=== PATIENT | female | born 1945 | race Two or more races ===

== ENCOUNTER → 2019-11-05 | Outpatient (CLI) | payer MEDICARE ==
--- NOTE | 2019-11-05 10:30 | RADIOLOGY REPORT (SQ) ---
EXAM DESCRIPTION: COOKIE SWALLOW AND BARIUM SWALLOW COMPLETED DATE/TIME: 11/05/2019 8:57 am REASON FOR STUDY: GASTRO-ESOPHAGEAL REFLUX DISEASE WITHOUT ESOPHAGITIS, K21.9 K21.9 GASTRO-ESOPHAGE AL REFLUX DISEASE WITHOUT ESOPHAGITIS GLOBUS SENSATION COMPARISON: None. TECHNIQUE: Videofluoroscopic swallowing examination was performed in conjunction with speech patholo gy. Videofluoroscopic imaging was obtained and reviewed and these are the findings: Under fluoroscopic guidance, patient ingested effervescent granules followed by thick and thin barium . Fluoroscopic spot images and routine radiographic images acquired and stored on PACS. 12 MM BARIUM TABLET GIVEN: Yes. Slight delay in passage through the distal esophagus and through the GE junction. RADIATION DOSE: 3 minutes 12 seconds of fluoroscopy was used. 6 images saved to PACS. LIMITATIONS: None FINDINGS: The patient was brought into the fluoro room and placed upright on a modified barium swall ow chair. The patient was then given multiple consistencies mixed with barium to swallow under live fluoroscopic video guidance. According to the Speech Pathologist there was no penetration or aspirat ion. Mild cricopharyngeal hypertrophy. Mild esophageal dysmotility is noted. No ulcerations or mass es are seen. Small sliding hiatal hernia with mild reflux identified. Slow passage of a 12 mm bariu m tablet without stricture. IMPRESSION: NO EVIDENCE OF PENETRATION OR ASPIRATION. MILD ESOPHAGEAL DYSMOTILITY WITHOUT EVIDENCE OF STRICTURE. ALL PLEASE SEE SPEECH PATHOLOGIST REPORT FOR OTHER FINDINGS AND RECOMMENDATIONS. COMMENT: Quality ID [id number]: Final reports for procedures using fluoroscopy that document radiation exp osure indices, or exposure time and number of fluorographic images (if radiation exposure indices are not available) TECHNICAL DOCUMENTATION: JOB ID: [id number] 2010 [employer]- All Rights Reserved Reading location - IP/workstation name: [email or web address]
--- NOTE | 2019-11-05 11:30 | ST Modified Barium Swallow ---
Recommendation - Recommendations Recommendations: No oral or pharyngeal phase swallowing deficits seen. Medical Diagnoses - Medical Diagnoses Medical Diagnosis Description & ICD-10 Code(s): K21.9 Other Medical Diagnoses/Co-Morbidities: per anne-marie report: thyroid nodule, COPD - ICD-10 Tx Diagnosis Coding (1) Gastro-esophageal reflux disease without esophagitis ICD-10 Code(s): K21.9 - GASTRO-ESOPHAGEAL REFLUX DISEASE WITHOUT ESOPHAGITIS (2) Dysphagia, unspecified ICD-10 Code(s): R13.10 - DYSPHAGIA, UNSPECIFIED ST Modified Barium Swallow - General Date: 11/05/19 Referring Physician: Dr. Dong Risks/Precautions: None Date of Onset: 10/19/17 - approximate onset date Reason for Referral: globus - History History obtained from: Patient -: Medical - Patient acted as her own historian. She reports having swallowing problems for about 2 years, and states "food gets stuck". She reports having to chew foods more and swallow liquids slowly. Predominate issue is globus sensation, no coughing with eating or drinking reported, no recent pnuemonia. Patient does have significant reflux, and is not on medications. Medications: patient did not provide medication list Allergies: per patient report: statins - Functional Status Prior Functional Status: INDEPENDENT: feeding Current Functional Limitations: feeding - globus - Subjective Patient/caregiver goal(s): safe swallow Cognitive-Linguistic Function: Functional Speech Intelligibility: WNL Current Nutritional Means: PO Current symptoms: c/o Globus sensation Pain: Patient reports, 0/5 - Objective Assessment: Upright, Left Lateral - Food Trials Used Food trials used: Thin liquids, Pureed, Regular The patient: Was Able to Self Feed - Oral-Motor Skills Dentition: Full Velo-pharyngeal function: Unremarkable Laryngeal Function: clear voicing - Assessment Oral prep: Normal Labial closure: Adequate Leakage: None Mastication: Adequate Lingual Movement: Normal Oral stage: Normal for this Procedure - Pharyngeal Stage Initiation of Pharyngeal Stage Reflex: Normal Decreased laryngeal elevation: No Reduced Velopharyngeal Closure: no Reduced pressure generation: No reduced tongue-based retraction: No Pre-swallow pooling in valleculae: None Pre-Swallow pooling in pyriforms: None Reduced Thyro-Hyoid approximation: No Reduced epiglottic excursion: No Reduced pharyngeal peristalsis/contraction: No Post-swallow residulas vallecular: None Post-Swallow residuals in pyriforms: None Reduced Cricopharyngeal opening: Yes - mild - Fall Risk Assessment Medications/Conditions that increase fall risks include: Antidepressants, sedatives, anti-arrhythmic, diuretic, benzodiazipenes, neuroleptics. BP regulation problems, cardiac problems, balance or gait deficits, neurological problems. Fall Risk Actions Taken: No action needed - Behavioral Observations During evaluation process patient: was pleasant, was cooperative, able to answer questions - Treatment / Educational Needs: Treatment/Education Needs: Treatment consisted of patient education on the role of the Speech Pathologist. Patient's plan of care and golas were communicated as well as scheduling and attendance policies. Recommendations for initial home program were shared. Patient demonstrated understanding and verbalized agreement. - Impression/Summary Laryngeal Penetration: No Tracheal Aspiration: no Patient presents with: Normal swallow at eval Risk of Aspiration: Mild Risk due to: underlying COPD places patient at higher risk of aspiration. Evaluation and Findings: No significant oral or pharyngeal findings. - Recommendations Solid diet recommendations: Regular Liquid Diet Modification: Thin Dysphagia therapy with CORE MACHINE TENDER: no Reflux Precautions: Taught to Patient Recommended techniques: Fully Upright During Meal, Small Bites and Sips Information, Precautions and Recommendations: Patient (Written), Patient (Verbal) - Time Total Time: 30 - Plan of Care Strategies to optimize patient understanding include:: ongoing assessment of educational needs, implementation of educational strategies, and re-education. - - -: Thank you for the opportunity to work with this patient and his/her family. Should you have any questions about this patient's plan or progress, I can be reached at [phone].
== END ==
LOC: RAD 07:52
PROVIDERS: ATTEND Internal Medicine Pulmonary Disease
DX: K21.9 Gastro-esophageal reflux disease without esophagitis (principal); K44.9 Diaphragmatic hernia without obstruction or gangrene; E04.1 Nontoxic single thyroid nodule; J44.9 Chronic obstructive pulmonary disease, unspecified
CPT/HCPCS: 74230

== ENCOUNTER → 2020-02-21 | Outpatient (CLI) | payer MEDICARE ==
--- NOTE | 2020-02-21 14:24 | RADIOLOGY REPORT (SQ) ---
EXAM DESCRIPTION: U/S NON-OB PELVIS TV W/O DOP IMAGES COMPLETED DATE/TIME: 02/21/2020 2:10 pm REASON FOR STUDY: POSTMENOPAUSAL BLEEDING N95.0 POSTMENOPAUSAL BLEEDING COMPARISON: None. TECHNIQUE: Dynamic and static grayscale images acquired of the pelvis via transvaginal approach and recorded on PACS. Additional selected color Doppler and spectral images recorded. LIMITATIONS: None. FINDINGS: UTERUS: Contour normal. No mass. ENDOMETRIAL STRIPE: The endometrium is prominent in appearance. Complex fluid is identified within the cavity. CERVIX: No nabothian cysts. RIGHT OVARY AND DOPPLER: Not visualized maybe due to overlying bowel gas. LEFT OVARY AND DOPPLER: Not identified may be due to overlying bowel gas. FREE FLUID: None noted. OTHER: No other significant finding. MEASUREMENTS: UTERUS: 8.8 x 3.6 x 3.8 cm. ENDOMETRIAL STRIPE: A 0.7 mm RIGHT OVARY: Not visualized LEFT OVARY: Not visualized IMPRESSION: 1. The endometrial cavity is prominent in appearance. Mild complex appearing fluid is present within the cavity. Differential diagnosis includes endometritis, polyps, as well as other un derlying pathology. 2. Neither ovary is identified sonographically maybe due to overlying bowel gas. TECHNICAL DOCUMENTATION: JOB ID: [id number] 2010 [employer]- All Rights Reserved Rev Reading location - IP/workstation name: [email or web address]
== END ==
LOC: RAD 11:31
PROVIDERS: ATTEND Obstetrics & Gynecology Gynecology
DX: N95.0 Postmenopausal bleeding (principal); E66.01 Morbid (severe) obesity due to excess calories
CPT/HCPCS: 76830

== ENCOUNTER 2020-03-06 13:03 | Inpatient (IN) | payer MEDICARE ==
[2020-03-06 13:45] LABS: ABSOLUTE EOSINOPHILS # (AUTO) 0.1 10^3/uL (0.0-0.6); ABSOLUTE LYMPHOCYTES (AUTO) 0.7 10^3/uL (0.5-4.7); ABSOLUTE MONOCYTES (AUTO) 0.5 10^3/uL (0.1-1.4); ABSOLUTE NEUT (AUTO) 7.2 10^3/uL (1.7-8.2); BASOPHILS % (AUTO) 0.5 % (0-2); EOSINOPHILS % (AUTO) 1.7 % (0-6); HEMATOCRIT 33.4 % (36.0-47.0); HEMOGLOBIN 10.4 g/dL (12.0-15.5); LYMPHOCYTES % (AUTO) 8.3 % (13-45); MEAN CORPUSCULAR HEMOGLOBIN 27.7 pg (27.0-33.4); MEAN CORPUSCULAR HGB CONC 31.2 g/dL (32.0-36.0); MEAN CORPUSCULAR VOLUME 89 fl (80-97); PLATELET COUNT 321 10^3/uL (150-450); RED BLOOD COUNT 3.76 10^6/uL (3.72-5.28); RED CELL DISTRIBUTION WIDTH 14.3 % (11.5-14.0); SEGMENTED NEUTROPHILS % (AUTO) 83.5 % (42-78); TOTAL CELLS COUNTED % (AUTO) 100 %; WHITE BLOOD COUNT 8.6 10^3/uL (4.0-10.5)
[2020-03-06 14:05] LABS: ALBUMIN 3.6 g/dL (3.5-5.0); ALKALINE PHOSPHATASE 91 U/L (38-126); ASPARTATE AMINO TRANSFERASE 22 U/L (14-36); BILIRUBIN,DIRECT 0.1 mg/dL (0.0-0.4); BILIRUBIN,TOTAL 0.4 mg/dL (0.2-1.3); BLOOD UREA NITROGEN 43 mg/dL (7-20); CALCIUM 9.1 mg/dL (8.4-10.2); CARBON DIOXIDE 34 mmol/L (22-30); CHLORIDE 99 mmol/L (98-107); CREATINE KINASE 96 U/L (30-135); GLUCOSE 192 mg/dL (75-110); POTASSIUM 5.4 mmol/L (3.6-5.0)
--- NOTE | 2020-03-06 14:14 | RADIOLOGY REPORT (SQ) ---
EXAM DESCRIPTION: CHEST SINGLE VIEW IMAGES COMPLETED DATE/TIME: 03/06/2020 2:00 pm REASON FOR STUDY: shortness of breath COMPARISON: None. EXAM PARAMETERS: NUMBER OF VIEWS: One view. TECHNIQUE: An AP view of the chest was obtained. RADIATION DOSE: NA LIMITATIONS: None. FINDINGS: LUNGS AND PLEURA: Asymmetric opacities in the inferior aspect of the right hemithorax. T he right lateral costophrenic sulcus is blunted. There is no pneumothorax. MEDIASTINUM AND HILAR STRUCTURES: No mediastinal or hilar contour abnormality. HEART AND VASCULAR STRUCTURES: The cardiac silhouette is enlarged. BONES: No acute findings. HARDWARE: Breast implants. OTHER: No other finding. IMPRESSION: Asymmetric opacities in the inferior aspect of the right hemithorax. Clinical correlati on to exclude a pneumonia is recommend. TECHNICAL DOCUMENTATION: JOB ID: [id number] 2010 [employer]- All Rights Reserved Reading location - IP/workstation name: [email or web address]
[2020-03-06 14:16] LABS: CREATINE KINASE MB 3.13 ng/mL (<4.55)
[2020-03-06 14:21] LABS: ANION GAP 4 (5-19)
[2020-03-06 14:23] LABS: TROPONIN I 0.091 ng/mL
[2020-03-06] MEDS ORDERED: IPRATROPIUM/ALBUTEROL 0.5-2.5 MG/3 ML AMPUL NEB ONE (14:50)
[2020-03-06] MEDS ORDERED: METHYLPREDNISOLONE INJ 125 MG/2 ML SDV IV ONE (14:50)
--- NOTE | 2020-03-06 15:04 | ER Document Report ---
ED Respiratory Problem - General Chief Complaint: Shortness Of Breath Stated Complaint: DIFFICULTY BREATHING Time Seen by Provider: 03/06/20 14:12 Mode of Arrival: Wheelchair Information source: Patient Notes: 74-year-old female patient with history of CHF and COPD presenting with difficulty breathing. Patient reports over the last 2 weeks she has had dyspnea on exertion and worsening respiratory status. She is on oxygen at home and states that the oxygen does not seem to be working. She gets short of breath doing any activities of daily living. She denies any fever but reports inter mittent cough. She has no known exposure to COVID-19 and has not traveled recently. TRAVEL OUTSIDE OF THE [place] IN LAST 30 DAYS: No - Related Data Allergies/Adverse Reactions: peach Allergy (Verified 03/06/20 13:40) Nzbunzg-Vcc-Eal Reductase Inhibitor Allergy (Verified 03/06/20 13:40) Home Medications: Lantus, Humalog, HCTZ, Cardizem, Proair, Ventolin Past Medical History - General Information source: Patient - Social History Smoking Status: Former Smoker Family History: Reviewed & Not Pertinent Patient has homicidal ideation: No - Past Medical History Cardiac Medical History: Reports: Hx Atrial Fibrillation, Hx Hypertension Pulmonary Medical History: Reports: Hx COPD Endocrine Medical History: Reports: Hx Diabetes Mellitus Type 2 Past Surgical History: Reports: Hx Tubal Ligation - Immunizations Immunizations up to date: Yes Review of Systems - Review of Systems Constitutional: denies: Chills, Fever Cardiovascular: Orthopnea, Dyspnea Respiratory: Cough, Short of breath, Wheezing -: Yes All other systems reviewed and negative Physical Exam - Vital signs Vitals: Resp Pulse Ox 23 H 100 03/06/20 13:24 03/06/20 13:24 - Notes Notes: PHYSICAL EXAMINATION: GENERAL: Obese female, short of breath.. HEAD: Atraumatic, normocephalic. EYES: Pupils equal round and reactive to light, extraocular movements intact, conjunctiva are normal. ENT: Nares patent, oropharynx clear without exudates. Moist mucous membranes. NECK: Normal range of motion, supple without lymphadenopathy LUNGS: Slight expiratory wheezes noted to right side, diminished at bases bilaterally. HEART: Regular rate and rhythm without murmurs ABDOMEN: Soft, large round, nontender, nondistended abdomen. No guarding, no rebound. No masses appreciated. Female : deferred Musculoskeletal: Normal range of motion, no pitting or edema. No cyanosis. NEUROLOGICAL: Cranial nerves grossly intact. Normal speech, normal gait. Normal sensory, motor exams PSYCH: Normal mood, normal affect. SKIN: Warm, Dry, normal turgor, no rashes or lesions noted. Course - Re-evaluation Re-evalutation: Laboratory 03/06/20 03/06/20 03/06/20 13:25 13:25 13:25 WBC 8.6 RBC 3.76 Hgb 10.4 L Hct 33.4 L MCV 89 MCH 27.7 MCHC 31.2 L RDW 14.3 H Plt Count 321 Lymph % (Auto) 8.3 L [place] % (Auto) 6.0 Eos % (Auto) 1.7 Baso % (Auto) 0.5 Absolute Neuts (auto) 7.2 Absolute Lymphs (auto) 0.7 Absolute Monos (auto) 0.5 Absolute Eos (auto) 0.1 Absolute Basos (auto) 0.0 Seg Neutrophils % 83.5 H Sodium 136.8 L Potassium 5.4 H Chloride 99 Carbon Dioxide 34 H Anion Gap 4 L BUN 43 H Creatinine 0.83 Est GFR ( Amer) > 60 Est GFR (MDRD) Non-Af > 60 Glucose 192 H Calcium 9.1 Total Bilirubin 0.4 Direct Bilirubin 0.1 Neonat Total Bilirubin Not Reportable Neonat Direct Bilirubin Not Reportable Neonat Indirect Bili Not Reportable AST 22 ALT 22 Alkaline Phosphatase 91 Creatine Kinase 96 CK-MB (CK-2) 3.13 Troponin I 0.091 NT-Pro-B Natriuret Pep 2760 H Total Protein 7.0 Albumin 3.6 Chest X-Ray 03/06/20 13:34 IMPRESSION: Asymmetric opacities in the inferior aspect of the right hemithorax. Clinical correlation to exclude a pneumonia is recommend. Spoke with hospitalist, Dee Navarro who is requesting a repeat troponin prior to patient's admission. Patient resting comfortably at this time, she is not h ypoxic as long as she is sitting in the bed on her oxygen. 03/06/20 19:56 Patient accepted for admission by hospitalist. She is being admitted due to her dyspnea on any exertion. She is in agreement with plan of care. - Vital Signs Vital signs: Temp Pulse Resp BP Pulse Ox 98.5 F 97 19 130/78 H 97 03/06/20 13:46 03/06/20 13:40 03/06/20 19:11 03/06/20 19:11 03/06/20 19:11 - Laboratory Result Diagrams: 03/06/20 13:25 03/06/20 13:25 Laboratory results interpreted by me: 03/06/20 03/06/20 03/06/20 13:25 13:25 13:25 Hgb 10.4 L Hct 33.4 L MCHC 31.2 L RDW 14.3 H Lymph % (Auto) 8.3 L Seg Neutrophils % 83.5 H Sodium 136.8 L Potassium 5.4 H Carbon Dioxide 34 H Anion Gap 4 L BUN 43 H Glucose 192 H NT-Pro-B Natriuret Pep 2760 H Urine Protein Urine Glucose (UA) Urine Blood Ur Leukocyte Esterase 03/06/20 16:05 Hgb Hct MCHC RDW Lymph % (Auto) Seg Neutrophils % Sodium Potassium Carbon Dioxide Anion Gap BUN Glucose NT-Pro-B Natriuret Pep Urine Protein >=500 H Urine Glucose (UA) 50 H Urine Blood LARGE H Ur Leukocyte Esterase SMALL H Discharge - Discharge Clinical Impression: COPD exacerbation Condition: Stable Disposition: ADMITTED INPATIENT Admitting Provider: Lima (Hospitalist) Unit Admitted: Medical Floor
[2020-03-06 16:44] LABS: APPEARANCE,URINE CLOUDY; BILIRUBIN,URINE NEGATIVE (NEGATIVE); COLOR,URINE YELLOW; GLUCOSE, URINE 50 mg/dL (NEGATIVE); KETONES,URINE NEGATIVE (NEGATIVE); LEUKOCYTE ESTERASE,URINE SMALL (NEGATIVE); NITRITE,URINE NEGATIVE (NEGATIVE); PROTEIN,URINE >=500 mg/dL (NEGATIVE); URINE SPECIFIC GRAVITY 1.015; UROBILINOGEN,URINE NEGATIVE mg/dL (<2.0)
[2020-03-06] MEDS ORDERED: CEFTRIAXONE 1 GM/D5W RTU 1 GM/50 ML RTUPB IV ONE (19:24)
--- NOTE | 2020-03-06 20:18 | EKG REPORT ---
SEVERITY:- NORMAL ECG - SINUS RHYTHM : Confirmed by: Kenji Stanley MD 06-Mar-2020 20:17:57
[2020-03-06] MEDS ORDERED: MELATONIN 5 MG TABLET PO PRN (20:32)
[2020-03-06] MEDS ORDERED: LORAZEPAM INJ 2 MG/1 ML VIAL IV PRN (20:32)
[2020-03-06] MEDS ORDERED: INSULIN REG, HUMAN 100 UNIT/ML 3 ML VIAL (PYX) SUBCUT PRN (20:32)
[2020-03-06] MEDS ORDERED: LEVALBUTEROL HCL NEB 0.63 MG/3 ML AMPUL NEB PRN (20:32)
[2020-03-06] MEDS ORDERED: MORPHINE SULFATE 10 MG/ML INJ IV PRN ×4 (20:32→20:53)
[2020-03-06] MEDS ORDERED: ACETAMINOPHEN 325 MG TABLET PO PRN (20:32)
[2020-03-06] MEDS ORDERED: MAGNESIUM HYDROXIDE SUSP 30 ML UDCUP PO PRN (20:32)
[2020-03-06] MEDS ORDERED: GUAIFENESIN SYRP 200 MG/10 ML UDC PO PRN (20:32)
[2020-03-06] MEDS ORDERED: MAG HYDROX/AL HYDROX/SIMETH SUSP 30 ML UDCUP PO PRN (20:32)
[2020-03-06] MEDS ORDERED: PROMETHAZINE HCL INJ 25 MG/1 ML VIAL IV PRN (20:32)
[2020-03-06] MEDS ORDERED: DEXTROSE 40% GEL 15 GM TUBE PO PRN ×2 (20:38)
[2020-03-06] MEDS ORDERED: GLUCAGON,HUMAN RECOMB 1 MG INJ IM PRN (20:38)
[2020-03-06] MEDS ORDERED: DEXTROSE 50%-WATER 25 GM/50 ML DISP.SYRIN IV PRN ×2 (20:38)
[2020-03-06] MEDS: METHYLPREDNISOLONE INJ 40 MG/1 ML SDV IV SCH (21:29)
[2020-03-06] MEDS: HEPARIN SOD (PORCINE) 5,000 UNIT/ML 1 ML VIAL SUBCUT SCH (23:47)
[2020-03-06] MEDS: FAMOTIDINE 20 MG TABLET PO SCH (23:47)
[2020-03-07] MEDS: IPRATROPIUM BROMIDE 0.02% NEB 0.5 MG/2.5 ML AMPUL NEB SCH ×2 (00:33→08:18)
[2020-03-07] MEDS: LEVALBUTEROL HCL NEB 1.25 MG/3 ML AMPUL NEB SCH ×3 (00:33→15:46)
[2020-03-07] MEDS: METHYLPREDNISOLONE INJ 40 MG/1 ML SDV IV SCH ×3 (03:19→17:51)
--- NOTE | 2020-03-07 03:45 | PDOC H&P ---
History of Present Illness Admission Date/PCP: 03/06/20 20:04 Dr. Chaney Patient complains of: Dyspnea History of Present Illness: BIANCA DICKENS is a 74 year old female who presented to the emergency room with a 1 month history of dyspnea. She admits progressively worsening dyspnea at rest over the last 1 month with accompanying progressively severe dyspnea on exertion over the last 2 weeks becoming so severe today (unable to perform activities of daily living) that she felt it necessary to come the emergency room. Her dyspnea has been associated with an intermittent nonproductive cough. She denies other associated or accompanying signs and symptoms. She admits prior similar episodes secondary to her COPD and CHF. She admits that this episode is very much like her usual exacerbations of COPD. She denies identification of any additional aggravating or ameliorating factors for her dyspnea. In the emergency room she was found to have severe hypoxia on exertion even with continuous supplemental oxygen. She was subsequently admitted to the hospital for further evaluation and treatment. Past Medical History Cardiac Medical History: Reports: Atrial Fibrillation, Congestive Heart Failure, Hypertension Denies: Coronary Artery Disease, Myocardial Infarction, Hyperlipidema Pulmonary Medical History: Reports: Asthma - As a child, Bronchitis, Chronic Obstructive Pulmonary Disease (COPD), Pneumonia, Respiratory Failure - Chronic hypoxic respiratory failure on supplemental oxygen @ home, Other - Restrictive lung disease secondary to morbid obesity Denies: Sleep Apnea EENT Medical History: Denies: Cataracts, Ears - Hearing aids Neurological Medical History: Denies: Hemorrhagic CVA, Ischemic CVA, Seizures Endocrine Medical History: Reports: Diabetes Mellitus Type 2, Obesity, Other Denies: Diabetes Mellitus Type 1, Hyperthyroidism, Hypothyroidism Renal/ Medical History: Reports: Other - Recent vaginal bleeding currently being investigated by PCP. 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 Denies: Arthritis, Gout Skin Medical History: Denies: Eczema, Psoriasis Psychiatric Medical History: Denies: Alcohol Dependency, Substance Abuse, Tobacco Dependency Traumatic Medical History: Reports: None Hematology: Denies: Anemia, Bleeding Tendencies Infectious Medical History: Reports: None Past Surgical History Past Surgical History: Bilateral breast reduction with bilateral breast implantations for cosmetic improvement, "tummy tuck surgery", heel spur surgery Past Surgical History: Reports: Orthopedic Surgery - Bilateral carpal tunnel, Tonsillectomy, Tubal Ligation, Other - Bilateral cataracts with lens replacements Social History Information Source: Patient Lives with: Family Smoking Status: Former Smoker Electronic Cigarette use?: No Frequency of Alcohol Use: None Hx Recreational Drug Use: No Drugs: None Hx Prescription Drug Abuse: No - Advance Directive Resuscitation Status: Full Code Surrogate healthcare decision maker:: David Dickens Family History Family History: Hypertension. denies: CAD, DM, Malignancy Parental Family History Reviewed: Yes Children Family History Reviewed: No Sibling(s) Family History Reviewed.: Yes Medication/Allergy Home Medications: Albuterol Sulfate [Proair HFA Inhalation Aerosol 8.5 gm MDI] 03/07/20 Diltiazem HCl [Diltiazem 24Hr ER] 03/07/20 Hydrochlorothiazide [Hydrodiuril 25 mg Tablet] 03/07/20 Insulin Glargine,Hum.rec.anlog [Lantus (Pyxis) Insulin 100 Unit/1 ml 10 ml] 03/07/20 Insulin Lispro [Humalog Insulin (Lispro) 100 unit/mL] 03/07/20 Irbesartan 03/07/20 Allergies/Adverse Reactions: peach Allergy (Verified 03/06/20 13:40) [id number] Reductase Inhibitor Allergy (Verified 03/06/20 13:40) Review of Systems Constitutional: ABSENT: chills, fever(s) Eyes: ABSENT: visual disturbances, other - Eye pain Ears: ABSENT: hearing changes, other - Ear pain Nose, Mouth, and Throat: ABSENT: headache(s), sore throat Cardiovascular: PRESENT: as per HPI, dyspnea on exertion. ABSENT: chest pain, edema, orthropnea, palpitations Respiratory: PRESENT: as per HPI, cough, dyspnea. ABSENT: hemoptysis, sputum Gastrointestinal: ABSENT: abdominal pain, constipation, diarrhea, nausea, vomiting Genitourinary: PRESENT: other - Recent UTI treated with 3 different antibiotics, recent vaginal bleeding currently being investigated. ABSENT: dysuria, hematuria Musculoskeletal: ABSENT: back pain, joint swelling Integumentary: ABSENT: pruritus, rash Neurological: ABSENT: confusion, convulsions, focal weakness, memory loss, syncope Psychiatric: ABSENT: anxiety, depression Endocrine: ABSENT: cold intolerance, heat intolerance, polydipsia, polyphagia, polyuria Hematologic/Lymphatic: ABSENT: easy bleeding, easy bruising Allergic/Immunologic: ABSENT: seasonal rhinorrhea Physical Exam Vital Signs: Temp Pulse Resp BP Pulse Ox 98.5 F 97 19 130/78 H 97 03/06/20 13:46 03/06/20 13:40 03/06/20 19:11 03/06/20 19:11 03/06/20 19:11 Intake & Output 03/04/20 03/05/20 03/06/20 23:59 23:59 23:59 Weight 118.3 kg General appearance: PRESENT: no acute distress, cooperative, morbidly obese, other - On supplemental oxygen via nasal cannula at the time of my evaluation Head exam: PRESENT: atraumatic, normocephalic Eye exam: PRESENT: conjunctiva pink. ABSENT: conjunctival injection, scleral icterus Ear exam: PRESENT: normal external ear exam. ABSENT: bleeding, drainage Mouth exam: PRESENT: dry mucosa, neck supple Neck exam: ABSENT: thyromegaly, tracheal deviation Respiratory exam: PRESENT: decreased breath sounds - Moderately decreased breath sounds throughout all cruz, prolonged expiratory phas - Moderately prolonged expiratory phase present throughout all cruz, symmetrical, wheezes - Moderate expiratory wheezes present throughout all cruz Cardiovascular exam: PRESENT: RRR. ABSENT: clicks, gallop, rubs Pulses: PRESENT: normal radial pulses, normal dorsalis pedis pul Vascular exam: PRESENT: normal capillary refill. ABSENT: pallor GI/Abdominal exam: PRESENT: normal bowel sounds, soft. ABSENT: tenderness Rectal exam: PRESENT: deferred Extremities exam: ABSENT: joint swelling, pedal edema Musculoskeletal exam: ABSENT: ambulatory - Usually uses a walker but is too dyspneic to attempt ambulation, deformity, dislocation Neurological exam: PRESENT: alert, oriented to person, oriented to place, oriented to time, oriented to situation, CN II-XII grossly intact. ABSENT: motor sensory deficit Psychiatric exam: PRESENT: appropriate affect, normal mood Skin exam: PRESENT: dry, intact, warm. ABSENT: jaundice, rash, urticaria Results Laboratory Results: 03/06/20 13:25 03/06/20 13:25 03/06/20 03/06/20 03/06/20 13:25 13:25 16:05 WBC 8.6 RBC 3.76 Hgb 10.4 L Hct 33.4 L MCV 89 MCH 27.7 MCHC 31.2 L RDW 14.3 H Plt Count 321 Seg Neutrophils % 83.5 H Sodium 136.8 L Potassium 5.4 H Chloride 99 Carbon Dioxide 34 H Anion Gap 4 L BUN 43 H Creatinine 0.83 Est GFR ( Amer) > 60 Glucose 192 H Calcium 9.1 Total Bilirubin 0.4 AST 22 Alkaline Phosphatase 91 Total Protein 7.0 Albumin 3.6 Urine Color YELLOW Urine Appearance CLOUDY Urine pH 5.0 Ur Specific [place] 1.015 Urine Protein >=500 H Urine Glucose (UA) 50 H Urine Ketones NEGATIVE Urine Blood LARGE H Urine Nitrite NEGATIVE Ur Leukocyte Esterase SMALL H Urine WBC (Auto) 104 Urine RBC (Auto) >182 03/06/20 03/06/20 03/06/20 13:25 13:25 18:49 Creatine Kinase 96 CK-MB (CK-2) 3.13 Troponin I 0.091 0.087 NT-Pro-B Natriuret Pep 2760 H Impressions: Chest X-Ray 03/06/20 13:34 IMPRESSION: Asymmetric opacities in the inferior aspect of the right hemithorax. Clinical correlation to exclude a pneumonia is recommend. Assessment and Plan - Diagnosis (1) COPD exacerbation Is this a current diagnosis for this admission?: Yes (2) Acute and chronic respiratory failure with hypoxia Is this a current diagnosis for this admission?: Yes (3) Diabetes mellitus type 2 in obese Is this a current diagnosis for this admission?: Yes (4) Hypertension Qualifiers: Hypertension type: essential hypertension Qualified Code(s): I10 - Essential (primary) hypertension Is this a current diagnosis for this admission?: Yes (5) Congestive heart failure Qualifiers: Heart failure type: unspecified Heart failure chronicity: unspecified Qualified Code(s): I50.9 - Heart failure, unspecified Is this a current diagnosis for this admission?: Yes (6) Gastro-esophageal reflux disease without esophagitis Is this a current diagnosis for this admission?: Yes (7) Anemia Qualifiers: Anemia type: unspecified type Qualified Code(s): D64.9 - Anemia, unspecified Is this a current diagnosis for this admission?: Yes (8) Morbid obesity Is this a current diagnosis for this admission?: Yes - Plan Summary Summary: Patient will be admitted to the medical floor where she will receive routine supportive and symptomatic cares. She will be treated with an aggressive pulmonary toilet utilizing nebulized Xopenex, Atrovent, Mucomyst and Pulmicort. She will receive a continuation of a short burst of steroid therapy with Solu- Medrol 40 mg IV every 6 hours x3 doses. She will receive supplemental oxygen to maintain an adequate oxygen saturation utilizing nasal cannula oxygen with possible use of noninvasive airway pressure support devices such as BiPAP or CPAP if needed. CBCs, metabolic profiles, arterial and/or venous blood gases and magnesium levels will be obtained as appropriate. A thyroid profile, lipid profile and hemoglobin A1c will be obtained. Patient will be on a cardiac and d iabetic restricted diet. Patient's usual medications will be resumed, as appropriate, once her medication list has been verified and reconciled. She will use Ativan 1 mg IV every 4 hours as needed for anxiety or restlessness. She will use morphine sulfate 2 to 4 mg IV every 2 hours as needed for pain. Before meals and at bedtime Accu-Cheks will be performed with sliding scale regular insulin used for hyperglycemia and a hypoglycemic protocol in place. - Time Time Spent with patient: 15-24 minutes Medications reviewed and adjusted accordingly: Yes Anticipated discharge: Home - Inpatient Certification Based on my medical assessment, after consideration of the patient's norma rbidities, presenting symptoms, or acuity I expect that the services needed warrant INPATIENT care.: Yes I certify that my determination is in accordance with my understanding of Medicare's requirements for reasonable and necessary INPATIENT services [42 CFR 412.3e].: Yes Medical Necessity: Significant Comorbidiites Make Outpatient Treatment Too Risky, Need Close Monitoring Due to Risk of Patient Decompensation, Need for Nebulizer Therapy and Monitoring of Response, Risk of Complication if Not Cared For in Hospital
[2020-03-07 05:07] LABS: APPEARANCE,URINE SLIGHTLY-CLOUDY; BILIRUBIN,URINE NEGATIVE (NEGATIVE); COLOR,URINE YELLOW; GLUCOSE, URINE >=500 mg/dL (NEGATIVE); KETONES,URINE TRACE mg/dL (NEGATIVE); PROTEIN,URINE >=500 mg/dL (NEGATIVE); URINE SPECIFIC GRAVITY 1.014; UROBILINOGEN,URINE NEGATIVE mg/dL (<2.0)
[2020-03-07] MEDS: HEPARIN SOD (PORCINE) 5,000 UNIT/ML 1 ML VIAL SUBCUT SCH ×3 (05:23→22:39)
[2020-03-07 06:47] LABS: HEMATOCRIT 34.9 % (36.0-47.0); MEAN CORPUSCULAR HEMOGLOBIN 27.9 pg (27.0-33.4); MEAN CORPUSCULAR HGB CONC 31.4 g/dL (32.0-36.0); MEAN CORPUSCULAR VOLUME 89 fl (80-97); PLATELET COUNT 335 10^3/uL (150-450); RED BLOOD COUNT 3.94 10^6/uL (3.72-5.28); RED CELL DISTRIBUTION WIDTH 14.3 % (11.5-14.0); VENOUS BLOOD BASE EXCESS 3.7 mmol/L; VENOUS BLOOD HCO3 31.4 mmol/L (20-32); VENOUS BLOOD PCO2 64.1 mmHg (35-63); VENOUS BLOOD PH 7.31 (7.30-7.42)
[2020-03-07 06:57] LABS: ABSOLUTE RETICS # 0.062 10^6/uL (0.028-0.122); RETICULOCYTE COUNT (AUTO) 1.56 % (0.66-2.85)
[2020-03-07 07:11] LABS: ANION GAP 7 (5-19); BLOOD UREA NITROGEN 44 mg/dL (7-20); CALCIUM 9.4 mg/dL (8.4-10.2); CARBON DIOXIDE 32 mmol/L (22-30); CHLORIDE 95 mmol/L (98-107); CHOLESTEROL 247.37 mg/dL (0-200); GLUCOSE 356 mg/dL (75-110); IRON(TIBC) 70.1 ug/dL (37-170); TRIGLYCERIDES 142 mg/dL (<150)
[2020-03-07 07:22] LABS: DIRECT LDL 156 mg/dL (<100)
[2020-03-07 07:26] LABS: POTASSIUM 6.1 mmol/L (3.6-5.0)
[2020-03-07] MEDS ORDERED: SODIUM POLYSTYRENE SULFONATE 15 GM/60 ML PO ONE (07:43)
[2020-03-07] MEDS: BUDESONIDE NEB 0.5 MG/2 ML AMPUL NEB SCH ×2 (08:18→19:52)
[2020-03-07] MEDS: ACETYLCYSTEINE 20% SOLN 800 MG/4 ML VIAL.NEB NEB SCH ×2 (08:18→19:52)
[2020-03-07] MEDS: LEVOFLOXACIN 750 MG TABLET PO SCH (10:05)
[2020-03-07] MEDS: DOCUSATE SODIUM 100 MG CAPSULE PO SCH ×2 (10:06→17:49)
[2020-03-07] MEDS: FAMOTIDINE 20 MG TABLET PO SCH ×2 (10:06→22:39)
[2020-03-07] MEDS ORDERED: (PENDING PHARMACY ID) (Albuterol Sulfate 2 PUFF) IH PRN (10:43)
[2020-03-07] MEDS ORDERED: (PENDING PHARMACY ID) (Diltiazem Hcl [Diltiazem 24hr Er] 120 MG) PO SCH (10:45)
[2020-03-07] MEDS ORDERED: CHOLECALCIFEROL PO SCH (10:45)
[2020-03-07] MEDS ORDERED: (PENDING PHARMACY ID) (Irbesartan [Irbesartan] 300 MG) PO SCH (10:45)
[2020-03-07] MEDS ORDERED: ALBUTEROL SULFATE HFA (90 MCG/PUFF) 200 PUFF/8.5 GM MDI IH PRN ×2 (11:18→14:30)
--- NOTE | 2020-03-07 11:27 | EKG REPORT ---
SEVERITY:- ABNORMAL ECG - SINUS RHYTHM CONSIDER LEFT VENTRICULAR HYPERTROPHY : Confirmed by: Kenji Stanley MD 07-Mar-2020 11:26:57
[2020-03-07] MEDS: HYDROCHLOROTHIAZIDE 25 MG TABLET PO SCH (11:53)
[2020-03-07] MEDS: INSULIN LISPRO 100 UNIT/ML 3 ML VIAL SUBCUT SCH ×4 (11:53→22:29)
[2020-03-07] MEDS: DILTIAZEM HCL 120 MG CAP.SR.24H PO SCH (11:54)
[2020-03-07] MEDS: LOSARTAN POTASSIUM 50 MG TABLET PO SCH (11:54)
[2020-03-07] MEDS ORDERED: DEXTROSE 40% GEL 15 GM TUBE PO PRN ×4 (14:14→14:16)
[2020-03-07] MEDS ORDERED: GLUCAGON,HUMAN RECOMB 1 MG INJ IM PRN (14:16)
[2020-03-07] MEDS ORDERED: DEXTROSE 50%-WATER 25 GM/50 ML DISP.SYRIN IV PRN ×2 (14:16)
--- NOTE | 2020-03-07 14:18 | PDOC PROGRESS REPORT ---
Subjective Progress Note for:: 03/07/20 Subjective:: BIANCA SERVIN is a 74 year old female who presented to the emergency room with a 1 month history of dyspnea. She admits progressively worsening dyspnea at rest over the last 1 month with accompanying progressively severe dyspnea on exertion over the last 2 weeks becoming so severe today (unable to perform activities of daily living) that she felt it necessary to come the emergency room. Her dyspnea has been associated with an intermittent nonproductive cough. She denies other associated or accompanying signs and symptoms. She admits prior similar episodes secondary to her COPD and CHF. She admits that this episode is very much like her usual exacerbations of COPD. She denies identification of any additional aggravating or ameliorating factors for her dyspnea. In the emergency room she was found to have severe hypoxia on exertion even with continuous supplemental oxygen. She was subsequently admitted to the hospital for further evaluation and treatment. 03/07/2020. No acute events overnight. Patient reporting mild improvement of her symptoms, still complaining of getting winded easily, using nebs on my encounter, in no apparent distress, denies any fever, chills, nausea, vomiting, diarrhea, constipation or any urinary symptoms. Reason For Visit: ACUTE EXACERBATION OF COPD Physical Exam Vital Signs: Temp Pulse Resp BP Pulse Ox 97.7 F 97 18 122/55 L 93 03/07/20 04:00 03/07/20 08:17 03/07/20 08:17 03/07/20 04:00 03/07/20 08:17 Intake & Output 03/06/20 03/07/20 03/08/20 06:59 06:59 06:59 Intake Total 50 Output Total 1 Balance 49 Weight 118.3 kg 118.3 kg General appearance: PRESENT: morbidly obese Head exam: PRESENT: atraumatic, normocephalic Respiratory exam: PRESENT: clear to auscultation ute, decreased breath sounds. ABSENT: rales, rhonchi, wheezes Cardiovascular exam: PRESENT: RRR. ABSENT: diastolic murmur, rubs, systolic murmur GI/Abdominal exam: PRESENT: normal bowel sounds, soft. ABSENT: distended, guarding, mass, organolmegaly, rebound, tenderness Neurological exam: PRESENT: alert, awake, oriented to person, oriented to place, oriented to time, oriented to situation, CN II-XII grossly intact. ABSENT: motor sensory deficit Results Laboratory Results: 03/07/20 06:21 03/07/20 06:21 03/06/20 03/06/20 03/06/20 13:25 13:25 13:25 WBC 8.6 RBC 3.76 Hgb 10.4 L Hct 33.4 L MCV 89 MCH 27.7 MCHC 31.2 L RDW 14.3 H Plt Count 321 Seg Neutrophils % 83.5 H Retic Count (auto) VBG pH VBG pCO2 VBG HCO3 VBG Base Excess Sodium 136.8 L Potassium 5.4 H Chloride 99 Carbon Dioxide 34 H Anion Gap 4 L BUN 43 H Creatinine 0.83 Est GFR ( Amer) > 60 Glucose 192 H Calcium 9.1 Magnesium Iron TIBC % Saturation Transferrin Ferritin Total Bilirubin 0.4 AST 22 Alkaline Phosphatase 91 Total Protein 7.0 Albumin 3.6 Triglycerides Cholesterol LDL Cholesterol Direct VLDL Cholesterol HDL Cholesterol Vitamin B12 Folate TSH Free T3 pg/mL 2.88 Urine Color Urine Appearance Urine pH Ur Specific [place] Urine Protein Urine Glucose (UA) Urine Ketones Urine Blood Urine Nitrite Ur Leukocyte Esterase Urine WBC (Auto) Urine RBC (Auto) 03/06/20 03/07/20 03/07/20 16:05 04:02 06:21 WBC 8.0 RBC 3.94 Hgb 11.0 L Hct 34.9 L MCV 89 MCH 27.9 MCHC 31.4 L RDW 14.3 H Plt Count 335 Seg Neutrophils % Retic Count (auto) VBG pH VBG pCO2 VBG HCO3 VBG Base Excess Sodium Potassium Chloride Carbon Dioxide Anion Gap BUN Creatinine Est GFR ( Amer) Glucose Calcium Magnesium Iron TIBC % Saturation Transferrin Ferritin Total Bilirubin AST Alkaline Phosphatase Total Protein Albumin Triglycerides Cholesterol LDL Cholesterol Direct VLDL Cholesterol HDL Cholesterol Vitamin B12 Folate TSH Free T3 pg/mL Urine Color YELLOW YELLOW Urine Appearance CLOUDY SLIGHTLY-CLOUDY Urine pH 5.0 5.0 Ur Specific [place] 1.015 1.014 Urine Protein >=500 H >=500 H Urine Glucose (UA) 50 H >=500 H Urine Ketones NEGATIVE TRACE H Urine Blood LARGE H MODERATE H Urine Nitrite NEGATIVE Ur Leukocyte Esterase SMALL H Urine WBC (Auto) 104 Urine RBC (Auto) >182 28 03/07/20 03/07/20 03/07/20 06:21 06:21 06:21 WBC RBC Hgb Hct MCV MCH MCHC RDW Plt Count Seg Neutrophils % Retic Count (auto) VBG pH 7.31 VBG pCO2 64.1 H VBG HCO3 31.4 VBG Base Excess 3.7 Sodium 133.6 L Potassium 6.1 H* Chloride 95 L Carbon Dioxide 32 H Anion Gap 7 BUN 44 H Creatinine 0.91 Est GFR ( Amer) > 60 Glucose 356 H Calcium 9.4 Magnesium 1.9 Iron TIBC % Saturation Transferrin Ferritin Total Bilirubin AST Alkaline Phosphatase Total Protein Albumin Triglycerides 142 Cholesterol 247.37 H LDL Cholesterol Direct 156 H VLDL Cholesterol 28.0 HDL Cholesterol 72 Vitamin B12 Folate TSH 0.85 Free T3 pg/mL Urine Color Urine Appearance Urine pH Ur Specific [place] Urine Protein Urine Glucose (UA) Urine Ketones Urine Blood Urine Nitrite Ur Leukocyte Esterase Urine WBC (Auto) Urine RBC (Auto) 03/07/20 03/07/20 03/07/20 06:21 06:21 06:21 WBC RBC Hgb Hct MCV MCH MCHC RDW Plt Count Seg Neutrophils % Retic Count (auto) 1.56 VBG pH VBG pCO2 VBG HCO3 VBG Base Excess Sodium Potassium Chloride Carbon Dioxide Anion Gap BUN Creatinine Est GFR ( Amer) Glucose Calcium Magnesium Iron 70.1 TIBC 318 % Saturation 22 Transferrin 251.67 Ferritin 69.90 Total Bilirubin AST Alkaline Phosphatase Total Protein Albumin Triglycerides Cholesterol LDL Cholesterol Direct VLDL Cholesterol HDL Cholesterol Vitamin B12 442.0 Folate 12.80 TSH Free T3 pg/mL Urine Color Urine Appearance Urine pH Ur Specific [place] Urine Protein Urine Glucose (UA) Urine Ketones Urine Blood Urine Nitrite Ur Leukocyte Esterase Urine WBC (Auto) Urine RBC (Auto) 03/06/20 03/06/20 03/06/20 13:25 13:25 18:49 Creatine Kinase 96 CK-MB (CK-2) 3.13 Troponin I 0.091 0.087 NT-Pro-B Natriuret Pep 2760 H Impressions: Chest X-Ray 03/06/20 13:34 IMPRESSION: Asymmetric opacities in the inferior aspect of the right hemithorax. Clinical correlation to exclude a pneumonia is recommend. Assessment and Plan - Diagnosis (1) Acute and chronic respiratory failure with hypoxia Is this a current diagnosis for this admission?: Yes Plan: Likely combination of acute COPD exacerbation complicated by underlying CHF. History of COPD on home O2 3 L/min. Improving. SPO2 WNL on 3 to 4 L. Continue BiPAP, duo nebs, LABA, LABA, ICS, flutter valve, incentive spirometry, IV steroids. (2) COPD exacerbation Is this a current diagnosis for this admission?: Yes Plan: Former smoker. History of COPD on 3 L oxygen nasal cannula. Plan as per #1. (3) Diabetes mellitus type 2 in obese Is this a current diagnosis for this admission?: Yes Plan: Hemoglobin A1c 7%. Blood glucose not optimized. Sees director geophysical laboratory as outpatient is on Lantus and Humalog. Diabetic diet, sliding scale insulin, pre-meal insulin, basal insulin, Accu- Chek, hypoglycemia protocol. (4) Hypertension Qualifiers: Hypertension type: essential hypertension Qualified Code(s): I10 - Essential (primary) hypertension Is this a current diagnosis for this admission?: Yes Plan: Controlled. Restart home meds. Adjust meds as needed. Outpatient PCP follow- up. (5) Morbid obesity Is this a current diagnosis for this admission?: Yes Plan: BMI 50.9. TSH WNL. Diet and lifestyle modification recommended. (6) Abnormal vaginal bleeding in postmenopausal patient Is this a current diagnosis for this admission?: Yes Plan: Patient gives history of vaginal bleeding for the last several months. Patient's PCP is aware and patient has been referred to [facility] and has had a biopsy of her uterus. Pending results. Outpatient PCP and [facility] follow-up. (7) Anemia Qualifiers: Anemia type: iron deficiency Is this a current diagnosis for this admission?: Yes Plan: Most likely due to vaginal bleed. Monitor H&H. Supportive transfusions. Denies any nosebleeds, hematemesis, hemoptysis, melena or hematochezia. Endorses history of vaginal bleeding. Plan as per above. (8) Congestive heart failure Qualifiers: Heart failure type: systolic Heart failure chronicity: unspecified Qualified Code(s): I50.20 - Unspecified systolic (congestive) heart failure Is this a current diagnosis for this admission?: Yes Plan: History of systolic heart failure. Presented with acute CHF exacerbation. No echo available. Consulting [employer] Dr. Vallejo whom she saw recently. Denies any anginal symptoms. proBNP 2790. No baseline available. Troponin mildly elevated. Likely demand mismatch. EKG no acute changes. Cardiac diet. Fluid restriction. Resume home meds.
[2020-03-07] MEDS ORDERED: INSULIN GLARGINE HUM REC ANLOG 100 UNIT SQ SCH (22:00)
[2020-03-07] MEDS ORDERED: INSULIN GLARGINE,HUM.REC.ANLOG 1,000 UNIT/10 ML VIAL (PYX) SUBCUT ONE (22:26)
[2020-03-07] MEDS: INSULIN GLARGINE,HUM.REC.ANLOG 1,000 UNIT/10 ML VIAL SUBCUT SCH (22:28)
[2020-03-08] MEDS: LEVALBUTEROL HCL NEB 1.25 MG/3 ML AMPUL NEB SCH ×4 (00:12→20:06)
[2020-03-08] MEDS: METHYLPREDNISOLONE INJ 40 MG/1 ML SDV IV SCH ×3 (02:29→17:09)
[2020-03-08] MEDS: HEPARIN SOD (PORCINE) 5,000 UNIT/ML 1 ML VIAL SUBCUT SCH ×3 (05:22→22:43)
[2020-03-08 06:33] LABS: HEMATOCRIT 33.7 % (36.0-47.0); HEMOGLOBIN 10.9 g/dL (12.0-15.5); MEAN CORPUSCULAR HEMOGLOBIN 28.1 pg (27.0-33.4); MEAN CORPUSCULAR HGB CONC 32.4 g/dL (32.0-36.0); MEAN CORPUSCULAR VOLUME 87 fl (80-97); PLATELET COUNT 322 10^3/uL (150-450); RED BLOOD COUNT 3.89 10^6/uL (3.72-5.28); RED CELL DISTRIBUTION WIDTH 14.4 % (11.5-14.0); WHITE BLOOD COUNT 9.4 10^3/uL (4.0-10.5)
[2020-03-08 06:59] LABS: ANION GAP 6 (5-19); BLOOD UREA NITROGEN 52 mg/dL (7-20); CALCIUM 9.2 mg/dL (8.4-10.2); CARBON DIOXIDE 34 mmol/L (22-30); CHLORIDE 94 mmol/L (98-107); GLUCOSE 233 mg/dL (75-110); POTASSIUM 5.3 mmol/L (3.6-5.0)
[2020-03-08] MEDS: INSULIN LISPRO 100 UNIT/ML 3 ML VIAL SUBCUT SCH ×7 (07:25→22:44)
[2020-03-08] MEDS: BUDESONIDE NEB 0.5 MG/2 ML AMPUL NEB SCH ×2 (08:13→20:06)
[2020-03-08] MEDS: ACETYLCYSTEINE 20% SOLN 800 MG/4 ML VIAL.NEB NEB SCH ×2 (08:13→20:06)
[2020-03-08] MEDS ORDERED: SODIUM POLYSTYRENE SULFONATE 15 GM/60 ML PO ONE (09:00)
[2020-03-08] MEDS: LOSARTAN POTASSIUM 50 MG TABLET PO SCH (10:00)
[2020-03-08] MEDS: HYDROCHLOROTHIAZIDE 25 MG TABLET PO SCH (10:01)
[2020-03-08] MEDS: LEVOFLOXACIN 750 MG TABLET PO SCH (10:01)
[2020-03-08] MEDS: FAMOTIDINE 20 MG TABLET PO SCH ×2 (10:02→22:44)
[2020-03-08] MEDS: DOCUSATE SODIUM 100 MG CAPSULE PO SCH ×2 (10:02→17:10)
[2020-03-08] MEDS: DILTIAZEM HCL 120 MG CAP.SR.24H PO SCH (10:02)
[2020-03-08] MEDS: CHOLECALCIFEROL (D3) 1,000 UNIT (25 MCG) TABLET PO SCH (10:03)
--- NOTE | 2020-03-08 12:19 | PDOC PROGRESS REPORT ---
Subjective Progress Note for:: 03/08/20 Subjective:: BIANCA SERVIN is a 74 year old female who presented to the emergency room with a 1 month history of dyspnea. She admits progressively worsening dyspnea at rest over the last 1 month with accompanying progressively severe dyspnea on exertion over the last 2 weeks becoming so severe today (unable to perform activities of daily living) that she felt it necessary to come the emergency room. Her dyspnea has been associated with an intermittent nonproductive cough. She denies other associated or accompanying signs and symptoms. She admits prior similar episodes secondary to her COPD and CHF. She admits that this episode is very much like her usual exacerbations of COPD. She denies identification of any additional aggravating or ameliorating factors for her dyspnea. In the emergency room she was found to have severe hypoxia on exertion even with continuous supplemental oxygen. She was subsequently admitted to the hospital for further evaluation and treatment. 03/07/2020. No acute events overnight. Patient reporting mild improvement of her symptoms, still complaining of getting winded easily, using nebs on my encounter, in no apparent distress, denies any fever, chills, nausea, vomiting, diarrhea, constipation or any urinary symptoms. 03/08/2020. No acute events overnight however patient very anxious about her elevated blood sugars, unfortunately patient tries to self manage her diabetes in the hospital, last night she refused to take her Lantus stating that she does not need it, patient does not understand why her sugars are not controlled, patient was informed that her sugars may be elevated in the hospital as she is using her Lantus and also receiving steroids for her COPD exacerbation, patient was extensively counseled about diabetes management and she agreed to take her Lantus tonight, reporting some improvement of her respiratory symptoms otherwise denies any chest pain, nausea, vomiting, diarrhea, constipation or any urinary symptoms. Reason For Visit: ACUTE EXACERBATION OF COPD Physical Exam Vital Signs: Temp Pulse Resp BP Pulse Ox 98.4 F 86 20 122/51 L 96 03/08/20 11:51 03/08/20 11:51 03/08/20 11:51 03/08/20 11:51 03/08/20 11:51 Intake & Output 03/07/20 03/08/20 03/09/20 06:59 06:59 06:59 Intake Total 50 670 Output Total 1 2 Balance 49 668 Weight 118.3 kg 118.3 kg General appearance: PRESENT: no acute distress, morbidly obese, well-developed, well-nourished Head exam: PRESENT: atraumatic, normocephalic Respiratory exam: PRESENT: decreased breath sounds, prolonged expiratory phas. ABSENT: rales, rhonchi, wheezes GI/Abdominal exam: PRESENT: ascites Neurological exam: PRESENT: alert, awake, oriented to person, oriented to place, oriented to time, oriented to situation, CN II-XII grossly intact. ABSENT: motor sensory deficit Psychiatric exam: PRESENT: anxious Results Laboratory Results: 03/08/20 05:51 03/08/20 05:51 03/08/20 03/08/20 05:51 05:51 WBC 9.4 RBC 3.89 Hgb 10.9 L Hct 33.7 L MCV 87 MCH 28.1 MCHC 32.4 RDW 14.4 H Plt Count 322 Sodium 133.5 L Potassium 5.3 H Chloride 94 L Carbon Dioxide 34 H Anion Gap 6 BUN 52 H Creatinine 0.94 Est GFR ( Amer) > 60 Glucose 233 H Calcium 9.2 Magnesium 1.9 03/06/20 03/06/20 03/06/20 13:25 13:25 18:49 Creatine Kinase 96 CK-MB (CK-2) 3.13 Troponin I 0.091 0.087 NT-Pro-B Natriuret Pep 2760 H Impressions: Chest X-Ray 03/06/20 13:34 IMPRESSION: Asymmetric opacities in the inferior aspect of the right hemithorax. Clinical correlation to exclude a pneumonia is recommend. Assessment and Plan - Diagnosis (1) Acute and chronic respiratory failure with hypoxia Is this a current diagnosis for this admission?: Yes Plan: Likely combination of acute COPD exacerbation complicated by underlying CHF. History of COPD on home O2 3 L/min. Improving. SPO2 WNL on 3 to 4 L. Continue BiPAP, duo nebs, LABA, LABA, ICS, flutter valve, incentive spirometry, IV steroids. (2) COPD exacerbation Is this a current diagnosis for this admission?: Yes Plan: Former smoker. History of COPD on 3 L oxygen nasal cannula. Plan as per #1. (3) Diabetes mellitus type 2 in obese Is this a current diagnosis for this admission?: Yes Plan: Hemoglobin A1c 7%. Blood glucose not optimized. Sees service tester as outpatient is on Lantus and Humalog. Diabetic diet, sliding scale insulin, pre-meal insulin, basal insulin, Accu- Chek, hypoglycemia protocol. (4) Hypertension Qualifiers: Hypertension type: essential hypertension Qualified Code(s): I10 - Esse ntial (primary) hypertension Is this a current diagnosis for this admission?: Yes Plan: Controlled. Restart home meds. Adjust meds as needed. Outpatient PCP follow- up. (5) Morbid obesity Is this a current diagnosis for this admission?: Yes Plan: BMI 50.9. TSH WNL. Diet and lifestyle modification recommended. (6) Abnormal vaginal bleeding in postmenopausal patient Is this a current diagnosis for this admission?: Yes Plan: Patient gives history of vaginal bleeding for the last several months. UA positive for hematuria which most likely is due to vaginal bleeding. Patient's PCP is aware and patient has been referred to ENFORCEMENT OFFICER and has had a biopsy of her uterus. Pending results. Outpatient PCP and ENFORCEMENT OFFICER follow-up. (7) Anemia Qualifiers: Anemia type: iron deficiency Is this a current diagnosis for this admission?: Yes Plan: Most likely due to vaginal bleed. Monitor H&H. Supportive transfusions. Denies any nosebleeds, hematemesis, hemoptysis, melena or hematochezia. Endorses history of vaginal bleeding. Plan as per above. (8) Congestive heart failure Qualifiers: Heart failure type: systolic Heart failure chronicity: unspecified Qualified Code(s): I50.20 - Unspecified systolic (congestive) heart failure Is this a current diagnosis for this admission?: Yes Plan: History of systolic heart failure. Presented with acute CHF exacerbation. No echo available. Manager Animation Dr. Vallejo whom she saw recently. Denies any anginal symptoms. proBNP 2790. No baseline available. Troponin mildly elevated. Likely demand mismatch. EKG no acute changes. Cardiac diet. Fluid restriction. Resume home meds. (9) Hyperkalemia Is this a current diagnosis for this admission?: Yes Plan: No acute EKG changes. Hyperkalemia protocol. Potassium level tomorrow.
[2020-03-08] MEDS ORDERED: DEXTROSE 40% GEL 15 GM TUBE PO PRN ×2 (12:21)
[2020-03-08] MEDS ORDERED: DEXTROSE 50%-WATER 25 GM/50 ML DISP.SYRIN IV PRN ×2 (12:21)
[2020-03-08] MEDS ORDERED: GLUCAGON,HUMAN RECOMB 1 MG INJ IM PRN (12:21)
[2020-03-08] MEDS: IPRATROPIUM BROMIDE 0.02% NEB 0.5 MG/2.5 ML AMPUL NEB SCH ×2 (14:06→20:06)
[2020-03-08] MEDS ORDERED: INSULIN GLARGINE,HUM.REC.ANLOG 1,000 UNIT/10 ML VIAL (PYX) SUBCUT ONE (22:31)
[2020-03-08] MEDS: INSULIN GLARGINE,HUM.REC.ANLOG 1,000 UNIT/10 ML VIAL SUBCUT SCH (22:44)
[2020-03-09] MEDS: METHYLPREDNISOLONE INJ 40 MG/1 ML SDV IV SCH ×3 (02:29→17:40)
[2020-03-09] MEDS: HEPARIN SOD (PORCINE) 5,000 UNIT/ML 1 ML VIAL SUBCUT SCH ×2 (05:15→13:54)
[2020-03-09 07:16] LABS: ANION GAP 6 (5-19); BLOOD UREA NITROGEN 58 mg/dL (7-20); CALCIUM 9.8 mg/dL (8.4-10.2); CARBON DIOXIDE 35 mmol/L (22-30); CHLORIDE 100 mmol/L (98-107); GLUCOSE 137 mg/dL (75-110); POTASSIUM 4.9 mmol/L (3.6-5.0)
[2020-03-09] MEDS: INSULIN LISPRO 100 UNIT/ML 3 ML VIAL SUBCUT SCH ×6 (07:48→16:19)
[2020-03-09 08:06] LABS: HEMATOCRIT 35.9 % (36.0-47.0); HEMOGLOBIN 11.4 g/dL (12.0-15.5); MEAN CORPUSCULAR HEMOGLOBIN 27.4 pg (27.0-33.4); MEAN CORPUSCULAR HGB CONC 31.7 g/dL (32.0-36.0); MEAN CORPUSCULAR VOLUME 87 fl (80-97); PLATELET COUNT 342 10^3/uL (150-450); RED BLOOD COUNT 4.15 10^6/uL (3.72-5.28); RED CELL DISTRIBUTION WIDTH 14.7 % (11.5-14.0); WHITE BLOOD COUNT 8.4 10^3/uL (4.0-10.5)
[2020-03-09] MEDS: BUDESONIDE NEB 0.5 MG/2 ML AMPUL NEB SCH (08:16)
[2020-03-09] MEDS: LEVALBUTEROL HCL NEB 1.25 MG/3 ML AMPUL NEB SCH ×2 (08:16→13:24)
[2020-03-09] MEDS: IPRATROPIUM BROMIDE 0.02% NEB 0.5 MG/2.5 ML AMPUL NEB SCH ×2 (08:16→13:24)
[2020-03-09] MEDS: ACETYLCYSTEINE 20% SOLN 800 MG/4 ML VIAL.NEB NEB SCH (08:16)
[2020-03-09] MEDS: CHOLECALCIFEROL (D3) 1,000 UNIT (25 MCG) TABLET PO SCH (10:03)
[2020-03-09] MEDS: LEVOFLOXACIN 750 MG TABLET PO SCH (10:04)
[2020-03-09] MEDS: HYDROCHLOROTHIAZIDE 25 MG TABLET PO SCH (10:04)
[2020-03-09] MEDS: DILTIAZEM HCL 120 MG CAP.SR.24H PO SCH (10:04)
[2020-03-09] MEDS: DOCUSATE SODIUM 100 MG CAPSULE PO SCH ×2 (10:05→17:40)
[2020-03-09] MEDS: LOSARTAN POTASSIUM 50 MG TABLET PO SCH (10:05)
[2020-03-09] MEDS: FAMOTIDINE 20 MG TABLET PO SCH (10:05)
--- NOTE | 2020-03-09 17:10 | PDOC DISCHARGE SUMMARY ---
Impression - Admit/DC Date/PCP Admission Date/Primary Care Provider: 03/06/20 20:04 Discharge Date: 03/09/20 - Discharge Diagnosis (1) Acute and chronic respiratory failure with hypoxia Is this a current diagnosis for this admission?: Yes (2) COPD exacerbation Is this a current diagnosis for this admission?: Yes (3) Diabetes mellitus type 2 in obese Is this a current diagnosis for this admission?: Yes (4) Hypertension Is this a current diagnosis for this admission?: Yes (5) Morbid obesity Is this a current diagnosis for this admission?: Yes (6) Abnormal vaginal bleeding in postmenopausal patient Is this a current diagnosis for this admission?: Yes (7) Anemia Is this a current diagnosis for this admission?: Yes (8) Congestive heart failure Is this a current diagnosis for this admission?: Yes (9) Hyperkalemia Is this a current diagnosis for this admission?: Yes - Additional Information Resuscitation Status: Full Code Discharge Diet: Cardiac, Diabetic, Other (Comments) Discharge Activity: Activity As Tolerated, Balance Activity w/Rest Referrals: FLORENCE SHORT MD [COMMUNITY BASED STAFF] - 03/17/20 9:30 am Prescriptions: Prednisone [Deltasone 20 mg Tablet] 40 mg PO DAILY 2 Days #4 tablet Tiotropium Br/Olodaterol HCl [Stiolto Respimat Inhal [place]] 4 gm IH DAILY 30 Days #1 mist.inhal Home Medications: Albuterol Sulfate [Proair HFA Inhalation Aerosol 8.5 gm MDI] 2 puff IH Q4HP PRN 03/07/20 Cholecalciferol (Vitamin D3) [Vitamin D3] 2 tab PO DAILY 03/07/20 Diltiazem HCl [Diltiazem 24Hr ER] 120 mg PO DAILY 03/07/20 Hydrochlorothiazide [Hydrodiuril 25 mg Tablet] 25 mg PO DAILY 03/07/20 Insulin Glargine,Hum.rec.anlog [Lantus (Pyxis) Insulin 100 Unit/1 ml 10 ml] 100 unit SQ QHS 03/07/20 Insulin Lispro [Humalog Insulin (Lispro) 100 unit/mL] 60 unit SQ AC 03/07/20 Irbesartan 300 mg PO DAILY 03/07/20 Prednisone [Deltasone 20 mg Tablet] 40 mg PO DAILY 2 Days #4 tablet 03/09/20 Tiotropium Br/Olodaterol HCl [Stiolto Respimat Inhal [place]] 4 gm IH DAILY 30 Days #1 mist.inhal 03/09/20 History of Present Illiness History of Present Illness: As per admitting physician BIANCA SERVIN is a 74 year old female who presented to the emergency room with a 1 month history of dyspnea. She admits progressively worsening dyspnea at rest over the last 1 month with accompanying progressively severe dyspnea on exertion over the last 2 weeks becoming so severe today (unable to perform activities of daily living) that she felt it necessary to come the emergency room. Her dyspnea has been associated with an intermittent nonproductive cough. She denies other associated or accompanying signs and symptoms. She admits prior similar episodes secondary to her COPD and CHF. She admits that this episode is very much like her usual exacerbations of COPD. She denies identification of any additional aggravating or ameliorating factors for her dyspnea. In the emergency room she was found to have severe hypoxia on exertion even with continuous supplemental oxygen. She was subsequently admitted to the hospital for further evaluation and treatment. Hospital Course Hospital Course: (1) Acute and chronic respiratory failure with hypoxia Moderate improvement. Back to baseline. Likely combination of acute COPD exacerbation complicated by underlying CHF. History of COPD on home O2 3 L/min. Started on BiPAP, duo nebs, LABA, LABA, ICS, flutter valve, incentive spirometry, IV steroids empiric antibiotics. Discharged on 2 more days of p.o. prednisone, LABA, LABA. Patient was asked to follow-up with assistant professor of sociology Dr. Dong. (2) COPD exacerbation Former smoker. History of COPD on 3 L oxygen nasal cannula. Plan as per #1. (3) Diabetes mellitus type 2 in obese Hemoglobin A1c 7%. Sees pest control pilot as outpatient is on Lantus and Humalog. Started on diabetic diet, sliding scale insulin, pre-meal insulin, basal insulin, Accu-Chek, hypoglycemia protocol. (4) Hypertension Controlled. Restarted on home meds. Adjust meds as needed. Outpatient PCP follow-up. (5) Morbid obesity BMI 50.9. TSH WNL. Diet and lifestyle modification recommended. (6) Abnormal vaginal bleeding in postmenopausal patient Patient gives history of vaginal bleeding for the last several months. UA positive for hematuria which most likely is due to vaginal bleeding. Patient's PCP is aware and patient has been referred to JUNIOR QA ANALYST and has had a biopsy of her uterus. Pending results. Outpatient PCP and JUNIOR QA ANALYST follow-up. Patient was asked to follow-up with PCP and her JUNIOR QA ANALYST. Patient voiced understanding. (7) Anemia Most likely due to vaginal bleed. Monitor H&H. Supportive transfusions. Denies any nosebleeds, hematemesis, hemoptysis, melena or hematochezia. Endorses history of vaginal bleeding. Plan as per above. (8) Congestive heart failure History of systolic heart failure. Presented with acute CHF exacerbation. No echo available. Vehicle Technician Dr. Vallejo whom she saw recently. Denies any anginal symptoms. proBNP 2790. No baseline available. Troponin mildly elevated. Likely demand mismatch. EKG no acute changes. Cardiac diet. Fluid restriction. Resume home meds. (9) Hyperkalemia Resolved. No acute EKG changes. Was started on hyperkalemia protocol. Physical Exam Vital Signs: Temp Pulse Resp BP Pulse Ox 98.4 F 87 16 131/59 H 93 03/09/20 10:54 03/09/20 13:24 03/09/20 13:24 03/09/20 10:54 03/09/20 13:24 Intake & Output 03/08/20 03/09/20 03/10/20 06:59 06:59 06:59 Intake Total 670 756 260 Output Total 2 1900 950 Balance 653 -2258 -913 Weight 118.3 kg 118.3 kg 118.3 kg General appearance: PRESENT: no acute distress, morbidly obese, well-developed, well-nourished Head exam: PRESENT: atraumatic, normocephalic Respiratory exam: PRESENT: clear to auscultation ute. ABSENT: rales, rhonchi, wheezes Cardiovascular exam: PRESENT: RRR. ABSENT: diastolic murmur, rubs, systolic murmur GI/Abdominal exam: PRESENT: normal bowel sounds, soft. ABSENT: distended, guarding, mass, organolmegaly, rebound, tenderness Neurological exam: PRESENT: alert, awake, oriented to person, oriented to place, oriented to time, oriented to situation, CN II-XII grossly intact. ABSENT: motor sensory deficit Results Laboratory Results: WBC 8.4 10^3/uL (4.0-10.5) 03/09/20 07:39 RBC 4.15 10^6/uL (3.72-5.28) 03/09/20 07:39 Hgb 11.4 g/dL (12.0-15.5) L 03/09/20 07:39 Hct 35.9 % (36.0-47.0) L 03/09/20 07:39 MCV 87 fl (80-97) 03/09/20 07:39 MCH 27.4 pg (27.0-33.4) 03/09/20 07:39 MCHC 31.7 g/dL (32.0-36.0) L 03/09/20 07:39 RDW 14.7 % (11.5-14.0) H 03/09/20 07:39 Plt Count 342 10^3/uL (150-450) 03/09/20 07:39 Lymph % (Auto) 8.3 % (13-45) L 03/06/20 13:25 [place] % (Auto) 6.0 % (3-13) 03/06/20 13:25 Eos % (Auto) 1.7 % (0-6) 03/06/20 13:25 Baso % (Auto) 0.5 % (0-2) 03/06/20 13:25 Reticulocyte # 0.062 10^6/uL (0.028-0.122) 03/07/20 06:21 Absolute Neuts (auto) 7.2 10^3/uL (1.7-8.2) 03/06/20 13:25 Absolute Lymphs (auto) 0.7 10^3/uL (0.5-4.7) 03/06/20 13:25 Absolute Monos (auto) 0.5 10^3/uL (0.1-1.4) 03/06/20 13:25 Absolute Eos (auto) 0.1 10^3/uL (0.0-0.6) 03/06/20 13:25 Absolute Basos (auto) 0.0 10^3/uL (0.0-0.2) 03/06/20 13:25 Seg Neutrophils % 83.5 % (42-78) H 03/06/20 13:25 Platelet Estimate Cancelled 03/09/20 06:06 Retic Count (auto) 1.56 % (0.66-2.85) 03/07/20 06:21 VBG pH 7.31 (7.30-7.42) 03/07/20 06:21 VBG pCO2 64.1 mmHg (35-63) H 03/07/20 06:21 VBG HCO3 31.4 mmol/L (20-32) 03/07/20 06:21 VBG Base Excess 3.7 mmol/L 03/07/20 06:21 Sodium 140.5 mmol/L (137-145) 03/09/20 06:06 Potassium 4.9 mmol/L (3.6-5.0) 03/09/20 06:06 Chloride 100 mmol/L (98-107) 03/09/20 06:06 Carbon Dioxide 35 mmol/L (22-30) H 03/09/20 06:06 Anion Gap 6 (5-19) 03/09/20 06:06 BUN 58 mg/dL (7-20) H 03/09/20 06:06 Creatinine 0.93 mg/dL (0.52-1.25) 03/09/20 06:06 Est GFR ( Amer) > 60 (>60) 03/09/20 06:06 Est GFR (MDRD) Non-Af 59 (>60) L 03/09/20 06:06 Glucose 137 mg/dL (75-110) H 03/09/20 06:06 POC Glucose 181 mg/dL (70-110) H 03/09/20 15:53 Hemoglobin A1c % 7.0 % (4.7-6.0) H 03/07/20 06:21 Calcium 9.8 mg/dL (8.4-10.2) 03/09/20 06:06 Magnesium 2.0 mg/dL (1.6-2.3) 03/09/20 06:06 Iron 70.1 ug/dL (37-170) 03/07/20 06:21 TIBC 318 ug/dL (250-450) 03/07/20 06:21 % Saturation 22 % 03/07/20 06:21 Transferrin 251.67 mg/dL (206.00-381.00) 03/07/20 06:21 Ferritin 69.90 ng/mL (11.1-264.0) 03/07/20 06:21 Total Bilirubin 0.4 mg/dL (0.2-1.3) 03/06/20 13:25 Direct Bilirubin 0.1 mg/dL (0.0-0.4) 03/06/20 13:25 Neonat Total Bilirubin Not Reportable 03/06/20 13:25 Neonat Direct Bilirubin Not Reportable 03/06/20 13:25 Neonat Indirect Bili Not Reportable 03/06/20 13:25 AST 22 U/L (14-36) 03/06/20 13:25 ALT 22 U/L (<35) 03/06/20 13:25 Alkaline Phosphatase 91 U/L (38-126) 03/06/20 13:25 Creatine Kinase 96 U/L (30-135) 03/06/20 13:25 CK-MB (CK-2) 3.13 ng/mL (<4.55) 03/06/20 13:25 Troponin I 0.087 ng/mL 03/06/20 18:49 NT-Pro-B Natriuret Pep 2760 pg/mL (<125) H 03/06/20 13:25 Total Protein 7.0 g/dL (6.3-8.2) 03/06/20 13:25 Albumin 3.6 g/dL (3.5-5.0) 03/06/20 13:25 Triglycerides 142 mg/dL (<150) 03/07/20 06:21 Cholesterol 247.37 mg/dL (0-200) H 03/07/20 06:21 LDL Cholesterol Direct 156 mg/dL (<100) H 03/07/20 06:21 VLDL Cholesterol 28.0 mg/dL (10-31) 03/07/20 06:21 HDL Cholesterol 72 mg/dL (>40) 03/07/20 06:21 Vitamin B12 442.0 pg/mL (239-931) 03/07/20 06:21 Folate 12.80 ng/mL (>2.76) 03/07/20 06:21 TSH 0.85 uIU/mL (0.47-4.68) 03/07/20 06:21 Free T3 pg/mL 2.88 pg/mL (2.77-5.27) 03/06/20 13:25 Urine Color YELLOW 03/07/20 04:02 Urine Appearance SLIGHTLY-CLOUDY 03/07/20 04:02 Urine pH 5.0 (5.0-9.0) 03/07/20 04:02 Ur Specific [place] 1.014 03/07/20 04:02 Urine Protein >=500 mg/dL (NEGATIVE) H 03/07/20 04:02 Urine Glucose (UA) >=500 mg/dL (NEGATIVE) H 03/07/20 04:02 Urine Ketones TRACE mg/dL (NEGATIVE) H 03/07/20 04:02 Urine Blood MODERATE (NEGATIVE) H 03/07/20 04:02 Urine Nitrite NEGATIVE (NEGATIVE) 03/06/20 16:05 Urine Nitrite (Reflex) NEGATIVE (NEGATIVE) 03/07/20 04:02 Urine Bilirubin NEGATIVE (NEGATIVE) 03/07/20 04:02 Urine Urobilinogen NEGATIVE mg/dL (<2.0) 03/07/20 04:02 Ur Leukocyte Esterase SMALL (NEGATIVE) H 03/06/20 16:05 Leukocyte Esterase Rfl NEGATIVE (NEGATIVE) 03/07/20 04:02 Urine WBC (Auto) 104 /HPF 03/06/20 16:05 Urine RBC (Auto) 28 /HPF 03/07/20 04:02 U Hyaline Cast (Auto) 4 /LPF 03/06/20 16:05 Urine Bacteria (Auto) 3+ /HPF 03/06/20 16:05 Urine WBC (Reflex) 12 /HPF 03/07/20 04:02 Urine WBC Clumps FEW /HPF 03/06/20 16:05 Squamous Epi Cells Auto 1 /HPF 03/07/20 04:02 Urine Mucus (Auto) RARE /LPF 03/06/20 16:05 Urine Ascorbic Acid NEGATIVE (NEGATIVE) 03/07/20 04:02 Slides for Path Review Cancelled 03/09/20 06:06 03/06/20 03/06/20 13:25 18:49 CK-MB (CK-2) 3.13 Troponin I 0.091 0.087 NT-Pro-B Natriuret Pep 2760 H Impressions: Chest X-Ray 03/06/20 13:34 IMPRESSION: Asymmetric opacities in the inferior aspect of the right hemithorax. Clinical correlation to exclude a pneumonia is recommend. Plan Time Spent: Greater than 30 Minutes Stroke Is this a Stroke Patient?: No Acute Heart Failure - Is this a Heart Failure Patient?: No
[2020-03-09 18:55] VITALS: BP 132/53
== END 2020-03-09 20:23 | disposition home or self-care (01) | DRG 291 ==
LOC: ER 13:03 → EH 20:04 → 4S 03-07 00:10
PROVIDERS: ADMIT Emergency Medicine; ATTEND Internal Medicine
DX: I11.0 Hypertensive heart disease with heart failure (principal); J96.21 Acute and chronic respiratory failure with hypoxia; J44.1 Chronic obstructive pulmonary disease with (acute) exacerbation; Z68.43 Body mass index [BMI] 50.0-59.9, adult; I50.23 Acute on chronic systolic (congestive) heart failure; E11.9 Type 2 diabetes mellitus without complications; D64.9 Anemia, unspecified; I48.91 Unspecified atrial fibrillation; E87.5 Hyperkalemia; K21.9 Gastro-esophageal reflux disease without esophagitis; N95.0 Postmenopausal bleeding; E66.01 Morbid (severe) obesity due to excess calories; Z79.4 Long term (current) use of insulin; Z79.51 Long term (current) use of inhaled steroids; Z79.899 Other long term (current) drug therapy; Z99.81 Dependence on supplemental oxygen
CPT/HCPCS: 36415; 71045; 80048; 80053; 80061; 81001; 82550; 82553; 82607; 82728; 82746; 82803; 82962; 83036; 83540; 83550; 83735; 83880; 84443; 84466; 84481; 84484; 85025; 85027; 85045; 87086; 87088; 87186; 93005; 93010; 94640; 94660; 94668; 96365; 96375; 99285; J0696; J1644; J1815; J2920; J2930; J3490; J7614; J7620

== ENCOUNTER 2020-07-23 14:01 | Inpatient (IN) | payer MEDICARE ==
[2020-07-23] MEDS ORDERED: IPRATROPIUM/ALBUTEROL 0.5-2.5 MG/3 ML AMPUL NEB ONE (14:50)
[2020-07-23 15:00] LABS: HEMATOCRIT 34.7 % (36.0-47.0); HEMOGLOBIN 10.9 g/dL (12.0-15.5); MEAN CORPUSCULAR HEMOGLOBIN 27.8 pg (27.0-33.4); MEAN CORPUSCULAR HGB CONC 31.5 g/dL (32.0-36.0); MEAN CORPUSCULAR VOLUME 88 fl (80-97); PLATELET COUNT 263 10^3/uL (150-450); RED BLOOD COUNT 3.94 10^6/uL (3.72-5.28); RED CELL DISTRIBUTION WIDTH 14.7 % (11.5-14.0); WHITE BLOOD COUNT 7.8 10^3/uL (4.0-10.5)
[2020-07-23 15:23] LABS: ALBUMIN 3.8 g/dL (3.5-5.0); ALKALINE PHOSPHATASE 100 U/L (38-126); ASPARTATE AMINO TRANSFERASE 21 U/L (14-36); BILIRUBIN,DIRECT 0.3 mg/dL (0.0-0.4); BILIRUBIN,TOTAL 0.7 mg/dL (0.2-1.3); BLOOD UREA NITROGEN 37 mg/dL (7-20); CALCIUM 9.5 mg/dL (8.4-10.2); CHLORIDE 91 mmol/L (98-107); GLUCOSE 193 mg/dL (75-110); TOTAL PROTEIN 7.1 g/dL (6.3-8.2)
--- NOTE | 2020-07-23 15:31 | ER Document Report ---
ED General - General Chief Complaint: Shortness Of Breath Stated Complaint: DIFFICULTY BREATHING Time Seen by Provider: 07/23/20 15:07 TRAVEL OUTSIDE OF THE [place] IN LAST 30 DAYS: No - HPI Notes: Patient is a 74-year-old female who presents to the emergency department for evaluation of increased shortness of breath. She has a history of COPD, CHF, oxygen dependent on 3 to 4 L per nasal cannula at home. She states has had a cough over the last several weeks. She cannot seem to make this cough produc tive. She tried some Mucinex today. No fevers. She states he became more acutely short of breath over the last several hours. Patient also states she has developed what she describes as "twitch." She states that she attributed this to the fact that she was on too much insulin, so she stopped taking all of it. She cannot tell me when she stopped taking it. She states he has been taking her other medications. She does not discuss any of these decisions with her primary care provider or her supervisor filtration. - Related Data Allergies/Adverse Reactions: peach Allergy (Verified 07/23/20 14:11) Mfyzxif-Yyj-Ymq Reductase Inhibitor Allergy (Verified 07/23/20 14:11) Past Medical History - General Information source: Patient - Social History Smoking Status: Former Smoker Frequency of alcohol use: None Drug Abuse: None Family History: Hypertension. denies: CAD, DM, Malignancy - Past Medical History Cardiac Medical History: Reports: Hx Atrial Fibrillation, Hx Congestive Heart Failure, Hx Hypertension Denies: Hx Coronary Artery Disease, Hx Heart Attack, Hx Hypercholesterolemia Pulmonary Medical History: Reports: Hx Asthma - As a child, Hx Bronchitis, Hx COPD, Hx Pneumonia, Hx Respiratory Failure - Chronic hypoxic respiratory failure on supplemental oxygen @ home Denies: Hx Sleep Apnea Neurological Medical History: Denies: Hx Seizures Endocrine Medical History: Reports: Hx Diabetes Mellitus Type 2. Denies: Hx Diabetes Mellitus Type 1, Hx Hyperthyroidism, Hx Hypothyroidism GI Medical History: Reports: Hx Gastroesophageal Reflux Disease. Denies: Hx Cirrhosis, Hx Crohn's Disease, Hx Hepatitis, Hx Ulcerative Colitis Musculoskeletal Medical History: Denies Hx Arthritis, Denies Hx Gout Skin Medical History: Denies Hx Eczema, Denies Hx Psoriasis Psychiatric Medical History: Denies: Hx Depression Infectious Medical History: Denies: Hx Hepatitis Past Surgical History: Reports: Hx Orthopedic Surgery - Bilateral carpal tunnel, Hx Tonsillectomy, Hx Tubal Ligation, Other - Bilateral cataracts with lens replacements - Immunizations Immunizations up to date: Yes Review of Systems - Review of Systems Constitutional: Weakness EENT: No symptoms reported Cardiovascular: No symptoms reported Respiratory: See HPI Gastrointestinal: No symptoms reported Genitourinary: No symptoms reported Musculoskeletal: No symptoms reported Skin: No symptoms reported Neurological/Psychological: See HPI -: Yes All other systems reviewed and negative Physical Exam - Vital signs Vitals: Resp Pulse Ox 30 H 100 07/23/20 14:19 07/23/20 14:19 - Notes Notes: This is a 74-year-old female who appears her stated age, in a moderate amount of distress. My initially see the patient, she already has BiPAP in place. She is laying back. Her eyes are open, she follows commands, GCS 15. She is of poor hygiene. Vital signs reviewed, please refer to chart. Head is normocephalic, atraumatic. Pupils equal round, reactive to light. Neck is supple without m eningismus. Heart is regular rate and rhythm. Lungs reveal diminished breath sounds at the bases and occasional rales. Abdomen is soft, nontender, normoactive bowel sounds throughout. Extremities without cyanosis, clubbing. 2+ pretibial pitting edema in the left lower extremity, trace pitting edema on the right, both chronic per patient. Posterior calves are nontender. Peripheral pulses are equal. Skin is warm and dry. Patient is awake, alert, neurological exam is nonfocal. Course - Re-evaluation Re-evalutation: 07/23/20 15:31 Patient presents emergency department for evaluation. Laboratory investigations, imaging, BiPAP were as ordered. I did additionally add an ABG, troponin, proBNP. The patient already states she is feeling improved after placement of BiPAP. It was reported to me by nursing that she did have a minor mental status change, but for me she was awake and alert, oriented x3. Awaiting laboratory investigations and images, patient is currently stable. 07/23/20 17:29 It took some time to obtain an ABG here in the department. The patient is significantly acidotic with a PCO2 of over 120, despite being on BiPAP for over 2 hours. Patient's mental status has worsened. She does not remember conversation she had with me earlier. I am concerned that she could become more acidotic with more retention, and I am concerned that this could lead to significant cardiac consequences. Decision was made to intubate the patient. I discussed this with the patient early in the course of her stay, I did reiterate this discussion later. Plans are being made at this time to perform intubation. I will premedicate with etomidate and rocuronium, as the patient does have a significant hyperkalemia. Respiratory has been called. Please see procedure note. 07/23/20 17:[address]ub[address] without incident. Dr. Dickey came to the room post intubation. He requested propofol for sedation, this has been ordered by this physician. Otherwise, leaving vent orders and further patient care management to the food writer. - Vital Signs Vital signs: Temp Pulse Resp BP Pulse Ox 98.0 F 93 22 H 139/54 H 93 07/23/20 16:05 07/23/20 14:25 07/23/20 16:02 07/23/20 16:02 07/23/20 16:02 - Laboratory Result Diagrams: 07/23/20 14:38 07/23/20 14:38 Laboratory results interpreted by me: 07/23/20 07/23/20 07/23/20 14:34 14:38 14:38 Hgb 10.9 L Hct 34.7 L MCHC 31.5 L RDW 14.7 H Seg Neuts % (Manual) 93 H Lymphocytes % (Manual) 4 L Abs Lymphs (Manual) 0.3 L Carbonic Acid ABG pH ABG pCO2 ABG pO2 ABG HCO3 ABG Total CO2 ABG O2 Saturation Potassium 6.1 H* Chloride 91 L Carbon Dioxide 41 H* BUN 37 H Est GFR (MDRD) Non-Af 50 L Glucose 193 H POC Glucose 208 H NT-Pro-B Natriuret Pep 07/23/20 07/23/20 14:38 16:54 Hgb Hct MCHC RDW Seg Neuts % (Manual) Lymphocytes % (Manual) Abs Lymphs (Manual) Carbonic Acid 3.97 H ABG pH 7.19 L* ABG pCO2 131.8 H* ABG pO2 79.1 L ABG HCO3 48.6 H ABG Total CO2 52.7 H ABG O2 Saturation 90.8 L Potassium Chloride Carbon Dioxide BUN Est GFR (MDRD) Non-Af Glucose POC Glucose NT-Pro-B Natriuret Pep 5520 H - Diagnostic Test Radiology reviewed: Image reviewed, Reports reviewed Radiology results interpreted by me: 07/23/20 17:51 Chest X-Ray 07/23/20 14:08 IMPRESSION: Limited examination demonstrating a right-sided pleural effusion wi th compressive atelectasis versus consolidation of the right lower lobe. Given lack of overt central vascular congestion, favor infectious etiology. - EKG Interpretation by Me Additional EKG results interpreted by me: 07/23/20 15:32 Sinus mechanism with a rate of 95 bpm. Normal axis and intervals. No acute ST changes concerning for ischemia or infarction. Procedures - Intubation Orotracheal Airway evaluation: Abnormal 3-3-2 rule, Large tongue, Neck immobility, Obese Mallampati Classification: Class 3 Medications: Etomidate, Succinylcholine Intubation method: Orotracheal Blade size: 3 Equipment used: Glidescope ETT size: 7.5 Breath Sounds after Intubation: Equal End tidal CO2 confirmed: Yes Discharge - Discharge Clinical Impression: Hyperkalemia Congestive heart failure Qualifiers: Heart failure chronicity: acute on chronic Acute and chronic respiratory failure ([id number]) Qualifiers: Respiratory failure complication: hypercapnia Qualified Code(s): J96.22 - Acute and chronic respiratory failure with hypercapnia Pneumonia Qualifiers: Pneumonia type: due to unspecified organism Laterality: right Lung location: lower lobe of lung Qualified Code(s): J18.9 - Pneumonia, unspecified organism Condition: Stable Disposition: ADMITTED INPATIENT Admitting Provider: Noble (Climbing Guide) Unit Admitted: ICU
[2020-07-23 15:36] LABS: ANION GAP 6 (5-19); CARBON DIOXIDE 41 mmol/L (22-30)
--- NOTE | 2020-07-23 15:36 | RADIOLOGY REPORT (SQ) ---
EXAM DESCRIPTION: CHEST SINGLE VIEW IMAGES COMPLETED DATE/TIME: 07/23/2020 3:18 pm REASON FOR STUDY: bed 12 sepsis protocol COMPARISON: 03/06/2020 EXAM PARAMETERS: NUMBER OF VIEWS: One view. TECHNIQUE: Single frontal radiographic view of the chest acquired. RADIATION DOSE: NA LIMITATIONS: Suboptimal patient positioning. FINDINGS: LUNGS AND PLEURA: Right-sided pleural effusion with compressive atelectasis. No pneumotho rax. MEDIASTINUM AND HILAR STRUCTURES: Grossly normal. HEART AND VASCULAR STRUCTURES: Grossly stable cardiomegaly. No discrete central vascular congestion. BONES: No acute findings. HARDWARE: None in the chest. OTHER: No other significant finding. IMPRESSION: Limited examination demonstrating a right-sided pleural effusion with compressive atelec tasis versus consolidation of the right lower lobe. Given lack of overt central vascular congestion, favor infectious etiology. TECHNICAL DOCUMENTATION: JOB ID: [id number] 2010 [employer]- All Rights Reserved Reading location - IP/workstation name: [email or web address]
[2020-07-23 15:37] LABS: POTASSIUM 6.1 mmol/L (3.6-5.0)
[2020-07-23 15:39] LABS: ABSOLUTE LYMPHOCYTES# (MANUAL) 0.3 10^3/uL (0.5-4.7); ABSOLUTE MONOCYTES # (MANUAL) 0.2 10^3/uL (0.1-1.4); BASOPHILS % (MANUAL) 0 % (0-2); EOSINOPHILS % (MANUAL) 0 % (0-6); LYMPHOCYTES % (MANUAL) 4 % (13-45); MONOCYTES % (MANUAL) 3 % (3-13); SEGMENTED NEUTROPHILS % (MAN) 93 % (42-78); TOTAL CELLS COUNTED 100
[2020-07-23 15:41] LABS: ANISOCYTOSIS SLIGHT; PLATELET COMMENT ADEQUATE; PLATELET LARGE PRESENT
[2020-07-23 15:59] LABS: TROPONIN I 0.043 ng/mL
[2020-07-23] MEDS ORDERED: INSULIN REG, HUMAN 100 UNIT/ML 3 ML VIAL (PYX) IV ONE (16:40)
[2020-07-23] MEDS ORDERED: FUROSEMIDE INJ/PF 40 MG/4 ML SDV IV ONE (16:41)
[2020-07-23] MEDS ORDERED: DEXTROSE 50%-WATER 25 GM/50 ML DISP.SYRIN IV ONE (16:41)
[2020-07-23] MEDS ORDERED: CEFTRIAXONE 1 GM/D5W RTU 1 GM/50 ML RTUPB IV ONE (16:41)
[2020-07-23] MEDS ORDERED: AZITHROMYCIN INJ 500 MG VIAL IV ONE (16:42)
[2020-07-23 17:13] LABS: ARTERIAL BLOOD BASE EXCESS 15.7 mmol/L; ARTERIAL BLOOD H2CO3 3.97 mmol/L (1.05-1.35); ARTERIAL BLOOD HCO3 48.6 mmol/L (20-24); ARTERIAL BLOOD O2 SATURATION 90.8 % (94-98); ARTERIAL BLOOD PO2 79.1 mmHg (80-100); ARTERIAL BLOOD TOTAL CO2 52.7 mmol/L (21-25)
[2020-07-23 17:14] LABS: ARTERIAL BLOOD FIO2 50%
[2020-07-23 17:21] LABS: ARTERIAL BLOOD PCO2 131.8 mmHg (35-45); ARTERIAL BLOOD PH 7.19 (7.35-7.45)
[2020-07-23] MEDS ORDERED: ETOMIDATE INJ/PF 20 MG/10 ML SDV IV ONE (17:31)
[2020-07-23] MEDS ORDERED: PROPOFOL 1,000 MG/100 ML INFUS..BTL IV PRN (17:48)
[2020-07-23] MEDS ORDERED: ALBUTEROL SULFATE 0.083% NEB 2.5 MG/3 ML AMPUL NEB PRN (17:59)
[2020-07-23] MEDS: PROPOFOL 1,000 MG/100 ML INFUS..BTL IV PRN ×4 (18:05→23:18)
--- NOTE | 2020-07-23 18:11 | EKG REPORT ---
SEVERITY:- NORMAL ECG - SINUS RHYTHM : Confirmed by: Ney Olivares MD 23-Jul-2020 18:10:06
--- NOTE | 2020-07-23 18:38 | RADIOLOGY REPORT (SQ) ---
EXAM DESCRIPTION: CHEST SINGLE VIEW IMAGES COMPLETED DATE/TIME: 07/23/2020 6:25 pm REASON FOR STUDY: ETT placement COMPARISON: 07/23/2020 EXAM PARAMETERS: NUMBER OF VIEWS: One view. TECHNIQUE: Single frontal radiographic view of the chest acquired. RADIATION DOSE: NA LIMITATIONS: None. FINDINGS: LUNGS AND PLEURA: There appears to be right pleural effusion. Associated atelectasis is s uggested. MEDIASTINUM AND HILAR STRUCTURES: No masses. Contour normal. HEART AND VASCULAR STRUCTURES: Cardiomegaly. No lakisha pulmonary edema. BONES: No acute findings. HARDWARE: Endotracheal tube has its tip 5 cm above the coco. An NG tube extends down to the stomac h. OTHER: No other significant finding. IMPRESSION: Endotracheal tube and NG tube as described. Right pleural effusion with associated atel ectasis. Cardiomegaly without lakisha pulmonary edema. TECHNICAL DOCUMENTATION: JOB ID: [id number] 2010 [employer]- All Rights Reserved Reading location - IP/workstation name: [email or web address]
[2020-07-23] MEDS ORDERED: ROCURONIUM BROMIDE INJ 50 MG/5 ML VIAL IV ONE (18:41)
[2020-07-23] MEDS ORDERED: DEXTROSE 40% GEL 15 GM TUBE PO PRN ×2 (18:45)
[2020-07-23] MEDS ORDERED: GLUCAGON,HUMAN RECOMB 1 MG INJ IM PRN (18:45)
[2020-07-23] MEDS ORDERED: PHARMACY COMMUNICATION ORDER MC NR (18:45)
[2020-07-23] MEDS ORDERED: DEXTROSE 50%-WATER 25 GM/50 ML DISP.SYRIN IV PRN ×2 (18:45)
[2020-07-23] MEDS ORDERED: INSULIN REG, HUMAN 100 UNIT/ML 3 ML VIAL (PYX) ONE (19:12)
--- NOTE | 2020-07-23 20:47 | RADIOLOGY REPORT (SQ) ---
CT CHEST WITHOUT IV CONTRAST HISTORY: Pleural effusion. COMPARISON: None. TECHNIQUE: CT scan of the chest was performed without IV contrast. This exam was performed according to our departmental dose-optimization program, which includes automated exposure control, adjustment of the mA and/or kV according to patient size and/or use of iterative reconstruction technique. FINDINGS: There is a small right pleural effusion with adjacent atelectasis. No consolidation or pneumothorax is seen. Normal heart size without pericardial effusion. No mediastinal or axillary adenopathy. Limited evaluation for hilar adenopathy without IV contrast. There are mild degenerative changes of the spine. The visualized upper abdomen is grossly unremarkable. IMPRESSION: 1. Small right pleural effusion with adjacent atelectasis. 2. No consolidation or pneumothorax.
[2020-07-23] MEDS: ALBUTEROL SULFATE 0.083% NEB 2.5 MG/3 ML AMPUL NEB SCH (20:49)
[2020-07-23] MEDS: BUDESONIDE NEB 0.25 MG/2 ML AMPUL NEB SCH (20:49)
[2020-07-23] MEDS: METHYLPREDNISOLONE INJ 125 MG/2 ML SDV IV SCH (21:14)
[2020-07-23] MEDS: ENALAPRILAT DIHYDRATE INJ/PF 1.25 MG/1 ML SDV IV SCH (21:36)
[2020-07-23] MEDS: PANTOPRAZOLE SODIUM 40 MG VIAL IV SCH (21:36)
[2020-07-23] MEDS: HEPARIN SOD (PORCINE) 5,000 UNIT/ML 1 ML VIAL SUBCUT SCH (21:37)
[2020-07-23] MEDS: CEFTRIAXONE 1 GM/D5W RTU 1 GM/50 ML RTUPB IV SCH (21:39)
[2020-07-23] MEDS ORDERED: FENTANYL CITRATE INJ/PF 100 MCG/2 ML AMPUL IV ONE ×2 (22:00→23:40)
[2020-07-23] MEDS: AZITHROMYCIN 500 MG in DEXTROSE 5%-WATER 250 ML IV SCH (22:03)
[2020-07-23 22:15] LABS: ARTERIAL BLOOD BASE EXCESS 13.6 mmol/L; ARTERIAL BLOOD H2CO3 1.58 mmol/L (1.05-1.35); ARTERIAL BLOOD HCO3 38.9 mmol/L (20-24); ARTERIAL BLOOD PCO2 52.4 mmHg (35-45); ARTERIAL BLOOD PH 7.49 (7.35-7.45); ARTERIAL BLOOD PO2 56.5 mmHg (80-100); ARTERIAL BLOOD TOTAL CO2 40.6 mmol/L (21-25)
[2020-07-23 23:25] LABS: ABSOLUTE EOSINOPHILS # (AUTO) 0.1 10^3/uL (0.0-0.6); ABSOLUTE LYMPHOCYTES (AUTO) 0.5 10^3/uL (0.5-4.7); ABSOLUTE MONOCYTES (AUTO) 0.7 10^3/uL (0.1-1.4); ABSOLUTE NEUT (AUTO) 6.2 10^3/uL (1.7-8.2); BASOPHILS % (AUTO) 0.4 % (0-2); EOSINOPHILS % (AUTO) 0.9 % (0-6); HEMATOCRIT 30.4 % (36.0-47.0); MEAN CORPUSCULAR HEMOGLOBIN 28.4 pg (27.0-33.4); MEAN CORPUSCULAR HGB CONC 32.9 g/dL (32.0-36.0); MEAN CORPUSCULAR VOLUME 86 fl (80-97); PLATELET COUNT 220 10^3/uL (150-450); RED BLOOD COUNT 3.52 10^6/uL (3.72-5.28); RED CELL DISTRIBUTION WIDTH 14.8 % (11.5-14.0); SEGMENTED NEUTROPHILS % (AUTO) 82.7 % (42-78); TOTAL CELLS COUNTED % (AUTO) 100 %; WHITE BLOOD COUNT 7.5 10^3/uL (4.0-10.5)
[2020-07-23 23:32] LABS: INTERNATIONAL RATION (INR) 0.94; PROTHROMBIN TIME 12.8 SEC (11.4-15.4)
[2020-07-23 23:33] LABS: PARTIAL THROMBOPLASTIN TIME 26.4 SEC (23.5-35.8)
[2020-07-23 23:35] LABS: D-DIMER 1.19 ug/mL (0.00-0.50)
[2020-07-23] MEDS ORDERED: FENTANYL CITRATE INJ/PF 100 MCG/2 ML AMPUL ONE (23:39)
[2020-07-23 23:42] LABS: ARTERIAL BLOOD FIO2 50
[2020-07-23 23:55] LABS: ALKALINE PHOSPHATASE 77 U/L (38-126); ASPARTATE AMINO TRANSFERASE 20 U/L (14-36); BILIRUBIN,DIRECT 0.3 mg/dL (0.0-0.4); BILIRUBIN,TOTAL 0.7 mg/dL (0.2-1.3); BLOOD UREA NITROGEN 46 mg/dL (7-20); CALCIUM 9.2 mg/dL (8.4-10.2); GLUCOSE 221 mg/dL (75-110); TOTAL PROTEIN 5.9 g/dL (6.3-8.2)
[2020-07-23 23:58] LABS: C-REACTIVE PROTEIN 20.7 mg/L (<10.0)
[2020-07-24] LABS: CHLORIDE 90 mmol/L (98-107)
[2020-07-24 00:03] LABS: ANION GAP 5 (5-19); CARBON DIOXIDE 39 mmol/L (22-30)
[2020-07-24 00:35] LABS: FERRITIN 68.2 ng/mL (11.1-264.0)
[2020-07-24] MEDS: METHYLPREDNISOLONE INJ 125 MG/2 ML SDV IV SCH ×4 (01:19→18:07)
[2020-07-24] MEDS: INSULIN LISPRO 100 UNIT/ML 3 ML VIAL SUBCUT SCH ×4 (01:19→18:07)
[2020-07-24] MEDS: ENALAPRILAT DIHYDRATE INJ/PF 1.25 MG/1 ML SDV IV SCH ×4 (01:22→18:07)
[2020-07-24] MEDS ORDERED: FUROSEMIDE INJ/PF 20 MG/2 ML SDV IV ONE (01:34)
[2020-07-24] MEDS: PROPOFOL 1,000 MG/100 ML INFUS..BTL IV PRN ×7 (01:34→23:50)
--- NOTE | 2020-07-24 02:19 | CRITICAL CARE ADMISSION REPORT ---
HPI Date:: 07/23/20 Time:: 21:00 Reason for ICU Reason:: acute on chronic hypercarbic Respiratory Failure , intubated Admission Date/Time & PCP: Admission Date/Time: 07/23/20 18:20 Primary Care Provider: HPI: This 74-year-old obese female presented to [facility] emergency department with complaints of increased shortness of breath earlier today. She reported having a nonproductive cough over the last several weeks. No fevers. She became acutely short of breath earlier today and presented to the emergency department. At the time of clinical encounter, the patient has been intubated in the emergency department after failing to improve clinically despite 2 hours of BiPAP support. - Diagnosis/Plan (2) Congestive heart failure Qualifiers: Heart failure chronicity: acute on chronic Qualified Code(s): I50.20 - Unspecified systolic (congestive) heart failure Is this a current diagnosis for this admission?: Yes Plan: Furosemide IV PRN (3) Hyperkalemia Is this a current diagnosis for this admission?: Yes Plan: Treat acid-base imbalance. Furosemide IV PRN. Monitor BMP. Monitor EKG. (4) Pleural effusion, right Is this a current diagnosis for this admission?: Yes Plan: Chest CT scan; right pleural effusion. On rocephin/Azithro. Furosemide IV. (5) Pneumonia Qualifiers: Pneumonia type: due to unspecified organism Laterality: right Lung location: lower lobe of lung Qualified Code(s): J18.9 - Pneumonia, unspecified organism Is this a current diagnosis for this admission?: Yes Plan: Rocephin/Azithro. MV support. COVID pending (6) COPD exacerbation Is this a current diagnosis for this admission?: Yes Plan: Steroids, Diuresis and Nebs (7) Diabetes mellitus type 2 in obese Is this a current diagnosis for this admission?: Yes Plan: Monitor blood sugar with sliding scale . (8) Hypertension Qualifiers: Hypertension type: essential hypertension Qualified Code(s): I10 - Essential (primary) hypertension Is this a current diagnosis for this admission?: Yes Plan: Monitor hemodynamics with goal < 150 mmhg . (9) Morbid obesity Is this a current diagnosis for this admission?: Yes Plan: Monitor daily weight Past Medical History Cardiac Medical History: Reports: Atrial Fibrillation, Congestive Heart Failure, Hypertension Denies: Coronary Artery Disease, Myocardial Infarction, Hyperlipidema Pulmonary Medical History: Reports: Asthma - As a child, Bronchitis, Chronic Obstructive Pulmonary Disease (COPD), Pneumonia, Respiratory Failure - Chronic hypoxic respiratory failure on supplemental oxygen @ home Denies: Sleep Apnea Neurological Medical History: Denies: Seizures Endocrine Medical History: Reports: Diabetes Mellitus Type 2 Denies: Diabetes Mellitus Type 1, Hyperthyroidism, Hypothyroidism GI Medical History: Reports: Gastroesophageal Reflux Disease Denies: Cirrhosis, Crohn's Disease, Hepatitis, Ulcerative Colitis Musculoskeltal Medical History: Denies: Arthritis, Gout Skin Medical History: Denies: Eczema, Psoriasis Psychiatric Medical History: Denies: Depression Hematology: Denies: Anemia, Bleeding Tendencies Past Surgical History Past Surgical History: Reports: Orthopedic Surgery - Bilateral carpal tunnel, Tonsillectomy, Tubal Ligation, Other - Bilateral cataracts with lens replacements Social/Family History - Social History Smoking Status: Former Smoker Frequency of Alcohol Use: None Hx Recreational Drug Use: No Drugs: None Hx Prescription Drug Abuse: No - Medication/Allergies Home Medications: Albuterol Sulfate [Proair HFA Inhalation Aerosol 8.5 gm MDI] 2 puff IH Q4HP PRN 03/07/20 Cholecalciferol (Vitamin D3) [Vitamin D3] 2 tab PO DAILY 03/07/20 Diltiazem HCl [Diltiazem 24Hr ER] 120 mg PO DAILY 03/07/20 Hydrochlorothiazide [Hydrodiuril 25 mg Tablet] 25 mg PO DAILY 03/07/20 Insulin Glargine,Hum.rec.anlog [Lantus (Pyxis) Insulin 100 Unit/1 ml 10 ml] 100 unit SQ QHS 03/07/20 Insulin Lispro [Humalog Insulin (Lispro) 100 unit/mL] 60 unit SQ AC 03/07/20 Irbesartan 300 mg PO DAILY 03/07/20 Allergies/Adverse Reactions: peach Allergy (Verified 07/23/20 14:11) Ckfliyy-Uvs-Xjh Reductase Inhibitor Allergy (Verified 07/23/20 14:11) Review of Systems ROS unobtainable: Due to endotracheal tube Physical Exam Vital Signs: Temp Pulse Resp BP Pulse Ox 99.7 F 87 19 104/54 L 98 07/23/20 21:55 07/24/20 01:22 07/23/20 21:55 07/24/20 01:22 07/24/20 00:45 Intake & Output 07/22/20 07/23/20 07/24/20 06:59 06:59 06:59 Intake Total 278 Output Total 200 Balance 78 Weight 121.1 kg Weight/Height Weight 121.1 kg Height 4 ft 11 in General appearance: PRESENT: no acute distress, morbidly obese Head exam: PRESENT: normocephalic Eye exam: PRESENT: conjunctiva pink, PERRLA Ear exam: PRESENT: normal external ear exam, TM's normal bilaterally Mouth exam: PRESENT: moist, neck supple, tongue midline Teeth exam: PRESENT: edentulous Respiratory exam: PRESENT: accessory muscle use, decreased breath sounds, prolonged expiratory phas, rales, wheezes Laboratory/Radiographs Laboratory Results: 07/23/20 23:17 07/23/20 23:17 07/23/20 07/23/20 07/23/20 14:38 14:38 15:39 WBC 7.8 RBC 3.94 Hgb 10.9 L Hct 34.7 L MCV 88 MCH 27.8 MCHC 31.5 L RDW 14.7 H Plt Count 263 Seg Neutrophils % Not Reportable Carbonic Acid HCO3/H2CO3 Ratio ABG pH ABG pCO2 ABG pO2 ABG HCO3 ABG O2 Saturation ABG Base Excess FiO2 Sodium 137.8 Potassium 6.1 H* Chloride 91 L Carbon Dioxide 41 H* Anion Gap 6 BUN 37 H Creatinine 1.07 Est GFR ( Amer) > 60 Glucose 193 H Lactic Acid 0.7 Calcium 9.5 Ferritin Total Bilirubin 0.7 AST 21 Alkaline Phosphatase 100 C-Reactive Protein Total Protein 7.1 Albumin 3.8 Triglycerides 07/23/20 07/23/20 07/23/20 16:54 20:57 21:45 WBC RBC Hgb Hct MCV MCH MCHC RDW Plt Count Seg Neutrophils % Carbonic Acid 3.97 H 1.58 H HCO3/H2CO3 Ratio 12:1 24:1 ABG pH 7.19 L* 7.49 H ABG pCO2 131.8 H* 52.4 H ABG pO2 79.1 L 56.5 L ABG HCO3 48.6 H 38.9 H ABG O2 Saturation 90.8 L 91.0 L ABG Base Excess 15.7 13.6 FiO2 50% 50 Sodium Potassium Chloride Carbon Dioxide Anion Gap BUN Creatinine Est GFR ( Amer) Glucose Lactic Acid 1.7 Calcium Ferritin Total Bilirubin AST Alkaline Phosphatase C-Reactive Protein Total Protein Albumin Triglycerides 07/23/20 07/23/20 07/23/20 23:17 23:17 23:17 WBC 7.5 RBC 3.52 L Hgb 10.0 L Hct 30.4 L MCV 86 MCH 28.4 MCHC 32.9 RDW 14.8 H Plt Count 220 Seg Neutrophils % 82.7 H Carbonic Acid HCO3/H2CO3 Ratio ABG pH ABG pCO2 ABG pO2 ABG HCO3 ABG O2 Saturation ABG Base Excess FiO2 Sodium Potassium Chloride Carbon Dioxide Anion Gap BUN Creatinine Est GFR ( Amer) Glucose Lactic Acid 1.7 Calcium Ferritin 68.20 Total Bilirubin AST Alkaline Phosphatase C-Reactive Protein 20.7 H Total Protein Albumin Triglycerides 171 H 07/23/20 23:17 WBC RBC Hgb Hct MCV MCH MCHC RDW Plt Count Seg Neutrophils % Carbonic Acid HCO3/H2CO3 Ratio ABG pH ABG pCO2 ABG pO2 ABG HCO3 ABG O2 Saturation ABG Base Excess FiO2 Sodium 133.6 L Potassium 5.0 D Chloride 90 L Carbon Dioxide 39 H Anion Gap 5 BUN 46 H Creatinine 1.01 Est GFR ( Amer) > 60 Glucose 221 H Lactic Acid Calcium 9.2 Ferritin Total Bilirubin 0.7 AST 20 Alkaline Phosphatase 77 C-Reactive Protein Total Protein 5.9 L Albumin 3.0 L Triglycerides 07/23/20 14:38 Troponin I 0.043 NT-Pro-B Natriuret Pep 5520 H Impressions: Chest CT 07/23/20 00:00 IMPRESSION: 1. Small right pleural effusion with adjacent atelectasis. 2. No consolidation or pneumothorax. Chest X-Ray 07/23/20 17:51 IMPRESSION: Endotracheal tube and NG tube as described. Right pleural effusion with associated atelectasis. Cardiomegaly without lakisha pulmonary edema. All labs, radiographs, diagnostic studies and EKGs were personally reviewed: Yes In addition, reports of radiographic and diagnostic studies were read: Yes Critical Time Critical Time (minutes): 60 -: The care of a critically ill patient is dynamic. This note represents a static moment in the admission process. Orders and treatments may be given simultaneously and urgently, and time is not market survey representative of the treatment process. This patient requires Critical Care secondary to life threatening organ or limb dysfunction. Without Critical Care services, the patient is at risk for increased mortality and morbidity.
[2020-07-24] MEDS: ALBUTEROL SULFATE 0.083% NEB 2.5 MG/3 ML AMPUL NEB SCH ×4 (02:31→20:32)
[2020-07-24 03:13] LABS: ARTERIAL BLOOD BASE EXCESS 11.2 mmol/L; ARTERIAL BLOOD H2CO3 1.29 mmol/L (1.05-1.35); ARTERIAL BLOOD O2 SATURATION 97.1 % (94-98); ARTERIAL BLOOD PCO2 42.7 mmHg (35-45); ARTERIAL BLOOD PH 7.53 (7.35-7.45); ARTERIAL BLOOD PO2 82.5 mmHg (80-100); ARTERIAL BLOOD TOTAL CO2 36.3 mmol/L (21-25)
[2020-07-24 03:14] LABS: ARTERIAL BLOOD FIO2 60%
[2020-07-24] MEDS: HEPARIN SOD (PORCINE) 5,000 UNIT/ML 1 ML VIAL SUBCUT SCH ×3 (05:42→23:18)
[2020-07-24 07:59] LABS: HEMATOCRIT 31.6 % (36.0-47.0); HEMOGLOBIN 10.3 g/dL (12.0-15.5); MEAN CORPUSCULAR HEMOGLOBIN 27.8 pg (27.0-33.4); MEAN CORPUSCULAR HGB CONC 32.6 g/dL (32.0-36.0); MEAN CORPUSCULAR VOLUME 86 fl (80-97); PLATELET COUNT 232 10^3/uL (150-450); RED CELL DISTRIBUTION WIDTH 14.7 % (11.5-14.0)
[2020-07-24 08:15] LABS: ANION GAP 7 (5-19); BLOOD UREA NITROGEN 47 mg/dL (7-20); CALCIUM 9.4 mg/dL (8.4-10.2); CARBON DIOXIDE 39 mmol/L (22-30); CHLORIDE 90 mmol/L (98-107); GLUCOSE 285 mg/dL (75-110); PHOSPHORUS 2.6 mg/dL (2.5-4.5); POTASSIUM 4.9 mmol/L (3.6-5.0)
--- NOTE | 2020-07-24 08:20 | CRITICAL CARE ADMISSION REPORT ---
HPI Date:: 07/23/20 Time:: 18:19 Reason for ICU Reason:: Acute hypercapnic respiratory failure Admission Date/Time & PCP: Admission Date/Time: Primary Care Provider: HPI: This 74-year-old obese female presented to [facility] emergency department with complaints of increased shortness of breath earlier today. She reported having a nonproductive cough over the last several weeks. No fevers. She became acutely short of breath earlier today and presented to the emergency department. At the time of clinical encounter, the patient has been intubated in the emergency department after failing to improve clinically despite 2 hours of BiPAP support. History obtained from:: Review of the record; discussion with Dr. Beyer - Diagnosis/Plan (1) Acute on chronic respiratory failure with hypoxia and hypercapnia Is this a current diagnosis for this admission?: Yes Plan: * ABG to be obtained 1 hour after intubation. * Titrate ventilator settings based on ABG results. * Start propofol for sedation. (2) Congestive heart failure Qualifiers: Heart failure chronicity: acute on chronic Is this a current diagnosis for this admission?: Yes Plan: * Repeat BNP in a.m. * 2D echocardiographic interrogation. (3) Pleural effusion, right Is this a current diagnosis for this admission?: Yes Plan: Chest CT without contrast to evaluate whether or not this is a free-flowing effusion. (4) COPD exacerbation Is this a current diagnosis for this admission?: Yes Plan: * Albuterol every 4 hours scheduled and every 2 hours as needed. * Budesonide 0.25 mg every 12 hours. * Solu-Medrol 60 mg IV every 6 hours. (5) Hyperkalemia Is this a current diagnosis for this admission?: Yes Plan: * Lasix 40 mg IV single dose. * Calcium gluconate 1 g IV. * Strict I/O. * Place Soliman catheter. (6) Normocytic anemia Is this a current diagnosis for this admission?: Yes Plan: Monitor hemoglobin. (7) Diabetes mellitus type 2 in obese Is this a current diagnosis for this admission?: Yes Plan: * Sliding scale insulin for now. * Of note, the patient's diabetes regimen includes Lantus 100 units subcutaneous nightly in addition to Humalog sliding scale (8) Gastro-esophageal reflux disease without esophagitis Is this a current diagnosis for this admission?: Yes Plan: Protonix 40 mg IV daily. (9) Hypertension Qualifiers: Hypertension type: essential hypertension Qualified Code(s): I10 - Essential (primary) hypertension Is this a current diagnosis for this admission?: Yes Plan: * In light of the patient's elevated BNP, will administer furosemide 40 mg IV single dose. * Vasotec 1.25 mg IV every 6 hours. * Home antihypertensive regimen: irbesartan 300 mg p.o. daily; hydroch lorothiazide 25 mg p.o. daily; diltiazem 120 mg p.o. daily. (10) Morbid obesity Is this a current diagnosis for this admission?: Yes Past Medical History Cardiac Medical History: Reports: Atrial Fibrillation, Congestive Heart Failure, Hypertension Denies: Coronary Artery Disease, Myocardial Infarction, Hyperlipidema Pulmonary Medical History: Reports: Asthma - As a child, Bronchitis, Chronic Obstructive Pulmonary Disease (COPD), Pneumonia, Respiratory Failure - Chronic hypoxic respiratory failure on supplemental oxygen @ home Denies: Sleep Apnea Neurological Medical History: Denies: Seizures Endocrine Medical History: Reports: Diabetes Mellitus Type 2 Denies: Diabetes Mellitus Type 1, Hyperthyroidism, Hypothyroidism GI Medical History: Reports: Gastroesophageal Reflux Disease Denies: Cirrhosis, Crohn's Disease, Hepatitis, Ulcerative Colitis Musculoskeltal Medical History: Denies: Arthritis, Gout Skin Medical History: Denies: Eczema, Psoriasis Psychiatric Medical History: Denies: Depression Hematology: Denies: Anemia, Bleeding Tendencies Past Surgical History Past Surgical History: Reports: Orthopedic Surgery - Bilateral carpal tunnel, Tonsillectomy, Tubal Ligation, Other - Bilateral cataracts with lens replacements Social/Family History - Social History Smoking Status: Former Smoker Frequency of Alcohol Use: None Hx Recreational Drug Use: No Drugs: None Hx Prescription Drug Abuse: No - Medication/Allergies Home Medications: RX: Albuterol Sulfate [Proair HFA Inhalation Aerosol 8.5 gm MDI] 2 puff IH Q4HP PRN 03/07/20 RX: Cholecalciferol (Vitamin D3) [Vitamin D3] 2 tab PO DAILY 03/07/20 RX: Diltiazem HCl [Diltiazem 24Hr ER] 120 mg PO DAILY 03/07/20 RX: Hydrochlorothiazide [Hydrodiuril 25 mg Tablet] 25 mg PO DAILY 03/07/20 RX: Insulin Glargine,Hum.rec.anlog [Lantus (Pyxis) Insulin 100 Unit/1 ml 10 ml] 100 unit SQ QHS 03/07/20 RX: Insulin Lispro [Humalog Insulin (Lispro) 100 unit/mL] 60 unit SQ AC 03/07/20 RX: Irbesartan 300 mg PO DAILY 03/07/20 Allergies/Adverse Reactions: peach Allergy (Verified 07/23/20 14:11) Ltqiprj-Yna-Hoe Reductase Inhibitor Allergy (Verified 07/23/20 14:11) Review of Systems ROS unobtainable: Due to endotracheal tube, Due to mental status Physical Exam Vital Signs: Temp Pulse Resp BP Pulse Ox 98.0 F 93 22 H 139/54 H 93 07/23/20 16:05 07/23/20 14:25 07/23/20 16:02 07/23/20 16:02 07/23/20 16:02 Intake & Output 07/22/20 07/23/20 07/24/20 06:59 06:59 06:59 Weight 122.47 kg Weight/Height Weight 122.47 kg Height 1.5 m General appearance: PRESENT: no acute distress, morbidly obese, well-nourished Head exam: PRESENT: atraumatic, normocephalic Eye exam: PRESENT: other - Still under the effects of rapid sequence induction for intubation Neck exam: ABSENT: carotid bruit, JVD, lymphadenopathy, thyromegaly Respiratory exam: PRESENT: crackles, symmetrical, wheezes. ABSENT: rales, rhonchi Cardiovascular exam: PRESENT: RRR. ABSENT: diastolic murmur, rubs, systolic murmur Pulses: PRESENT: normal dorsalis pedis pul GI/Abdominal exam: PRESENT: normal bowel sounds, soft. ABSENT: distended, gu arding, mass, organolmegaly, rebound, tenderness Extremities exam: PRESENT: full ROM, pedal edema, +1 edema. ABSENT: calf tenderness, clubbing Musculoskeletal exam: PRESENT: normal inspection. ABSENT: deformity Neurological exam: PRESENT: altered, motor sensory deficit, other - Still under the effects of rapid sequence induction for intubation. ABSENT: reflexes normal Skin exam: PRESENT: dry, intact, warm. ABSENT: cyanosis, rash Tubes/Lines: PRESENT: Endotracheal Tube Laboratory/Radiographs Laboratory Results: 07/23/20 14:38 07/23/20 14:38 07/23/20 07/23/20 07/23/20 14:38 14:38 15:39 WBC 7.8 RBC 3.94 Hgb 10.9 L Hct 34.7 L MCV 88 MCH 27.8 MCHC 31.5 L RDW 14.7 H Plt Count 263 Seg Neutrophils % Not Reportable Carbonic Acid HCO3/H2CO3 Ratio ABG pH ABG pCO2 ABG pO2 ABG HCO3 ABG O2 Saturation ABG Base Excess FiO2 Sodium 137.8 Potassium 6.1 H* Chloride 91 L Carbon Dioxide 41 H* Anion Gap 6 BUN 37 H Creatinine 1.07 Est GFR ( Amer) > 60 Glucose 193 H Lactic Acid 0.7 Calcium 9.5 Total Bilirubin 0.7 AST 21 Alkaline Phosphatase 100 Total Protein 7.1 Albumin 3.8 07/23/20 16:54 WBC RBC Hgb Hct MCV MCH MCHC RDW Plt Count Seg Neutrophils % Carbonic Acid 3.97 H HCO3/H2CO3 Ratio 12:1 ABG pH 7.19 L* ABG pCO2 131.8 H* ABG pO2 79.1 L ABG HCO3 48.6 H ABG O2 Saturation 90.8 L ABG Base Excess 15.7 FiO2 50% Sodium Potassium Chloride Carbon Dioxide Anion Gap BUN Creatinine Est GFR ( Amer) Glucose Lactic Acid Calcium Total Bilirubin AST Alkaline Phosphatase Total Protein Albumin 07/23/20 14:38 Troponin I 0.043 NT-Pro-B Natriuret Pep 5520 H Impressions: Chest X-Ray 07/23/20 14:08 IMPRESSION: Limited examination demonstrating a right-sided pleural effusion with compressive atelectasis versus consolidation of the right lower lobe. Given lack of overt central vascular congestion, favor infectious etiology. All labs, radiographs, diagnostic studies and EKGs were personally reviewed: Yes In addition, reports of radiographic and diagnostic studies were read: Yes Critical Time Critical Time (minutes): 60 -: The care of a critically ill patient is dynamic. This note represents a static moment in the admission process. Orders and treatments may be given simultaneously and urgently, and time is not pharmaceutical service representative of the treatment process. This patient requires Critical Care secondary to life threatening organ or limb dysfunction. Without Critical Care services, the patient is at risk for increased mortality and morbidity.
[2020-07-24 08:22] LABS: ABSOLUTE LYMPHOCYTES# (MANUAL) 0.2 10^3/uL (0.5-4.7); ABSOLUTE MONOCYTES # (MANUAL) 0.1 10^3/uL (0.1-1.4); ANISOCYTOSIS SLIGHT; BASOPHILS % (MANUAL) 0 % (0-2); EOSINOPHILS % (MANUAL) 0 % (0-6); LYMPHOCYTES % (MANUAL) 2 % (13-45); MONOCYTES % (MANUAL) 1 % (3-13); PLATELET CLUMPS PRESENT; PLATELET COMMENT ADEQUATE; SEGMENTED NEUTROPHILS % (MAN) 97 % (42-78); TOTAL CELLS COUNTED 100
[2020-07-24 08:23] LABS: PREALBUMIN 15.2 mg/dL (17.6-36.0)
[2020-07-24] MEDS: BUDESONIDE NEB 0.25 MG/2 ML AMPUL NEB SCH ×2 (08:23→20:32)
--- NOTE | 2020-07-24 08:45 | RADIOLOGY REPORT (SQ) ---
EXAM DESCRIPTION: CHEST SINGLE VIEW IMAGES COMPLETED DATE/TIME: 07/24/2020 5:22 am REASON FOR STUDY: ETT tube COMPARISON: 07/23/2020 NUMBER OF VIEWS: One view. TECHNIQUE: Single frontal radiographic image of the chest acquired. LIMITATIONS: None. FINDINGS: LUNGS AND PLEURA: Some clearing of the right basilar airspace disease. Persistent bilater al pleural effusions right greater than left. Left effusion has increased since yesterday. MEDIASTINUM AND HILAR STRUCTURES: Stable heart size and mediastinal structures. HEART AND VASCULAR STRUCTURES: Stable appearance. SUPPORT DEVICES: Appropriate location without change. BONES: No acute findings. OTHER: No other significant finding. IMPRESSION: Minimal improvement aeration in the right base. Increasing left pleural effusion. TECHNICAL DOCUMENTATION: JOB ID: [id number] 2010 [employer]- All Rights Reserved Reading location - IP/workstation name: [email or web address]
[2020-07-24] MEDS: PANTOPRAZOLE SODIUM 40 MG VIAL IV SCH (10:27)
[2020-07-24 13:25] LABS: ARTERIAL BLOOD BASE EXCESS 9.1 mmol/L; ARTERIAL BLOOD H2CO3 1.55 mmol/L (1.05-1.35); ARTERIAL BLOOD HCO3 34.6 mmol/L (20-24); ARTERIAL BLOOD O2 SATURATION 96.4 % (94-98); ARTERIAL BLOOD PCO2 51.4 mmHg (35-45); ARTERIAL BLOOD PH 7.45 (7.35-7.45); ARTERIAL BLOOD PO2 83.2 mmHg (80-100); ARTERIAL BLOOD TOTAL CO2 36.2 mmol/L (21-25)
[2020-07-24 13:36] LABS: ARTERIAL BLOOD FIO2 60%
[2020-07-24] MEDS ORDERED: FUROSEMIDE INJ/PF 40 MG/4 ML SDV IV ONE ×2 (13:45→23:50)
[2020-07-24] MEDS: MAGNESIUM SULFATE/D5W 1 GM/100 ML RTUPB IV SCH ×2 (15:00→15:54)
--- NOTE | 2020-07-24 18:48 | PDOC CRITICAL CARE PROG REPORT ---
General Date:: 07/24/20 ICU Day:: 2 Ventilator Day:: 2 Resuscitation Status: Full Code Events in the past 12 to 24 Hours:: This 74-year-old obese female presented [facility] emergency department on 07/23/2020 with complaints of increased shortness of breath. She reported having a nonproductive cough over the previous week. No fevers. Acute increase in shortness of breath prompted her presentation. She was intubated in the emergency department with acute hypercapnic respiratory failure despite 2 hours of BiPAP support. 07/24: Diuresed briskly with a single dose of Lasix 40 mg IV. Airway pressures have decreased overall. ABG this a.m.: 7.53/43/83 on PRVC 16/480/60%/5. K 4.9 (down from 6.1). On propofol for sedation. Review of systems relevant to events:: Respiratory: Dyspnea Reason for ICU Addmission:: Acute hypercapnic respiratory failure - Medications: Medications reviewed and adjusted accordingly: Yes Sedation:: Propofol Physical Exam Vital Signs: Temp Pulse Resp BP Pulse Ox 100.2 F 94 18 149/68 H 97 07/24/20 10:00 07/24/20 10:00 07/24/20 10:00 07/24/20 11:55 07/24/20 12:15 Intake & Output 07/23/20 07/24/20 07/25/20 06:59 06:59 06:59 Intake Total 849 170 Output Total 1305 510 Balance -456 -340 Weight 121.1 kg Weight/Height Weight 121.1 kg Height 1.5 m General appearance: PRESENT: no acute distress, morbidly obese, well-developed, well-nourished Head exam: PRESENT: atraumatic, normocephalic Eye exam: PRESENT: conjunctiva pink, EOMI, PERRLA. ABSENT: scleral icterus Mouth exam: PRESENT: moist, tongue midline Neck exam: ABSENT: carotid bruit, JVD, lymphadenopathy, thyromegaly Respiratory exam: PRESENT: rales. ABSENT: rhonchi, wheezes Cardiovascular exam: PRESENT: RRR. ABSENT: diastolic murmur, rubs, systolic murmur Pulses: PRESENT: normal dorsalis pedis pul GI/Abdominal exam: PRESENT: normal bowel sounds, soft. ABSENT: distended, guarding, mass, organolmegaly, rebound, tenderness Gentrourinary exam: PRESENT: indwelling catheter Extremities exam: PRESENT: full ROM, pedal edema, +1 edema. ABSENT: calf tenderness, clubbing Musculoskeletal exam: PRESENT: normal inspection. ABSENT: deformity Neurological exam: PRESENT: altered, reflexes normal, CN II-XII grossly intact. ABSENT: motor sensory deficit Psychiatric exam: ABSENT: agitated, anxious Skin exam: PRESENT: dry, intact, warm. ABSENT: cyanosis, rash Tubes/Lines: PRESENT: Endotracheal Tube Laboratory/Radiographs Laboratory Results: 07/24/20 07:30 07/24/20 07:30 07/23/20 07/23/20 07/23/20 14:38 14:38 15:39 WBC 7.8 RBC 3.94 Hgb 10.9 L Hct 34.7 L MCV 88 MCH 27.8 MCHC 31.5 L RDW 14.7 H Plt Count 263 Seg Neutrophils % Not Reportable Carbonic Acid HCO3/H2CO3 Ratio ABG pH ABG pCO2 ABG pO2 ABG HCO3 ABG O2 Saturation ABG Base Excess FiO2 Sodium 137.8 Potassium 6.1 H* Chloride 91 L Carbon Dioxide 41 H* Anion Gap 6 BUN 37 H Creatinine 1.07 Est GFR ( Amer) > 60 Glucose 193 H Lactic Acid 0.7 Calcium 9.5 Phosphorus Magnesium Ferritin Total Bilirubin 0.7 AST 21 Alkaline Phosphatase 100 C-Reactive Protein Total Protein 7.1 Albumin 3.8 Prealbumin Triglycerides 07/23/20 07/23/20 07/23/20 16:54 20:57 21:45 WBC RBC Hgb Hct MCV MCH MCHC RDW Plt Count Seg Neutrophils % Carbonic Acid 3.97 H 1.58 H HCO3/H2CO3 Ratio 12:1 24:1 ABG pH 7.19 L* 7.49 H ABG pCO2 131.8 H* 52.4 H ABG pO2 79.1 L 56.5 L ABG HCO3 48.6 H 38.9 H ABG O2 Saturation 90.8 L 91.0 L ABG Base Excess 15.7 13.6 FiO2 50% 50 Sodium Potassium Chloride Carbon Dioxide Anion Gap BUN Creatinine Est GFR ( Amer) Glucose Lactic Acid 1.7 Calcium Phosphorus Magnesium Ferritin Total Bilirubin AST Alkaline Phosphatase C-Reactive Protein Total Protein Albumin Prealbumin Triglycerides 07/23/20 07/23/20 07/23/20 23:17 23:17 23:17 WBC 7.5 RBC 3.52 L Hgb 10.0 L Hct 30.4 L MCV 86 MCH 28.4 MCHC 32.9 RDW 14.8 H Plt Count 220 Seg Neutrophils % 82.7 H Carbonic Acid HCO3/H2CO3 Ratio ABG pH ABG pCO2 ABG pO2 ABG HCO3 ABG O2 Saturation ABG Base Excess FiO2 Sodium Potassium Chloride Carbon Dioxide Anion Gap BUN Creatinine Est GFR ( Amer) Glucose Lactic Acid 1.7 Calcium Phosphorus Magnesium Ferritin 68.20 Total Bilirubin AST Alkaline Phosphatase C-Reactive Protein 20.7 H Total Protein Albumin Prealbumin Triglycerides 171 H 07/23/20 07/24/20 07/24/20 23:17 02:25 07:30 WBC 8.0 RBC 3.70 L Hgb 10.3 L Hct 31.6 L MCV 86 MCH 27.8 MCHC 32.6 RDW 14.7 H Plt Count 232 Seg Neutrophils % Not Reportable Carbonic Acid 1.29 HCO3/H2CO3 Ratio 27:1 ABG pH 7.53 H ABG pCO2 42.7 ABG pO2 82.5 ABG HCO3 35.0 H ABG O2 Saturation 97.1 ABG Base Excess 11.2 FiO2 60% Sodium 133.6 L Potassium 5.0 D Chloride 90 L Carbon Dioxide 39 H Anion Gap 5 BUN 46 H Creatinine 1.01 Est GFR ( Amer) > 60 Glucose 221 H Lactic Acid Calcium 9.2 Phosphorus Magnesium Ferritin Total Bilirubin 0.7 AST 20 Alkaline Phosphatase 77 C-Reactive Protein Total Protein 5.9 L Albumin 3.0 L Prealbumin Triglycerides 07/24/20 07:30 WBC RBC Hgb Hct MCV MCH MCHC RDW Plt Count Seg Neutrophils % Carbonic Acid HCO3/H2CO3 Ratio ABG pH ABG pCO2 ABG pO2 ABG HCO3 ABG O2 Saturation ABG Base Excess FiO2 Sodium 135.5 L Potassium 4.9 Chloride 90 L Carbon Dioxide 39 H Anion Gap 7 BUN 47 H Creatinine 1.11 Est GFR ( Amer) 58 L Glucose 285 H Lactic Acid Calcium 9.4 Phosphorus 2.6 Magnesium 1.7 Ferritin Total Bilirubin AST Alkaline Phosphatase C-Reactive Protein Total Protein Albumin Prealbumin 15.2 L Triglycerides 07/23/20 07/24/20 14:38 07:30 Troponin I 0.043 NT-Pro-B Natriuret Pep 5520 H 5920 H Impressions: Chest CT 07/23/20 00:00 IMPRESSION: 1. Small right pleural effusion with adjacent atelectasis. 2. No consolidation or pneumothorax. Chest X-Ray 07/24/20 05:00 IMPRESSION: Minimal improvement aeration in the right base. Increasing left pleural effusion. All labs, radiographs, diagnostic studies and EKGs were personally reviewed: Yes In addition, reports of radiographic and diagnostic studies were read: Yes Assessment and Plan - Diagnosis (1) Acute on chronic respiratory failure with hypoxia and hypercapnia Is this a current diagnosis for this admission?: Yes Plan: * Titrate vent settings based on ABG results. * Continue propofol for sedation. (2) Pleural effusion, right Is this a current diagnosis for this admission?: Yes Plan: * X-ray in a.m. * Diurese again today. (3) Congestive heart failure Qualifiers: Heart failure chronicity: acute on chronic Is this a current diagnosis for this admission?: Yes Plan: * Diurese again today. * Repeat BNP in a.m. * Awaiting 2D echo. (4) COPD exacerbation Is this a current diagnosis for this admission?: Yes Plan: * Continue aerosols. * Decrease Solu-Medrol to 60 mg IV every 8 hours. (5) Diabetes mellitus type 2 in obese Is this a current diagnosis for this admission?: Yes Plan: * Continue sliding scale insulin. * May need to consider insulin infusion. (6) Hyperkalemia Is this a current diagnosis for this admission?: Yes (7) Normocytic anemia Is this a current diagnosis for this admission?: Yes (8) Gastro-esophageal reflux disease without esophagitis Is this a current diagnosis for this admission?: Yes (9) Hypertension Qualifiers: Hypertension type: essential hypertension Qualified Code(s): I10 - Essential (primary) hypertension Is this a current diagnosis for this admission?: Yes (10) Morbid obesity Is this a current diagnosis for this admission?: Yes Critical Time Critical Time (minutes): 60 Level of Care: ICU -: 1. The care of a critical patient is a dynamic process. This note is a statement services representative synopsis but static in nature. The timeframe for treatments given in order is not necessarily the actual time these treatments may have been done. 2. This patient requires critical care secondary to ongoing requirements for therapy not offered or safe outside the critical care environment. Transfer to a lower level of care will result in altered life or limb morbidity and mortality. 3. Multidisciplinary rounds completed. 4. ABCDE bundle addressed.
[2020-07-24] MEDS: CEFTRIAXONE 1 GM/D5W RTU 1 GM/50 ML RTUPB IV SCH (21:00)
[2020-07-24] MEDS: AZITHROMYCIN 500 MG in DEXTROSE 5%-WATER 250 ML IV SCH (22:00)
[2020-07-24] MEDS ORDERED: DEXTROSE 40% GEL 15 GM TUBE PO PRN ×2 (23:52)
[2020-07-24] MEDS ORDERED: GLUCAGON,HUMAN RECOMB 1 MG INJ IM PRN (23:52)
[2020-07-24] MEDS ORDERED: DEXTROSE 50%-WATER 25 GM/50 ML DISP.SYRIN IV PRN ×2 (23:52)
[2020-07-25] MEDS ORDERED: INSULIN REG, HUMAN 100 UNIT/ML 3 ML VIAL (PYX) ONE (00:18)
[2020-07-25] MEDS: ENALAPRILAT DIHYDRATE INJ/PF 1.25 MG/1 ML SDV IV SCH ×4 (00:56→17:35)
[2020-07-25] MEDS: METHYLPREDNISOLONE INJ 125 MG/2 ML SDV IV SCH ×2 (00:56→05:41)
[2020-07-25] MEDS: NORMAL SALINE 100 ML with INSULIN REGULAR, HUMAN 100 UNIT IV PRN ×6 (00:57→19:40)
[2020-07-25] MEDS: ALBUTEROL SULFATE 0.083% NEB 2.5 MG/3 ML AMPUL NEB SCH ×4 (01:41→20:51)
[2020-07-25] MEDS: HEPARIN SOD (PORCINE) 5,000 UNIT/ML 1 ML VIAL SUBCUT SCH ×3 (05:41→22:21)
[2020-07-25 05:54] LABS: ANION GAP 7 (5-19); BLOOD UREA NITROGEN 57 mg/dL (7-20); CALCIUM 9.4 mg/dL (8.4-10.2); CARBON DIOXIDE 38 mmol/L (22-30); CHLORIDE 88 mmol/L (98-107); GLUCOSE 288 mg/dL (75-110); POTASSIUM 4.3 mmol/L (3.6-5.0)
[2020-07-25 06:09] LABS: PHOSPHORUS 4.8 mg/dL (2.5-4.5)
[2020-07-25] MEDS: PROPOFOL 1,000 MG/100 ML INFUS..BTL IV PRN ×6 (07:00→21:30)
[2020-07-25] MEDS: BUDESONIDE NEB 0.25 MG/2 ML AMPUL NEB SCH ×2 (08:07→20:51)
--- NOTE | 2020-07-25 09:34 | RADIOLOGY REPORT (SQ) ---
EXAM DESCRIPTION: CHEST SINGLE VIEW IMAGES COMPLETED DATE/TIME: 07/25/2020 5:59 am REASON FOR STUDY: ETT tube COMPARISON: 07/24/2020 EXAM PARAMETERS: NUMBER OF VIEWS: One view TECHNIQUE: Single frontal radiograph of the chest. RADIATION DOSE: N/A LIMITATIONS: None. FINDINGS: TEMPORARY SUPPORT DEVICES:ETT in expected location. NG tube courses below the loco-diaphr agm in to the stomach. LUNGS AND PLEURA: Basilar atelectasis and bilateral pleural effusions. Opacity at the left base with air bronchograms. MEDIASTINUM AND HILAR STRUCTURES: No masses. Contour normal. HEART AND VASCULAR STRUCTURES: Heart size normal. Normal vascularity. Aorta normal for age BONES: No acute findings. OTHER: No other significant finding. IMPRESSION: Bibasilar effusions, atelectasis, left opacity. No interval change. SUPPORT DEVICE(S) IN EXPECTED LOCATIONS. TECHNICAL DOCUMENTATION: JOB ID: [id number] 2010 [employer]- All Rights Reserved Reading location - IP/workstation name: [email or web address]
[2020-07-25 10:29] LABS: ARTERIAL BLOOD BASE EXCESS 14.6 mmol/L; ARTERIAL BLOOD H2CO3 1.87 mmol/L (1.05-1.35); ARTERIAL BLOOD HCO3 41.2 mmol/L (20-24); ARTERIAL BLOOD PH 7.44 (7.35-7.45); ARTERIAL BLOOD PO2 69.5 mmHg (80-100); ARTERIAL BLOOD TOTAL CO2 43.1 mmol/L (21-25)
[2020-07-25 10:30] LABS: ARTERIAL BLOOD FIO2 60%
[2020-07-25] MEDS: PANTOPRAZOLE SODIUM 40 MG VIAL IV SCH (10:33)
[2020-07-25 10:38] LABS: HEMATOCRIT 31.5 % (36.0-47.0); HEMOGLOBIN 10.1 g/dL (12.0-15.5); MEAN CORPUSCULAR HEMOGLOBIN 27.3 pg (27.0-33.4); MEAN CORPUSCULAR VOLUME 85 fl (80-97); PLATELET COUNT 241 10^3/uL (150-450); RED CELL DISTRIBUTION WIDTH 14.9 % (11.5-14.0); WHITE BLOOD COUNT 11.6 10^3/uL (4.0-10.5)
[2020-07-25 11:04] LABS: ABSOLUTE LYMPHOCYTES# (MANUAL) 0.1 10^3/uL (0.5-4.7); ABSOLUTE MONOCYTES # (MANUAL) 0.3 10^3/uL (0.1-1.4); BASOPHILS % (MANUAL) 0 % (0-2); EOSINOPHILS % (MANUAL) 0 % (0-6); LYMPHOCYTES % (MANUAL) 0 % (13-45); MONOCYTES % (MANUAL) 3 % (3-13); SEGMENTED NEUTROPHILS % (MAN) 96 % (42-78); TOTAL CELLS COUNTED 100
[2020-07-25 11:05] LABS: PLATELET COMMENT ADEQUATE; RBC MORPHOLOGY COMMENT NORMO-CYTIC/CHROMIC
[2020-07-25] MEDS: FUROSEMIDE INJ/PF 40 MG/4 ML SDV IV SCH (12:46)
[2020-07-25] MEDS ORDERED: ENALAPRILAT DIHYDRATE INJ/PF 1.25 MG/1 ML SDV IV ONE (13:29)
[2020-07-25] MEDS: METHYLPREDNISOLONE INJ 40 MG/1 ML SDV IV SCH ×2 (13:34→22:20)
[2020-07-25] MEDS ORDERED: METHYLPREDNISOLONE INJ 125 MG/2 ML SDV IV SCH (14:00)
--- NOTE | 2020-07-25 17:36 | PDOC CRITICAL CARE PROG REPORT ---
General Date:: 07/25/20 ICU Day:: 3 Ventilator Day:: 3 Hospital Day:: 3 Resuscitation Status: Full Code Events in the past 12 to 24 Hours:: This 74-year-old obese female presented [facility] emerg ency department on 07/23/2020 with complaints of increased shortness of breath. She reported having a nonproductive cough over the previous week. No fevers. Acute increase in shortness of breath prompted her presentation. She was intubated in the emergency department with acute hypercapnic respiratory failure despite 2 hours of BiPAP support. 07/24: Diuresed briskly with a single dose of Lasix 40 mg IV. Airway pressures have decreased overall. ABG this a.m.: 7.53/43/83 on PRVC 16/480/60%/5. K 4.9 (down from 6.1). On propofol for sedation. 07/25: Currently on SIMV(PRVC) 12/480/60%/5 + PSV 10. Synchronous with ventilator set rate. ABG this a.m.: 7.44/62/70. K now down to 4.3. On pro pofol for sedation. Easily arousable. Review of systems relevant to events:: Respiratory: Dyspnea Reason for ICU Addmission:: Acute hypercapnic respiratory failure - Medications: Medications reviewed and adjusted accordingly: Yes Sedation:: Propofol Physical Exam Vital Signs: Temp Pulse Resp BP Pulse Ox 98.1 F 78 12 111/50 L 95 07/25/20 09:00 07/25/20 08:08 07/25/20 09:00 07/25/20 08:58 07/25/20 09:00 Intake & Output 07/24/20 07/25/20 07/26/20 06:59 06:59 06:59 Intake Total 849 1089 184 Output Total 1305 2160 150 Balance -456 -1071 34 Weight 121.1 kg 122 kg Weight/Height Weight 122 kg Height 1.5 m General appearance: PRESENT: no acute distress, morbidly obese, well-developed, well-nourished Head exam: PRESENT: atraumatic, normocephalic Eye exam: PRESENT: conjunctiva pink, EOMI, PERRLA. ABSENT: scleral icterus Mouth exam: PRESENT: moist, tongue midline Neck exam: ABSENT: carotid bruit, JVD, lymphadenopathy, thyromegaly Respiratory exam: PRESENT: rales, symmetrical, unlabored. ABSENT: prolonged expiratory phas, rhonchi, wheezes Cardiovascular exam: PRESENT: RRR. ABSENT: diastolic murmur, rubs, systolic murmur Pulses: PRESENT: normal dorsalis pedis pul GI/Abdominal exam: PRESENT: normal bowel sounds, soft. ABSENT: distended, guarding, mass, organolmegaly, rebound, tenderness Gentrourinary exam: PRESENT: indwelling catheter Extremities exam: PRESENT: full ROM, pedal edema. ABSENT: calf tenderness, clubbing Musculoskeletal exam: PRESENT: normal inspection. ABSENT: deformity Neurological exam: PRESENT: altered, reflexes normal, CN II-XII grossly intact. ABSENT: motor sensory deficit Psychiatric exam: ABSENT: agitated, anxious Skin exam: PRESENT: dry, intact, warm. ABSENT: cyanosis, rash Tubes/Lines: PRESENT: Endotracheal Tube Laboratory/Radiographs Laboratory Results: 07/25/20 04:57 07/24/20 07/25/20 07/25/20 13:10 04:57 10:26 Carbonic Acid 1.55 H 1.87 H HCO3/H2CO3 Ratio 22:1 22:1 ABG pH 7.45 7.44 ABG pCO2 51.4 H 62.0 H ABG pO2 83.2 69.5 L ABG HCO3 34.6 H 41.2 H ABG O2 Saturation 96.4 94.0 ABG Base Excess 9.1 14.6 FiO2 60% 60% Sodium 133.4 L Potassium 4.3 Chloride 88 L Carbon Dioxide 38 H Anion Gap 7 BUN 57 H Creatinine 1.20 Est GFR ( Amer) 53 L Glucose 288 H Calcium 9.4 Phosphorus 4.8 H D Magnesium 2.2 07/23/20 07/24/20 14:38 07:30 Troponin I 0.043 NT-Pro-B Natriuret Pep 5520 H 5920 H Impressions: Chest CT 07/23/20 00:00 IMPRESSION: 1. Small right pleural effusion with adjacent atelectasis. 2. No consolidation or pneumothorax. Chest X-Ray 07/25/20 05:00 IMPRESSION: Bibasilar effusions, atelectasis, left opacity. No interval change. SUPPORT DEVICE(S) IN EXPECTED LOCATIONS. All labs, radiographs, diagnostic studies and EKGs were personally reviewed: Yes In addition, reports of radiographic and diagnostic studies were read: Yes Assessment and Plan - Diagnosis (1) Acute on chronic respiratory failure with hypoxia and hypercapnia Is this a current diagnosis for this admission?: Yes Plan: * Titrate vent settings based on ABG results. * Furosemide 40 mg IV daily. (Of note, the patient takes hydrochlorothiazide 25 mg p.o. daily as part of her antihypertensive regimen.) * Continue propofol for sedation. * COVID-19 PUI: clinically suspicious for COVID-19 pneumonia. (2) Pleural effusion, right Is this a current diagnosis for this admission?: Yes Plan: * Chest CT establishes that the patient has a free-flowing right-sided pleural effusion with associated compressive atelectasis. However, there are air bronchograms in the right middle lobe, which are not definitely associated with the pleural effusion. The patient should have follow-up radiographic imaging after clinical resolution to confirm radiographic resolution. * Diurese again today. (3) Congestive heart failure Qualifiers: Heart failure chronicity: acute on chronic Is this a current diagnosis for this admission?: Yes Plan: * Furosemide 40 mg IV daily. * Repeat BNP in a.m. * 2D echo. (4) COPD exacerbation Is this a current diagnosis for this admission?: Yes Plan: * Continue aerosols. * Continue Solu-Medrol to 60 mg IV every 8 hours. (5) Diabetes mellitus type 2 in obese Is this a current diagnosis for this admission?: Yes Plan: * Continue sliding scale insulin. * May need to consider insulin infusion. (6) Hyperkalemia Is this a current diagnosis for this admission?: Yes (7) Normocytic anemia Is this a current diagnosis for this admission?: Yes (8) Gastro-esophageal reflux disease without esophagitis Is this a current diagnosis for this admission?: Yes (9) Hypertension Qualifiers: Hypertension type: essential hypertension Qualified Code(s): I10 - Essential (primary) hypertension Is this a current diagnosis for this admission?: Yes (10) Morbid obesity Is this a current diagnosis for this admission?: Yes (11) Abnormal chest CT Is this a current diagnosis for this admission?: Yes Plan: * Chest CT establishes that the patient has a free-flowing right-sided pleural effusion with associated compressive atelectasis. However, there are air bronchograms in the right middle lobe, which are not definitely associated with the pleural effusion. The patient should have follow-up radiographic imaging after clinical resolution to confirm radiographic resolution. * Respiratory culture ordered on 07/23/2020 still has not been obtained. For now, she is on empiric Rocephin/azithromycin. Critical Time Critical Time (minutes): 60 Level of Care: ICU -: 1. The care of a critical patient is a dynamic process. This note is a guest experience representative synopsis but static in nature. The timeframe for treatments given in order is not necessarily the actual time these treatments may have been done. 2. This patient requires critical care secondary to ongoing requirements for therapy not offered or safe outside the critical care environment. Transfer to a lower level of care will result in altered life or limb morbidity and mortality. 3. Multidisciplinary rounds completed. 4. ABCDE bundle addressed.
[2020-07-25] MEDS: CEFTRIAXONE 1 GM/D5W RTU 1 GM/50 ML RTUPB IV SCH (21:00)
[2020-07-25] MEDS: AZITHROMYCIN 500 MG in DEXTROSE 5%-WATER 250 ML IV SCH (22:19)
[2020-07-26] MEDS: PROPOFOL 1,000 MG/100 ML INFUS..BTL IV PRN ×8 (01:03→20:57)
[2020-07-26] MEDS: ENALAPRILAT DIHYDRATE INJ/PF 1.25 MG/1 ML SDV IV SCH ×4 (01:10→19:21)
[2020-07-26] MEDS: ALBUTEROL SULFATE 0.083% NEB 2.5 MG/3 ML AMPUL NEB SCH ×4 (02:27→20:13)
[2020-07-26 05:18] LABS: ANION GAP 7 (5-19); BLOOD UREA NITROGEN 72 mg/dL (7-20); CALCIUM 9.3 mg/dL (8.4-10.2); CARBON DIOXIDE 39 mmol/L (22-30); CHLORIDE 88 mmol/L (98-107); GLUCOSE 160 mg/dL (75-110); POTASSIUM 4.5 mmol/L (3.6-5.0); TRIGLYCERIDES 226 mg/dL (<150)
[2020-07-26] MEDS: METHYLPREDNISOLONE INJ 40 MG/1 ML SDV IV SCH ×3 (06:03→21:07)
[2020-07-26] MEDS: HEPARIN SOD (PORCINE) 5,000 UNIT/ML 1 ML VIAL SUBCUT SCH ×3 (06:04→21:07)
[2020-07-26 06:54] LABS: ARTERIAL BLOOD BASE EXCESS 12.5 mmol/L; ARTERIAL BLOOD HCO3 38.5 mmol/L (20-24); ARTERIAL BLOOD PCO2 56.4 mmHg (35-45); ARTERIAL BLOOD PH 7.45 (7.35-7.45); ARTERIAL BLOOD PO2 68.2 mmHg (80-100); ARTERIAL BLOOD TOTAL CO2 40.2 mmol/L (21-25)
[2020-07-26 06:57] LABS: ARTERIAL BLOOD FIO2 60%
[2020-07-26 07:39] LABS: HEMATOCRIT 33.1 % (36.0-47.0); HEMOGLOBIN 10.8 g/dL (12.0-15.5); MEAN CORPUSCULAR HEMOGLOBIN 27.4 pg (27.0-33.4); MEAN CORPUSCULAR HGB CONC 32.5 g/dL (32.0-36.0); MEAN CORPUSCULAR VOLUME 84 fl (80-97); PLATELET COUNT 264 10^3/uL (150-450); RED BLOOD COUNT 3.93 10^6/uL (3.72-5.28); RED CELL DISTRIBUTION WIDTH 15.1 % (11.5-14.0); WHITE BLOOD COUNT 12.3 10^3/uL (4.0-10.5)
[2020-07-26] MEDS: BUDESONIDE NEB 0.25 MG/2 ML AMPUL NEB SCH ×2 (08:18→20:12)
[2020-07-26 08:39] LABS: ABSOLUTE LYMPHOCYTES# (MANUAL) 0.2 10^3/uL (0.5-4.7); ABSOLUTE MONOCYTES # (MANUAL) 0.4 10^3/uL (0.1-1.4); BAND NEUTROPHILS % (MANUAL) 1 % (3-5); BASOPHILS % (MANUAL) 0 % (0-2); EOSINOPHILS % (MANUAL) 0 % (0-6); LYMPHOCYTES % (MANUAL) 2 % (13-45); MONOCYTES % (MANUAL) 3 % (3-13); SEGMENTED NEUTROPHILS % (MAN) 94 % (42-78); TOTAL CELLS COUNTED 100
[2020-07-26 08:40] LABS: ANISOCYTOSIS SLIGHT; OVALOCYTES 1+; PLATELET COMMENT ADEQUATE; POIKILOCYTOSIS 1+
--- NOTE | 2020-07-26 09:23 | RADIOLOGY REPORT (SQ) ---
EXAM DESCRIPTION: CHEST SINGLE VIEW IMAGES COMPLETED DATE/TIME: 07/26/2020 5:47 am REASON FOR STUDY: ETT tube COMPARISON: 07/25/2020 EXAM PARAMETERS: NUMBER OF VIEWS: One view. TECHNIQUE: Single frontal radiographic view of the chest acquired. RADIATION DOSE: NA LIMITATIONS: None. FINDINGS: LUNGS AND PLEURA: Minimal basilar opacities/effusions. Slight improved aeration. MEDIASTINUM AND HILAR STRUCTURES: No masses. Contour normal. HEART AND VASCULAR STRUCTURES: Heart enlarged. BONES: No acute findings. HARDWARE: Stable support devices. OTHER: No other significant finding. IMPRESSION: Slight improved aeration of lungs. TECHNICAL DOCUMENTATION: JOB ID: [id number] 2010 [employer]- All Rights Reserved Reading location - IP/workstation name: [email or web address]
[2020-07-26] MEDS: FUROSEMIDE INJ/PF 40 MG/4 ML SDV IV SCH (09:29)
[2020-07-26] MEDS: PANTOPRAZOLE SODIUM 40 MG VIAL IV SCH (09:29)
[2020-07-26] MEDS ORDERED: RINGERS SOLUTION,LACTATED 1,000 ML IV ONE (10:00)
[2020-07-26] MEDS: FENTANYL CITRATE/PF 600 MCG/60 ML BAG IV PRN ×4 (11:53→21:56)
[2020-07-26] MEDS: NORMAL SALINE 100 ML with INSULIN REGULAR, HUMAN 100 UNIT IV PRN ×2 (11:58)
--- NOTE | 2020-07-26 19:27 | PDOC CRITICAL CARE PROG REPORT ---
General Date:: 07/26/20 ICU Day:: 4 Ventilator Day:: 4 Hospital Day:: 4 Resuscitation Status: Full Code Events in the past 12 to 24 Hours:: This 74-year-old obese female presented [facility] emerg ency department on 07/23/2020 with complaints of increased shortness of breath. She reported having a nonproductive cough over the previous week. No fevers. Acute increase in shortness of breath prompted her presentation. She was intubated in the emergency department with acute hypercapnic respiratory failure despite 2 hours of BiPAP support. 07/24: Diuresed briskly with a single dose of Lasix 40 mg IV. Airway pressures have decreased overall. ABG this a.m.: 7.53/43/83 on PRVC 16/480/60%/5. K 4.9 (down from 6.1). On propofol for sedation. 07/25: Currently on SIMV(PRVC) 12/480/60%/5 + PSV 10. Synchronous with ventilator set rate. ABG this a.m.: 7.44/62/70. K now down to 4.3. On pro pofol for sedation. Easily arousable. 07/26: Negative for COVID-19 pneumonia. Continues to have increasing propofol requirement for sedation. SIMV(PRVC) 16/480/60%/5 + PSV 10. ABG this a.m. 7.45/56/68. On insulin infusion for glucose control (home medication: Lantus 100 units subcutaneously nightly, insulin lispro sliding scale) K 4.5. Review of systems relevant to events:: Respiratory: Dyspnea Reason for ICU Addmission:: Acute hypercapnic respiratory failure - Medications: Medications reviewed and adjusted accordingly: Yes Sedation:: Propofol Physical Exam Vital Signs: Temp Pulse Resp BP Pulse Ox 98.4 F 86 14 110/60 92 07/26/20 10:00 07/26/20 08:18 07/26/20 10:00 07/26/20 09:59 07/26/20 10:00 Intake & Output 07/25/20 07/26/20 07/27/20 06:59 06:59 06:59 Intake Total 0959 6624 106 Output Total 4828 5970 325 Balance -1071 -46 -219 Weight 122 kg 121.2 kg Weight/Height Weight 121.2 kg Height 1.5 m General appearance: PRESENT: no acute distress, morbidly obese, well-developed, well-nourished Head exam: PRESENT: atraumatic, normocephalic Eye exam: PRESENT: conjunctiva pink, EOMI, PERRLA. ABSENT: scleral icterus Mouth exam: PRESENT: moist, tongue midline Respiratory exam: PRESENT: decreased breath sounds, rales, rhonchi, symmetrical, unlabored. ABSENT: wheezes Cardiovascular exam: PRESENT: RRR. ABSENT: diastolic murmur, rubs, systolic murmur Pulses: PRESENT: normal dorsalis pedis pul GI/Abdominal exam: PRESENT: normal bowel sounds, soft. ABSENT: distended, guarding, mass, organolmegaly, rebound, tenderness Gentrourinary exam: PRESENT: indwelling catheter Extremities exam: PRESENT: full ROM. ABSENT: calf tenderness, clubbing, pedal edema Neurological exam: PRESENT: altered, CN II-XII grossly intact. ABSENT: motor sensory deficit Psychiatric exam: PRESENT: agitated, anxious Skin exam: PRESENT: dry, intact, warm. ABSENT: cyanosis, rash Tubes/Lines: PRESENT: Endotracheal Tube Laboratory/Radiographs Laboratory Results: 07/26/20 04:32 07/26/20 04:32 07/25/20 07/25/20 07/26/20 04:57 10:26 04:32 WBC 11.6 H RBC 3.70 L Hgb 10.1 L Hct 31.5 L MCV 85 MCH 27.3 MCHC 32.0 RDW 14.9 H Plt Count 241 Seg Neutrophils % Not Reportable Carbonic Acid 1.87 H HCO3/H2CO3 Ratio 22:1 ABG pH 7.44 ABG pCO2 62.0 H ABG pO2 69.5 L ABG HCO3 41.2 H ABG O2 Saturation 94.0 ABG Base Excess 14.6 FiO2 60% Sodium 134.0 L Potassium 4.5 Chloride 88 L Carbon Dioxide 39 H Anion Gap 7 BUN 72 H Creatinine 1.46 H Est GFR ( Amer) 42 L Glucose 160 H Calcium 9.3 Phosphorus 6.0 H Magnesium 2.3 Triglycerides 226 H 07/26/20 07/26/20 04:32 06:45 WBC 12.3 H RBC 3.93 Hgb 10.8 L Hct 33.1 L MCV 84 MCH 27.4 MCHC 32.5 RDW 15.1 H Plt Count 264 Seg Neutrophils % Not Reportable Carbonic Acid 1.70 H HCO3/H2CO3 Ratio 22:1 ABG pH 7.45 ABG pCO2 56.4 H ABG pO2 68.2 L ABG HCO3 38.5 H ABG O2 Saturation 94.0 ABG Base Excess 12.5 FiO2 60% Sodium Potassium Chloride Carbon Dioxide Anion Gap BUN Creatinine Est GFR ( Amer) Glucose Calcium Phosphorus Magnesium Triglycerides 07/23/20 07/24/20 07/25/20 14:38 07:30 04:57 Troponin I 0.043 NT-Pro-B Natriuret Pep 5520 H 5920 H 6500 H Impressions: Chest CT 07/23/20 00:00 IMPRESSION: 1. Small right pleural effusion with adjacent atelectasis. 2. No consolidation or pneumothorax. Chest X-Ray 07/26/20 05:00 IMPRESSION: Slight improved aeration of lungs. All labs, radiographs, diagnostic studies and EKGs were personally reviewed: Yes In addition, reports of radiographic and diagnostic studies were read: Yes Assessment and Plan - Diagnosis (1) Acute on chronic respiratory failure with hypoxia and hypercapnia Is this a current diagnosis for this admission?: Yes Plan: * Bedside titration of vent settings: SIMV(PRVC) 12/450/50%/8 + PSV 10 titrate vent settings based on ABG results. * Furosemide 40 mg IV daily. (Of note, the patient takes hydrochlorothiazide 25 mg p.o. daily as part of her antihypertensive regimen.) * Continue propofol for sedation. Add fentanyl infusion. (2) Pleural effusion, right Is this a current diagnosis for this admission?: Yes Plan: * Radiographically improving. * Chest CT establishes that the patient has a free-flowing right-sided pleural effusion with associated compressive atelectasis. However, there are air bronchograms in the right middle lobe, which are not definitely associated with the pleural effusion. The patient should have follow-up radiographic imaging after clinical resolution to confirm radiographic resolution. * Diurese again today. * Chest x-ray in a.m. (3) Congestive heart failure Qualifiers: Heart failure chronicity: acute on chronic Is this a current diagnosis for this admission?: Yes Plan: * Furosemide 40 mg IV daily. * Repeat BNP in a.m. * 2D echo pending. (4) COPD exacerbation Is this a current diagnosis for this admission?: Yes Plan: * Continue aerosols. * Continue Solu-Medrol IV every 8 hours. (5) Diabetes mellitus type 2 in obese Is this a current diagnosis for this admission?: Yes Plan: * Continue insulin infusion. * Home regimen: Lantus 100 units subcutaneously nightly + insulin and lispro sliding scale. (6) Hyperkalemia Is this a current diagnosis for this admission?: Yes (7) Normocytic anemia Is this a current diagnosis for this admission?: Yes (8) Gastro-esophageal reflux disease without esophagitis Is this a current diagnosis for this admission?: Yes Plan: On Protonix. (9) Hypertension Qualifiers: Hypertension type: essential hypertension Qualified Code(s): I10 - Essential (primary) hypertension Is this a current diagnosis for this admission?: Yes (10) Morbid obesity Is this a current diagnosis for this admission?: Yes (11) Abnormal chest CT Is this a current diagnosis for this admission?: Yes Critical Time Critical Time (minutes): 60 Level of Care: ICU -: 1. The care of a critical patient is a dynamic process. This note is a commissary representative synopsis but static in nature. The timeframe for treatments given in order is not necessarily the actual time these treatments may have been done. 2. This patient requires critical care secondary to ongoing requirements for therapy not offered or safe outside the critical care environment. Transfer to a lower level of care will result in altered life or limb morbidity and mortality. 3. Multidisciplinary rounds completed. 4. ABCDE bundle addressed.
[2020-07-26] MEDS: CEFTRIAXONE 1 GM/D5W RTU 1 GM/50 ML RTUPB IV SCH (20:43)
[2020-07-26] MEDS: AZITHROMYCIN 500 MG in DEXTROSE 5%-WATER 250 ML IV SCH (21:07)
[2020-07-26] MEDS ORDERED: INSULIN GLARGINE,HUM.REC.ANLOG 1,000 UNIT/10 ML VIAL (PYX) SUBCUT ONE (22:36)
[2020-07-26] MEDS: INSULIN GLARGINE,HUM.REC.ANLOG 1,000 UNIT/10 ML VIAL SUBCUT SCH (22:39)
[2020-07-27] MEDS ORDERED: DEXTROSE 40% GEL 15 GM TUBE PO PRN ×2
[2020-07-27] MEDS ORDERED: GLUCAGON,HUMAN RECOMB 1 MG INJ IM PRN
[2020-07-27] MEDS ORDERED: DEXTROSE 50%-WATER 25 GM/50 ML DISP.SYRIN IV PRN ×2
[2020-07-27] MEDS ORDERED: INSULIN LISPRO 100 UNIT/ML 3 ML VIAL SUBCUT SCH
[2020-07-27] MEDS: INSULIN REG, HUMAN 100 UNIT/ML 3 ML VIAL (PYX) SUBCUT SCH ×6 (00:37→22:55)
[2020-07-27] MEDS: PROPOFOL 1,000 MG/100 ML INFUS..BTL IV PRN ×2 (00:38→03:20)
[2020-07-27] MEDS: ENALAPRILAT DIHYDRATE INJ/PF 1.25 MG/1 ML SDV IV SCH ×5 (00:41→18:18)
[2020-07-27] MEDS: ALBUTEROL SULFATE 0.083% NEB 2.5 MG/3 ML AMPUL NEB SCH ×4 (02:48→21:59)
[2020-07-27] MEDS ORDERED: DEXMEDETOMIDINE IN 0.9 % NACL 400 MCG/100 ML RTUPB IV ONE (04:14)
[2020-07-27] MEDS ORDERED: DEXMEDETOMIDINE IN 0.9 % NACL 400 MCG/100 ML RTUPB IV PRN (04:18)
[2020-07-27 05:24] LABS: ARTERIAL BLOOD BASE EXCESS 12.6 mmol/L; ARTERIAL BLOOD H2CO3 1.78 mmol/L (1.05-1.35); ARTERIAL BLOOD O2 SATURATION 93.9 % (94-98); ARTERIAL BLOOD PCO2 59.2 mmHg (35-45); ARTERIAL BLOOD PH 7.44 (7.35-7.45); ARTERIAL BLOOD TOTAL CO2 40.9 mmol/L (21-25)
[2020-07-27 05:28] LABS: ARTERIAL BLOOD FIO2 50%
[2020-07-27 05:34] LABS: ANION GAP 10 (5-19); BLOOD UREA NITROGEN 86 mg/dL (7-20); CALCIUM 9.2 mg/dL (8.4-10.2); CARBON DIOXIDE 37 mmol/L (22-30); CHLORIDE 86 mmol/L (98-107); GLUCOSE 220 mg/dL (75-110); PHOSPHORUS 7.3 mg/dL (2.5-4.5); POTASSIUM 5.4 mmol/L (3.6-5.0)
[2020-07-27] MEDS: HEPARIN SOD (PORCINE) 5,000 UNIT/ML 1 ML VIAL SUBCUT SCH ×3 (05:37→22:55)
[2020-07-27] MEDS: METHYLPREDNISOLONE INJ 40 MG/1 ML SDV IV SCH (05:38)
[2020-07-27] MEDS ORDERED: FUROSEMIDE INJ/PF 40 MG/4 ML SDV ONE (05:41)
[2020-07-27] MEDS ORDERED: FUROSEMIDE INJ/PF 40 MG/4 ML SDV IV ONE (06:15)
[2020-07-27 06:50] LABS: HEMATOCRIT 35.2 % (36.0-47.0); HEMOGLOBIN 11.2 g/dL (12.0-15.5); MEAN CORPUSCULAR HEMOGLOBIN 27.3 pg (27.0-33.4); MEAN CORPUSCULAR HGB CONC 31.9 g/dL (32.0-36.0); MEAN CORPUSCULAR VOLUME 86 fl (80-97); PLATELET COUNT 253 10^3/uL (150-450); RED BLOOD COUNT 4.12 10^6/uL (3.72-5.28); RED CELL DISTRIBUTION WIDTH 15.1 % (11.5-14.0); WHITE BLOOD COUNT 11.8 10^3/uL (4.0-10.5)
[2020-07-27 07:32] LABS: ABSOLUTE LYMPHOCYTES# (MANUAL) 0.5 10^3/uL (0.5-4.7); ABSOLUTE MONOCYTES # (MANUAL) 0.6 10^3/uL (0.1-1.4); BASOPHILS % (MANUAL) 0 % (0-2); EOSINOPHILS % (MANUAL) 0 % (0-6); LYMPHOCYTES % (MANUAL) 4 % (13-45); MONOCYTES % (MANUAL) 5 % (3-13); SEGMENTED NEUTROPHILS % (MAN) 91 % (42-78); TOTAL CELLS COUNTED 100
[2020-07-27 07:33] LABS: ANISOCYTOSIS 1+; PLATELET COMMENT ADEQUATE; POIKILOCYTOSIS SLIGHT; SCHISTOCYTES SLIGHT
[2020-07-27] MEDS ORDERED: METHYLPREDNISOLONE INJ 40 MG/1 ML SDV IV SCH (08:45)
--- NOTE | 2020-07-27 08:45 | PDOC CRITICAL CARE PROG REPORT ---
General Date:: 07/27/20 ICU Day:: 4 Hospital Day:: 4 Resuscitation Status: Full Code Events in the past 12 to 24 Hours:: Extubated and now off precedex Review of systems relevant to events:: Pulmonary Reason for ICU Addmission:: Acute hypercapnic respiratory failure and intubated. - Medications: Medications reviewed and adjusted accordingly: Yes Vasopressors:: None Sedation:: None, precedex off. Physical Exam Vital Signs: Temp Pulse Resp BP Pulse Ox 98.1 F 85 14 135/67 H 92 07/27/20 08:06 07/27/20 05:55 07/27/20 08:06 07/27/20 08:06 07/27/20 08:06 Intake & Output 07/26/20 07/27/20 07/28/20 06:59 06:59 06:59 Intake Total 1794 1059 51 Output Total 1840 1595 400 Balance -46 -536 -349 Weight 121.2 kg 120.1 kg Weight/Height Weight 120.1 kg Height 4 ft 11 in General appearance: PRESENT: no acute distress, cooperative, morbidly obese Head exam: PRESENT: atraumatic, normocephalic Eye exam: PRESENT: conjunctiva pink, EOMI, PERRLA. ABSENT: scleral icterus Ear exam: PRESENT: normal external ear exam Mouth exam: PRESENT: moist, tongue midline Respiratory exam: PRESENT: clear to auscultation ute, decreased breath sounds, unlabored. ABSENT: rales, rhonchi, wheezes Cardiovascular exam: PRESENT: RRR. ABSENT: diastolic murmur, rubs, systolic murmur GI/Abdominal exam: PRESENT: normal bowel sounds, soft. ABSENT: distended, guarding, mass, organolmegaly, rebound, tenderness Rectal exam: PRESENT: deferred Gentrourinary exam: PRESENT: indwelling catheter Extremities exam: PRESENT: +1 edema Musculoskeletal exam: PRESENT: normal inspection Neurological exam: PRESENT: alert, awake, oriented to person, oriented to place Psychiatric exam: PRESENT: appropriate affect, normal mood. ABSENT: homicidal ideation, suicidal ideation Skin exam: PRESENT: dry, intact, warm. ABSENT: cyanosis, rash Laboratory/Radiographs Laboratory Results: 07/27/20 04:23 07/27/20 04:23 07/27/20 07/27/20 07/27/20 04:23 04:23 05:12 WBC 11.8 H RBC 4.12 Hgb 11.2 L Hct 35.2 L MCV 86 MCH 27.3 MCHC 31.9 L RDW 15.1 H Plt Count 253 Seg Neutrophils % Not Reportable Carbonic Acid 1.78 H HCO3/H2CO3 Ratio 21:1 ABG pH 7.44 ABG pCO2 59.2 H ABG pO2 69.0 L ABG HCO3 39.0 H ABG O2 Saturation 93.9 L ABG Base Excess 12.6 FiO2 50% Sodium 133.4 L Potassium 5.4 H Chloride 86 L Carbon Dioxide 37 H Anion Gap 10 BUN 86 H Creatinine 1.73 H Est GFR ( Amer) 35 L Glucose 220 H Calcium 9.2 Phosphorus 7.3 H Magnesium 2.3 07/23/20 07/24/20 07/25/20 14:38 07:30 04:57 Troponin I 0.043 NT-Pro-B Natriuret Pep 5520 H 5920 H 6500 H 07/27/20 04:23 Troponin I NT-Pro-B Natriuret Pep 2770 H Impressions: Chest CT 07/23/20 00:00 IMPRESSION: 1. Small right pleural effusion with adjacent atelectasis. 2. No consolidation or pneumothorax. EKG: SR at 95. All labs, radiographs, diagnostic studies and EKGs were personally reviewed: Yes In addition, reports of radiographic and diagnostic studies were read: Yes Assessment and Plan - Diagnosis (1) Acute on chronic respiratory failure with hypoxia and hypercapnia Is this a current diagnosis for this admission?: Yes Plan: She was intubated for 2 days due to hypercarbia, less so hypoxia. She most likely has a degree of hypoventilation given her size. She does have some COPD but currently is not wheezing. (2) Diabetes mellitus type 2 in obese Is this a current diagnosis for this admission?: Yes Plan: Fair control with BG 160-220. Cutting back on steroids to q12h. (3) Gastro-esophageal reflux disease without esophagitis Is this a current diagnosis for this admission?: Yes Plan: Still on IV protonix. (4) Hypertension Qualifiers: Hypertension type: essential hypertension Qualified Code(s): I10 - Essential (primary) hypertension Is this a current diagnosis for this admission?: Yes Plan: Controlled. Holding off on Irbesartan. (5) Morbid obesity Is this a current diagnosis for this admission?: Yes Plan: Chronic and effecting her breathing some. Plan Summary: Needs to mobilize, get OOB. PT ordered. May downgrade later today. Critical Time Critical Time (minutes): 35 Level of Care: ICU Anticipated discharge: Home with Homehealth Anticipated DC Timeframe: Other -: 1. The care of a critical patient is a dynamic process. This note is a labor union business representative synopsis but static in nature. The timeframe for treatments given in order is not necessarily the actual time these treatments may have been done. 2. This patient requires critical care secondary to ongoing requirements for therapy not offered or safe outside the critical care environment. Transfer to a lower level of care will result in altered life or limb morbidity and mortality. 3. Multidisciplinary rounds completed. 4. ABCDE bundle addressed.
--- NOTE | 2020-07-27 08:47 | RADIOLOGY REPORT (SQ) ---
EXAM DESCRIPTION: CHEST SINGLE VIEW IMAGES COMPLETED DATE/TIME: 07/27/2020 5:44 am REASON FOR STUDY: ETT tube COMPARISON: CT chest 07/23/2020 Chest films 07/26/2020, 07/25/2020, 07/24/2020 EXAM PARAMETERS: NUMBER OF VIEWS: One view. TECHNIQUE: Single frontal radiographic view of the chest acquired. RADIATION DOSE: NA LIMITATIONS: None. FINDINGS: LUNGS AND PLEURA: Bibasilar consolidation unchanged. No gross pleural effusion or pneumot horax. MEDIASTINUM AND HILAR STRUCTURES: No masses. Contour normal. HEART AND VASCULAR STRUCTURES: Stable moderate cardiomegaly BONES: No acute findings. HARDWARE: Endotracheal tube tip 4 cm above the coco. Nasogastric tube tip and side port in the sto mach OTHER: Radiopaque breast implants IMPRESSION: Persistent bibasilar consolidation Endotracheal tube, nasogastric tube in good positioning. TECHNICAL DOCUMENTATION: JOB ID: [id number] [employer]- All Rights Reserved Reading location - IP/workstation name: [email or web address]
[2020-07-27] MEDS: BUDESONIDE NEB 0.25 MG/2 ML AMPUL NEB SCH ×2 (09:15→21:58)
[2020-07-27] MEDS ORDERED: HYDROCHLOROTHIAZIDE 25 MG TABLET PO SCH (10:00)
[2020-07-27] MEDS ORDERED: (PENDING PHARMACY ID) (Diltiazem Hcl [Diltiazem 24hr Er] 120 MG) PO SCH (10:00)
[2020-07-27] MEDS ORDERED: DILTIAZEM HCL 120 MG CAP.SR.24H PO SCH (10:00)
[2020-07-27] MEDS: PANTOPRAZOLE SODIUM 40 MG VIAL IV SCH (10:55)
[2020-07-27] MEDS: FUROSEMIDE INJ/PF 40 MG/4 ML SDV IV SCH (10:55)
[2020-07-27] MEDS: DILTIAZEM HCL 60 MG TABLET NG SCH ×2 (10:56→22:55)
[2020-07-27] MEDS: HYDROCHLOROTHIAZIDE 25 MG TABLET NG SCH (10:56)
[2020-07-27] MEDS: METHYLPREDNISOLONE INJ 125 MG/2 ML SDV IV SCH (18:18)
[2020-07-27] MEDS: CEFTRIAXONE 1 GM/D5W RTU 1 GM/50 ML RTUPB IV SCH (21:15)
[2020-07-27] MEDS: AZITHROMYCIN 500 MG in DEXTROSE 5%-WATER 250 ML IV SCH (22:55)
[2020-07-27] MEDS: INSULIN GLARGINE,HUM.REC.ANLOG 1,000 UNIT/10 ML VIAL SUBCUT SCH (23:03)
[2020-07-28] MEDS: ENALAPRILAT DIHYDRATE INJ/PF 1.25 MG/1 ML SDV IV SCH (00:50)
[2020-07-28] MEDS: ALBUTEROL SULFATE 0.083% NEB 2.5 MG/3 ML AMPUL NEB SCH ×4 (03:01→19:54)
[2020-07-28] MEDS: HEPARIN SOD (PORCINE) 5,000 UNIT/ML 1 ML VIAL SUBCUT SCH ×3 (05:53→21:44)
[2020-07-28 05:57] LABS: ANION GAP 8 (5-19); BLOOD UREA NITROGEN 92 mg/dL (7-20); CALCIUM 9.4 mg/dL (8.4-10.2); CHLORIDE 90 mmol/L (98-107); GLUCOSE 225 mg/dL (75-110); POTASSIUM 4.9 mmol/L (3.6-5.0)
[2020-07-28] MEDS: METHYLPREDNISOLONE INJ 125 MG/2 ML SDV IV SCH (05:58)
[2020-07-28 06:21] LABS: CARBON DIOXIDE 40 mmol/L (22-30)
[2020-07-28] MEDS ORDERED: INFLUENZA QUAD (6MOS+) 2020-21 VAC 0.5 ML SYR IM ONE (08:00)
[2020-07-28] MEDS: BUDESONIDE NEB 0.25 MG/2 ML AMPUL NEB SCH ×2 (08:38→19:54)
[2020-07-28] MEDS: INSULIN REG, HUMAN 100 UNIT/ML 3 ML VIAL (PYX) SUBCUT SCH ×4 (09:13→21:57)
[2020-07-28] MEDS: PREDNISONE 20 MG TABLET PO SCH (10:20)
[2020-07-28] MEDS: DILTIAZEM HCL 60 MG TABLET NG SCH ×2 (10:20→21:39)
[2020-07-28] MEDS: HYDROCHLOROTHIAZIDE 25 MG TABLET NG SCH (10:21)
[2020-07-28] MEDS: FUROSEMIDE INJ/PF 40 MG/4 ML SDV IV SCH (10:22)
--- NOTE | 2020-07-28 10:38 | PDOC CRITICAL CARE PROG REPORT ---
General Date:: 07/28/20 Hospital Day:: 5 Resuscitation Status: Full Code Events in the past 12 to 24 Hours:: Doing well, downgraded. Review of systems relevant to events:: Pulmonary. Reason for ICU Addmission:: Acute hypercapnic respiratory failure and intubated. - Medications: Medications reviewed and adjusted accordingly: Yes Vasopressors:: None Sedation:: None Physical Exam Vital Signs: Temp Pulse Resp BP Pulse Ox 97.5 F 95 21 H 168/79 H 97 07/28/20 08:00 07/28/20 08:30 07/28/20 08:00 07/28/20 08:00 07/28/20 08:00 Intake & Output 07/27/20 07/28/20 07/29/20 06:59 06:59 06:59 Intake Total 1359 351 Output Total 1595 3475 600 Balance -236 -3124 -600 Weight 120.1 kg 117 kg Weight/Height Weight 117 kg Height 4 ft 11 in General appearance: PRESENT: no acute distress, morbidly obese Head exam: PRESENT: atraumatic, normocephalic Eye exam: PRESENT: conjunctiva pink, EOMI, PERRLA. ABSENT: scleral icterus Ear exam: PRESENT: normal external ear exam Mouth exam: PRESENT: moist, tongue midline Respiratory exam: PRESENT: clear to auscultation ute, decreased breath sounds. ABSENT: rales, rhonchi, wheezes Cardiovascular exam: PRESENT: RRR. ABSENT: diastolic murmur, rubs, systolic murmur GI/Abdominal exam: PRESENT: normal bowel sounds, soft. ABSENT: distended, guarding, mass, organolmegaly, rebound, tenderness Rectal exam: PRESENT: deferred Extremities exam: PRESENT: full ROM. ABSENT: calf tenderness, clubbing, pedal edema Neurological exam: PRESENT: alert, awake, oriented to person, oriented to place, oriented to time, oriented to situation, CN II-XII grossly intact. ABSENT: motor sensory deficit Psychiatric exam: PRESENT: appropriate affect, normal mood. ABSENT: homicidal ideation, suicidal ideation Skin exam: PRESENT: dry, intact, warm. ABSENT: cyanosis, rash Laboratory/Radiographs Laboratory Results: 07/27/20 04:23 07/28/20 04:07 07/28/20 04:07 Sodium 137.7 Potassium 4.9 Chloride 90 L Carbon Dioxide 40 H* Anion Gap 8 BUN 92 H Creatinine 1.35 H Est GFR ( Amer) 47 L Glucose 225 H Calcium 9.4 Phosphorus 5.0 H D 07/25/20 12:01 Tracheal Aspirate Gram Stain - Final 07/25/20 12:01 Tracheal Aspirate Sputum Culture - Final GREATLY REDUCED NORMAL CRISTAL 07/23/20 07/24/20 07/25/20 14:38 07:30 04:57 Troponin I 0.043 NT-Pro-B Natriuret Pep 5520 H 5920 H 6500 H 07/27/20 04:23 Troponin I NT-Pro-B Natriuret Pep 2770 H Impressions: Chest CT 07/23/20 00:00 IMPRESSION: 1. Small right pleural effusion with adjacent atelectasis. 2. No consolidation or pneumothorax. Chest X-Ray 07/27/20 05:00 IMPRESSION: Persistent bibasilar consolidation Endotracheal tube, nasogastric tube in good positioning. All labs, radiographs, diagnostic studies and EKGs were personally reviewed: Yes In addition, reports of radiographic and diagnostic studies were read: Yes Assessment and Plan - Diagnosis (1) Acute on chronic respiratory failure with hypoxia and hypercapnia Is this a current diagnosis for this admission?: Yes Plan: Her serum bicarb is 40 indicating some degree of hypercapnea chronically. She is awake alert but weak (2) Diabetes mellitus type 2 in obese Is this a current diagnosis for this admission?: Yes Plan: BG 201. She is off IV steroids and on prednisone. (3) Gastro-esophageal reflux disease without esophagitis Is this a current diagnosis for this admission?: Yes Plan: Off IV protonix. (4) Hypertension Qualifiers: Hypertension type: essential hypertension Qualified Code(s): I10 - Essential (primary) hypertension Is this a current diagnosis for this admission?: Yes Plan: Controlled. Restart Irbesartan is BP goes higher. (5) Morbid obesity Is this a current diagnosis for this admission?: Yes Plan: Affecting ventilation and BP. Plan Summary: Needs to work more with PT and mobilize Critical Time Critical Time (minutes): 25 Level of Care: MEDICAL Anticipated discharge: Home Anticipated DC Timeframe: Other -: 1. The care of a critical patient is a dynamic process. This note is a union representative synopsis but static in nature. The timeframe for treatments given in order is not necessarily the actual time these treatments may have been done. 2. This patient requires critical care secondary to ongoing requirements for therapy not offered or safe outside the critical care environment. Transfer to a lower level of care will result in altered life or limb morbidity and mortality. 3. Multidisciplinary rounds completed. 4. ABCDE bundle addressed.
--- NOTE | 2020-07-28 12:11 | Progress Note ---
Provider Note Provider Note: Sign out given to Dr. De La Vega. Any questions feel free to call [phone].
--- NOTE | 2020-07-28 13:23 | XCELERA REPORT ---
[address] [address] Transthoracic Echocardiogram Report Name: BIANCA SERVIN Age: 74 yrs Gender: Female : 1945 Patient Status: Inpatient Patient Location: ICU^607^A Study Date: 07/27/2020 07:40 PM History: Dyspnea Height: 59 in Weight: 264 lb BSA: 2.1 m2 Procedure: A complete two-dimensional transthoracic echocardiogram was performed (2D, M-mode, spectral and color flow Doppler). The study was technically difficult with many images being suboptimal in quality. Reason For Study: dyspnea Previous Evaluation: No previous studies were available. History: Shortness of breath. Ordering Physician: ARIANA ACEVEDO Performed By: Elizabeth Sullivan Interpretation Summary The study was technically difficult with many images being suboptimal in quality. Left ventricular systolic function is mildly reduced. The Ejection Fraction estimate is 45-50% The right ventricular systolic function is mildly reduced. There is a trace amount of mitral regurgitation There is no aortic valve stenosis There is no pericardial effusion. MMode/2D Measurements & Calculations RVDd: 3.1 cm LVIDd: 5.2 cm FS: 23.0 % Ao root diam: 2.5 cm IVSd: 1.1 cm LVIDs: 4.0 cm EDV(Teich): 130.6 ml Ao root area: 5.0 cm2 LVPWd: 1.1 cm ESV(Teich): 70.9 ml LA dimension: 3.9 cm EF(Teich): 45.7 % Doppler Measurements & Calculations MV E max kallie: MV P1/2t max kallie: Ao V2 max: LV V1 max P.9 cm/sec 136.4 cm/sec 165.6 cm/sec 7.0 mmHg MV A max kallie: MV P1/2t: 50.0 msec Ao max PG: LV V1 max: 132.8 cm/sec MVA(P1/2t): 4.4 cm2 11.0 mmHg 132.3 cm/sec MV E/A: 0.93 MV dec slope: 799.2 cm/sec2 MV dec time: 0.23 sec PA V2 max: PI end-d kallie: MV P1/2t-pr_phl: 95.3 cm/sec 148.6 cm/sec 50.0 msec PA max P.6 mmHg Left Ventricle The left ventricle is normal in size. There is moderate concentric left ventricular hypertrophy. Left ventricular systolic function is mildly reduced. The Ejection Fraction estimate is 45-50%. Doppler measurements suggest impaired left ventricular relaxation, which is associated with grade I/IV or mild diastolic dysfunction. There is mild global hypokinesis of the left ventricle. Right Ventricle The right ventricle is normal size. The right ventricular systolic function is mildly reduced. Mitral Valve The mitral valve leaflets are sclerotic and show some degree of functional abnormality. There is a trace amount of mitral regurgitation. Aortic Valve The aortic valve is not well visualized secondary to technical limitations. There is no aortic valve stenosis. No aortic regurgitation is present. Tricuspid Valve The tricuspid valve is not well visualized, but is grossly normal. There is a trace amount of tricuspid regurgitation. Tricuspid regurgitation jet envelope not well defined to measure RV systolic pressure accurately. Pulmonic Valve The pulmonic valve is not well visualized. There is no pulmonic valvular stenosis. There is a trace amount of pulmonic regurgitation. Great Vessels The aortic root is normal size. The inferior vena cava appeared normal and decreased < 50% with respiration (RAP 10-15 mmHg). Effusions There is no pericardial effusion. : ARIANA ACEVEDO Anil
[2020-07-28] MEDS ORDERED: ACETAMINOPHEN 325 MG TABLET PO PRN (19:53)
[2020-07-28] MEDS: CEFTRIAXONE 1 GM/D5W RTU 1 GM/50 ML RTUPB IV SCH (20:29)
--- NOTE | 2020-07-28 21:30 | Progress Note ---
Provider Note Provider Note: Patient was seen and examined at bedside post ICU transfer. She is alert awake and oriented. She is on oxygen support via nasal cannula. Vital signs are stable. Management as stated in Dr. Jones's notes for today. Physical therapy to work with her in the morning. Full progress notes to follow in the morning
[2020-07-28] MEDS: INSULIN GLARGINE,HUM.REC.ANLOG 1,000 UNIT/10 ML VIAL SUBCUT SCH (21:45)
[2020-07-28] MEDS: AZITHROMYCIN 500 MG in DEXTROSE 5%-WATER 250 ML IV SCH (21:46)
[2020-07-29] MEDS: ALBUTEROL SULFATE 0.083% NEB 2.5 MG/3 ML AMPUL NEB SCH ×4 (01:58→19:57)
[2020-07-29] MEDS: HEPARIN SOD (PORCINE) 5,000 UNIT/ML 1 ML VIAL SUBCUT SCH ×3 (05:32→22:35)
[2020-07-29] MEDS: INSULIN REG, HUMAN 100 UNIT/ML 3 ML VIAL (PYX) SUBCUT SCH ×4 (07:26→22:36)
[2020-07-29] MEDS: BUDESONIDE NEB 0.25 MG/2 ML AMPUL NEB SCH (08:28)
[2020-07-29] MEDS: PREDNISONE 20 MG TABLET PO SCH (09:51)
[2020-07-29] MEDS: DILTIAZEM HCL 60 MG TABLET NG SCH ×2 (09:51→22:35)
[2020-07-29] MEDS: HYDROCHLOROTHIAZIDE 25 MG TABLET NG SCH (09:52)
[2020-07-29] MEDS ORDERED: CHOLECALCIFEROL PO SCH (10:00)
[2020-07-29] MEDS ORDERED: POLYETHYLENE GLYCOL 3350 POWDER 17 GM/1 PACKET PO ONE (10:45)
--- NOTE | 2020-07-29 17:39 | PDOC PROGRESS REPORT ---
Subjective Date:: 07/29/20 Subjective:: Patient is a 74-year-old female who presents to the emergency department for teo luation of increased shortness of breath. She has a history of COPD, CHF, oxygen dependent on 3 to 4 L per nasal cannula at home. She states has had a cough over the last several weeks. She cannot seem to make this cough productive. She tried some Mucinex today. No fevers. She states he became more acutely short of breath over the last several hours. Patient also states she has developed what she describes as "twitch." She states that she attributed this to the fact that she was on too much insulin, so she stopped taking all of it. She cannot tell me when she stopped taking it. She states he has been taking her other medications. She does not discuss any of these decisions with her primary care provider or her development system efficiency manager. She was initially placed on BiPAP in the emergency room for 2 hours however she failed to improve and became more acidotic and lethargic. She was eventually intubated in the emergency room and was subsequently admitted in the ICU. She was also noted to be hyperkalemic and and was given Lasix, Kayexalate. While in the ICU she was also briefly started on an insulin drip to control her blood glucose. There was note of free-flowing right-sided pleural effusion in her CT chest. She was successfully extubated on July 27, 2020. She was eventually transferred out of the ICU on July 28, 2020. She was transitioned from IV steroids to prednisone p.o. And was started on physical therapy. 07/29/20 She was seen and examined at bedside. She reports that her breathing is much better. She is on oxymizer for oxygen support. She did well working with physical therapy but expressed frustration that her strength is not back yet. She also complains of pain and limited range of motion right shoulder. No swelling or tenderness noted. Reason For Visit: ACUTE ON CHRONIC RESPIRATORY FAILURE WITH HYPOXIA Physical Exam Vital Signs: Temp Pulse Resp BP Pulse Ox 97.3 F 74 18 132/71 H 91 L 07/29/20 15:31 07/29/20 15:31 07/29/20 15:31 07/29/20 15:31 07/29/20 15:31 Intake & Output 07/28/20 07/29/20 07/30/20 06:59 06:59 06:59 Intake Total 351 790 240 Output Total 3475 1100 Balance -3124 -310 240 Weight 117 kg 117 kg 117 kg General appearance: PRESENT: cooperative, mild distress, morbidly obese Head exam: PRESENT: atraumatic, normocephalic Eye exam: PRESENT: EOMI, PERRLA Mouth exam: PRESENT: moist Neck exam: PRESENT: full ROM Respiratory exam: PRESENT: decreased breath sounds, symmetrical, unlabored Cardiovascular exam: PRESENT: RRR, +S1, +S2 GI/Abdominal exam: PRESENT: normal bowel sounds, soft. ABSENT: rebound, tenderness Extremities exam: PRESENT: other - Limited range of motion right shoulder Musculoskeletal exam: PRESENT: ambulatory Neurological exam: PRESENT: alert, awake, oriented to person, oriented to place, oriented to time, oriented to situation Psychiatric exam: PRESENT: normal mood Skin exam: PRESENT: normal color Results Laboratory Results: 07/27/20 04:23 07/28/20 04:07 07/23/20 20:57 Blood Blood Culture - Final NO GROWTH IN 5 DAYS 07/23/20 15:39 Blood Blood Culture - Final NO GROWTH IN 5 DAYS 07/23/20 07/24/20 07/25/20 14:38 07:30 04:57 Troponin I 0.043 NT-Pro-B Natriuret Pep 5520 H 5920 H 6500 H 07/27/20 04:23 Troponin I NT-Pro-B Natriuret Pep 2770 H Impressions: Chest CT 07/23/20 00:00 IMPRESSION: 1. Small right pleural effusion with adjacent atelectasis. 2. No consolidation or pneumothorax. Chest X-Ray 07/27/20 05:00 IMPRESSION: Persistent bibasilar consolidation Endotracheal tube, nasogastric tube in good positioning. Assessment and Plan - Diagnosis (1) Acute on chronic respiratory failure with hypoxia and hypercapnia Is this a current diagnosis for this admission?: Yes Plan: -Admitted on the to shortness of breath. Subsequently intubated after failing BiPAP -Extubated July 27, 2020. -Chronically on 3 L of oxygen via nasal cannula secondary to COPD - continue O2 support via oxymizer, titrate as needed -Continue inhalers -DuoNeb's as needed (2) COPD exacerbation Is this a current diagnosis for this admission?: Yes Plan: * Continue aerosols. * Continue Solu-Medrol IV every 8 hours. (3) Congestive heart failure Qualifiers: Heart failure chronicity: acute on chronic Is this a current diagnosis for this admission?: Yes Plan: - Last echo 07/27/20 LV systolic function mildly reduced. Ejection fraction 45 to 50%. RV systolic function mildly reduced. - BNP 2770 -Clinically looks euvolemic -We will continue to monitor (4) Hyperkalemia Is this a current diagnosis for this admission?: Yes Plan: - K 6.1>4.9 -Initially received Kayexalate, calcium gluconate - will CTM (5) Pleural effusion, right Is this a current diagnosis for this admission?: Yes Plan: - Radiographically improving. - Chest CT establishes that the patient has a free-flowing right-sided pleural effusion with associated compressive atelectasis. However, there are air bronchograms in the right middle lobe, which are not definitely associated with the pleural effusion. -We will repeat her chest x-ray tomorrow. no indication for thoracentesis as of now (6) Diabetes mellitus type 2 in obese Is this a current diagnosis for this admission?: Yes Plan: -On Lantus 30 units and sliding scale insulin -Blood glucose acceptable (7) Hypertension Qualifiers: Hypertension type: essential hypertension Qualified Code(s): I10 - Essential (primary) hypertension Is this a current diagnosis for this admission?: Yes Plan: -Blood pressure 132/71 -Home medications resumed (8) Morbid obesity Is this a current diagnosis for this admission?: Yes Plan: Affecting ventilation and BP. (9) Physical deconditioning Is this a current diagnosis for this admission?: Yes Plan: - criticial illness myopathy - PT/OT following - Home Pt/OT - Time Time Spent with patient: 25-34 minutes Medications reviewed and adjusted accordingly: Yes Anticipated Discharge Disposition: Home with Home Health Anticipated Discharge Timeframe: to be determined
[2020-07-29] MEDS: FLUTICASONE/UMECLIDIN/VILANTER 100-62.5-25 MCG/DOSE IH SCH (20:23)
[2020-07-29] MEDS: INSULIN GLARGINE,HUM.REC.ANLOG 1,000 UNIT/10 ML VIAL SUBCUT SCH (22:35)
[2020-07-29] MEDS: CEFTRIAXONE 1 GM/D5W RTU 1 GM/50 ML RTUPB IV SCH (22:35)
[2020-07-29] MEDS: AZITHROMYCIN 500 MG in DEXTROSE 5%-WATER 250 ML IV SCH (23:39)
[2020-07-30] MEDS: ALBUTEROL SULFATE 0.083% NEB 2.5 MG/3 ML AMPUL NEB SCH ×4 (02:12→20:47)
[2020-07-30] MEDS: HEPARIN SOD (PORCINE) 5,000 UNIT/ML 1 ML VIAL SUBCUT SCH ×3 (06:09→23:00)
[2020-07-30 06:51] LABS: HEMATOCRIT 35.5 % (36.0-47.0); HEMOGLOBIN 11.4 g/dL (12.0-15.5); MEAN CORPUSCULAR HEMOGLOBIN 27.5 pg (27.0-33.4); MEAN CORPUSCULAR HGB CONC 32.2 g/dL (32.0-36.0); MEAN CORPUSCULAR VOLUME 86 fl (80-97); PLATELET COUNT 253 10^3/uL (150-450); RED BLOOD COUNT 4.15 10^6/uL (3.72-5.28); RED CELL DISTRIBUTION WIDTH 14.9 % (11.5-14.0); WHITE BLOOD COUNT 7.8 10^3/uL (4.0-10.5)
[2020-07-30 07:11] LABS: ALBUMIN 3.1 g/dL (3.5-5.0); ALKALINE PHOSPHATASE 69 U/L (38-126); ASPARTATE AMINO TRANSFERASE 27 U/L (14-36); BILIRUBIN,DIRECT 0.3 mg/dL (0.0-0.4); BILIRUBIN,TOTAL 0.5 mg/dL (0.2-1.3); BLOOD UREA NITROGEN 75 mg/dL (7-20); CALCIUM 9.4 mg/dL (8.4-10.2); CHLORIDE 90 mmol/L (98-107); GLUCOSE 83 mg/dL (75-110); POTASSIUM 4.2 mmol/L (3.6-5.0)
[2020-07-30 07:15] LABS: ABSOLUTE LYMPHOCYTES# (MANUAL) 0.3 10^3/uL (0.5-4.7); ABSOLUTE MONOCYTES # (MANUAL) 0.9 10^3/uL (0.1-1.4); BAND NEUTROPHILS % (MANUAL) 1 % (3-5); BASOPHILS % (MANUAL) 0 % (0-2); EOSINOPHILS % (MANUAL) 2 % (0-6); LYMPHOCYTES % (MANUAL) 4 % (13-45); MONOCYTES % (MANUAL) 12 % (3-13); SEGMENTED NEUTROPHILS % (MAN) 81 % (42-78); TOTAL CELLS COUNTED 100
[2020-07-30 07:16] LABS: ANISOCYTOSIS SLIGHT; PLATELET COMMENT ADEQUATE
[2020-07-30 07:19] LABS: ANION GAP 9 (5-19)
[2020-07-30 07:23] LABS: CARBON DIOXIDE 39 mmol/L (22-30)
[2020-07-30] MEDS: INSULIN REG, HUMAN 100 UNIT/ML 3 ML VIAL (PYX) SUBCUT SCH ×4 (08:20→23:00)
[2020-07-30] MEDS ORDERED: (PENDING PHARMACY ID) (Irbesartan [Irbesartan] 300 MG) PO SCH (10:00)
[2020-07-30] MEDS: DILTIAZEM HCL 60 MG TABLET NG SCH ×2 (10:17→23:00)
[2020-07-30] MEDS: LOSARTAN POTASSIUM 50 MG TABLET PO SCH (10:18)
[2020-07-30] MEDS: PREDNISONE 20 MG TABLET PO SCH (10:18)
[2020-07-30] MEDS: HYDROCHLOROTHIAZIDE 25 MG TABLET NG SCH (10:18)
[2020-07-30] MEDS: FLUTICASONE/UMECLIDIN/VILANTER 100-62.5-25 MCG/DOSE IH SCH (10:19)
--- NOTE | 2020-07-30 10:52 | RADIOLOGY REPORT (SQ) ---
EXAM DESCRIPTION: SHOULDER RIGHT 2 OR MORE VIEWS IMAGES COMPLETED DATE/TIME: 07/29/2020 9:17 pm REASON FOR STUDY: right shoulder pain COMPARISON: None. NUMBER OF VIEWS: Three views. TECHNIQUE: Internal rotation, external rotation, and Y view images acquired of the right shoulder. LIMITATIONS: None. FINDINGS: MINERALIZATION: Normal. BONES: No acute fracture. No worrisome bone lesions. GLENOHUMERAL JOINT: Mild arthropathy. ACROMIOCLAVICULAR JOINT: Mild arthropathy. SOFT TISSUES: No calcifications. VISUALIZED RIBS, SPINE, AND LUNG: No other significant finding. OTHER: No other significant finding. IMPRESSION: Mild arthropathy. TECHNICAL DOCUMENTATION: JOB ID: [id number] [employer]- All Rights Reserved Reading location - IP/workstation name: [email or web address]
--- NOTE | 2020-07-30 20:25 | PDOC PROGRESS REPORT ---
Subjective Date:: 07/30/20 Subjective:: Patient is a 74-year-old female who presents to the emergency department for teo luation of increased shortness of breath. She has a history of COPD, CHF, oxygen dependent on 3 to 4 L per nasal cannula at home. She states has had a cough over the last several weeks. She cannot seem to make this cough productive. She tried some Mucinex today. No fevers. She states he became more acutely short of breath over the last several hours. Patient also states she has developed what she describes as "twitch." She states that she attributed this to the fact that she was on too much insulin, so she stopped taking all of it. She cannot tell me when she stopped taking it. She states he has been taking her other medications. She does not discuss any of these decisions with her primary care provider or her technology risk intern. She was initially placed on BiPAP in the emergency room for 2 hours however she failed to improve and became more acidotic and lethargic. She was eventually intubated in the emergency room and was subsequently admitted in the ICU. She was also noted to be hyperkalemic and and was given Lasix, Kayexalate. While in the ICU she was also briefly started on an insulin drip to control her blood glucose. There was note of free-flowing right-sided pleural effusion in her CT chest. She was successfully extubated on July 27, 2020. She was eventually transferred out of the ICU on July 28, 2020. She was transitioned from IV steroids to prednisone p.o. And was started on physical therapy. 07/29/20 She was seen and examined at bedside. She reports that her breathing is much better. She is on oxymizer for oxygen support. She did well working with physical therapy but expressed frustration that her strength is not back yet. She also complains of pain and limited range of motion right shoulder. No swelling or tenderness noted. 07/30/20 Seen and examined at bedside. Reports feeling much stronger today. Titrated off oxymizer to NC. She is tolerating it well. Trelegy started. Denies any chest pain, no SOB. Reason For Visit: ACUTE ON CHRONIC RESPIRATORY FAILURE WITH HYPOXIA Physical Exam Vital Signs: Temp Pulse Resp BP Pulse Ox 98.2 F 81 20 139/65 H 96 07/30/20 15:25 07/30/20 15:25 07/30/20 15:25 07/30/20 15:25 07/30/20 15:25 Intake & Output 07/29/20 07/30/20 07/31/20 06:59 06:59 06:59 Intake Total 790 540 480 Output Total 1100 600 Balance -310 540 -120 Weight 117 kg 117 kg General appearance: PRESENT: mild distress, morbidly obese Head exam: PRESENT: atraumatic, normocephalic Eye exam: PRESENT: EOMI, PERRLA Mouth exam: PRESENT: moist Neck exam: PRESENT: full ROM Respiratory exam: PRESENT: decreased breath sounds, symmetrical, unlabored Cardiovascular exam: PRESENT: RRR, +S1, +S2 Pulses: PRESENT: +2 pedal pulses bilateral GI/Abdominal exam: PRESENT: normal bowel sounds, soft. ABSENT: rebound, tenderness Extremities exam: PRESENT: full ROM Musculoskeletal exam: PRESENT: full ROM Neurological exam: PRESENT: alert, awake, oriented to person, oriented to place, oriented to time, oriented to situation Psychiatric exam: PRESENT: anxious Skin exam: PRESENT: normal color Results Laboratory Results: 07/30/20 05:20 07/30/20 05:20 07/30/20 07/30/20 05:20 05:20 WBC 7.8 RBC 4.15 Hgb 11.4 L Hct 35.5 L MCV 86 MCH 27.5 MCHC 32.2 RDW 14.9 H Plt Count 253 Seg Neutrophils % Not Reportable Sodium 137.8 Potassium 4.2 Chloride 90 L Carbon Dioxide 39 H Anion Gap 9 BUN 75 H Creatinine 1.02 Est GFR ( Amer) > 60 Glucose 83 Calcium 9.4 Total Bilirubin 0.5 AST 27 Alkaline Phosphatase 69 Total Protein 6.0 L Albumin 3.1 L 07/23/20 07/24/20 07/25/20 14:38 07:30 04:57 Troponin I 0.043 NT-Pro-B Natriuret Pep 5520 H 5920 H 6500 H 07/27/20 04:23 Troponin I NT-Pro-B Natriuret Pep 2770 H Impressions: Chest CT 07/23/20 00:00 IMPRESSION: 1. Small right pleural effusion with adjacent atelectasis. 2. No consolidation or pneumothorax. Chest X-Ray 07/27/20 05:00 IMPRESSION: Persistent bibasilar consolidation Endotracheal tube, nasogastric tube in good positioning. Shoulder X-Ray 07/29/20 00:00 IMPRESSION: Mild arthropathy. Assessment and Plan - Diagnosis (1) Acute on chronic respiratory failure with hypoxia and hypercapnia Is this a current diagnosis for this admission?: Yes Plan: -Admitted on the sixth 2 to shortness of breath. Subsequently intubated after failing BiPAP -Extubated July 27, 2020. -Chronically on 3 L of oxygen via nasal cannula secondary to COPD - continue O2 support via oxymizer, titrate as needed -Continue inhalers -DuoNeb's as needed (2) COPD exacerbation Is this a current diagnosis for this admission?: Yes Plan: - restarted her Trelegy - she would need a BIPAP at home - on rocephin/azithro and prednisone - will transition to oral abx tomorrow (3) Congestive heart failure Qualifiers: Heart failure chronicity: acute on chronic Is this a current diagnosis for this admission?: Yes Plan: - Last echo 07/27/20 LV systolic function mildly reduced. Ejection fraction 45 to 50%. RV systolic function mildly reduced. - BNP 2770 -Clinically looks euvolemic -We will continue to monitor (4) Hyperkalemia Is this a current diagnosis for this admission?: Yes Plan: - K 6.1>4.9>4.2 -Initially received Kayexalate, calcium gluconate - will CTM (5) Pleural effusion, right Is this a current diagnosis for this admission?: Yes Plan: - Radiographically improving. - Chest CT establishes that the patient has a free-flowing right-sided pleural effusion with associated compressive atelectasis. However, there are air bronchograms in the right middle lobe, which are not definitely associated with the pleural effusion. -We will repeat her chest x-ray tomorrow. no indication for thoracentesis as of now (6) Diabetes mellitus type 2 in obese Is this a current diagnosis for this admission?: Yes Plan: -On Lantus 30 units and sliding scale insulin -Blood glucose acceptable (7) Hypertension Qualifiers: Hypertension type: essential hypertension Qualified Code(s): I10 - Essential (primary) hypertension Is this a current diagnosis for this admission?: Yes Plan: -Blood pressure 132/71 -Home medications resumed (8) Morbid obesity Is this a current diagnosis for this admission?: Yes Plan: Affecting ventilation and BP. (9) Physical deconditioning Is this a current diagnosis for this admission?: Yes Plan: - criticial illness myopathy - PT/OT following - Home Pt/OT - Time Time Spent with patient: 25-34 minutes Medications reviewed and adjusted accordingly: Yes Anticipated Discharge Disposition: Home with Home Health Anticipated Discharge Timeframe: within 48 hours
[2020-07-30] MEDS: INSULIN GLARGINE,HUM.REC.ANLOG 1,000 UNIT/10 ML VIAL SUBCUT SCH (22:59)
[2020-07-31] MEDS: ALBUTEROL SULFATE 0.083% NEB 2.5 MG/3 ML AMPUL NEB SCH ×3 (02:05→13:58)
[2020-07-31] MEDS: HEPARIN SOD (PORCINE) 5,000 UNIT/ML 1 ML VIAL SUBCUT SCH ×2 (05:28→15:37)
[2020-07-31 05:54] LABS: HEMATOCRIT 37.6 % (36.0-47.0); HEMOGLOBIN 11.8 g/dL (12.0-15.5); MEAN CORPUSCULAR HEMOGLOBIN 26.7 pg (27.0-33.4); MEAN CORPUSCULAR HGB CONC 31.4 g/dL (32.0-36.0); MEAN CORPUSCULAR VOLUME 85 fl (80-97); PLATELET COUNT 262 10^3/uL (150-450); RED BLOOD COUNT 4.42 10^6/uL (3.72-5.28); RED CELL DISTRIBUTION WIDTH 14.7 % (11.5-14.0); WHITE BLOOD COUNT 8.7 10^3/uL (4.0-10.5)
[2020-07-31 06:17] LABS: ALBUMIN 3.5 g/dL (3.5-5.0); ALKALINE PHOSPHATASE 72 U/L (38-126); ASPARTATE AMINO TRANSFERASE 26 U/L (14-36); BILIRUBIN,DIRECT 0.3 mg/dL (0.0-0.4); BILIRUBIN,TOTAL 0.6 mg/dL (0.2-1.3); BLOOD UREA NITROGEN 72 mg/dL (7-20); CALCIUM 9.4 mg/dL (8.4-10.2); CHLORIDE 91 mmol/L (98-107); GLUCOSE 99 mg/dL (75-110); POTASSIUM 4.4 mmol/L (3.6-5.0); TOTAL PROTEIN 6.5 g/dL (6.3-8.2)
[2020-07-31 06:24] LABS: ANION GAP 7 (5-19)
[2020-07-31 06:28] LABS: CARBON DIOXIDE 38 mmol/L (22-30)
[2020-07-31 06:42] LABS: ABSOLUTE LYMPHOCYTES# (MANUAL) 0.4 10^3/uL (0.5-4.7); ABSOLUTE MONOCYTES # (MANUAL) 0.6 10^3/uL (0.1-1.4); ANISOCYTOSIS SLIGHT; BAND NEUTROPHILS % (MANUAL) 1 % (3-5); BASOPHILS % (MANUAL) 0 % (0-2); EOSINOPHILS % (MANUAL) 0 % (0-6); LYMPHOCYTES % (MANUAL) 5 % (13-45); MONOCYTES % (MANUAL) 7 % (3-13); PLATELET COMMENT ADEQUATE; SEGMENTED NEUTROPHILS % (MAN) 87 % (42-78); TOTAL CELLS COUNTED 100; TOXIC VACUOLATION PRESENT
[2020-07-31] MEDS: INSULIN REG, HUMAN 100 UNIT/ML 3 ML VIAL (PYX) SUBCUT SCH ×3 (08:05→15:48)
--- NOTE | 2020-07-31 08:26 | RADIOLOGY REPORT (SQ) ---
EXAM DESCRIPTION: CHEST 2 VIEWS IMAGES COMPLETED DATE/TIME: 07/31/2020 8:15 am REASON FOR STUDY: pleural effusion COMPARISON: 07/27/2020 EXAM PARAMETERS: NUMBER OF VIEWS: two views TECHNIQUE: Digital Frontal and Lateral radiographic views of the chest acquired. RADIATION DOSE: NA LIMITATIONS: none FINDINGS: LUNGS AND PLEURA: The patient has been extubated. There is basilar atelectasis. Findings are accentuated by low lung volumes. Probable right pleural effusion. MEDIASTINUM AND HILAR STRUCTURES: No masses or contour abnormalities. HEART AND VASCULAR STRUCTURES: Stable. BONES: No acute findings. HARDWARE: None in the chest. OTHER: Calcified breast implants are again noted. IMPRESSION: Basilar atelectasis. Small left pleural effusion. TECHNICAL DOCUMENTATION: JOB ID: [id number] 2010 [employer]- All Rights Reserved Reading location - IP/workstation name: [email or web address]
[2020-07-31] MEDS: LOSARTAN POTASSIUM 50 MG TABLET PO SCH (10:17)
[2020-07-31] MEDS: PREDNISONE 20 MG TABLET PO SCH (10:17)
[2020-07-31] MEDS: HYDROCHLOROTHIAZIDE 25 MG TABLET NG SCH (10:17)
[2020-07-31] MEDS: DILTIAZEM HCL 60 MG TABLET NG SCH (10:18)
[2020-07-31] MEDS: FLUTICASONE/UMECLIDIN/VILANTER 100-62.5-25 MCG/DOSE IH SCH (10:18)
[2020-07-31 16:41] VITALS: BP 106/56
--- NOTE | 2020-08-01 07:00 | PDOC DISCHARGE SUMMARY ---
Impression - Admit/DC Date/PCP Admission Date/Primary Care Provider: 07/23/20 18:20 Discharge Date: 08/01/20 - Discharge Diagnosis (1) Acute on chronic respiratory failure with hypoxia and hypercapnia Is this a current diagnosis for this admission?: Yes (2) COPD exacerbation Is this a current diagnosis for this admission?: Yes (3) Congestive heart failure Is this a current diagnosis for this admission?: Yes (4) Hyperkalemia Is this a current diagnosis for this admission?: Yes (5) Pleural effusion, right Is this a current diagnosis for this admission?: Yes (6) Diabetes mellitus type 2 in obese Is this a current diagnosis for this admission?: Yes (7) Hypertension Is this a current diagnosis for this admission?: Yes (8) Morbid obesity Is this a current diagnosis for this admission?: Yes (9) Physical deconditioning Is this a current diagnosis for this admission?: Yes - Assessment Summary: (1) Acute on chronic respiratory failure with hypoxia and hypercapnia Is this a current diagnosis for this admission?: Yes Plan: -Admitted on the sixth 2 to shortness of breath. Subsequently intubated after failing BiPAP -Extubated July 27, 2020. -Chronically on 3 L of oxygen via nasal cannula secondary to COPD - continue O2 support via oxymizer, titrate as needed -Continue inhalers -DuoNeb's as needed (2) COPD exacerbation Is this a current diagnosis for this admission?: Yes Plan: - restarted her Trelegy - she would need a BIPAP at home - on rocephin/azithro and prednisone - will transition to oral abx tomorrow (3) Congestive heart failure Qualifiers: Heart failure chronicity: acute on chronic Is this a current diagnosis for this admission?: Yes Plan: - Last echo 07/27/20 LV systolic function mildly reduced. Ejection fraction 45 to 50%. RV systolic function mildly reduced. - BNP 2770 -Clinically looks euvolemic -We will continue to monitor (4) Hyperkalemia Is this a current diagnosis for this admission?: Yes Plan: - K 6.1>4.9>4.2 -Initially received Kayexalate, calcium gluconate - will CTM (5) Pleural effusion, right Is this a current diagnosis for this admission?: Yes Plan: - Radiographically improving. - Chest CT establishes that the patient has a free-flowing right-sided pleural effusion with associated compressive atelectasis. However, there are air bronchograms in the right middle lobe, which are not definitely associated with the pleural effusion. -We will repeat her chest x-ray tomorrow. no indication for thoracentesis as of now (6) Diabetes mellitus type 2 in obese Is this a current diagnosis for this admission?: Yes Plan: -On Lantus 30 units and sliding scale insulin -Blood glucose acceptable (7) Hypertension Qualifiers: Hypertension type: essential hypertension Qualified Code(s): I10 - Essential (primary) hypertension Is this a current diagnosis for this admission?: Yes Plan: -Blood pressure 132/71 -Home medications resumed (8) Morbid obesity Is this a current diagnosis for this admission?: Yes Plan: Affecting ventilation and BP. (9) Physical deconditioning Is this a current diagnosis for this admission?: Yes Plan: - criticial illness myopathy - PT/OT following - Home Pt/OT - Additional Information Resuscitation Status: Full Code Discharge Diet: Diabetic, Other (Comments) Discharge Activity: Activity As Tolerated, Balance Activity w/Rest Referrals: [facility] [Outside] FLORENCE SHORT MD [COMMUNITY BASED STAFF] - Prescriptions: Umeclidinium Brm/Vilanterol Tr [Anoro Ellipta 62.5-25 Mcg INH] 1 each IH DAILY 30 Days #2 blst.w.dev Fluticasone Furoate [Arnuity Ellipta] 100 mcg IH DAILY 60 Days #2 blst.w.dev Levofloxacin [Levaquin 750 mg Tablet] 750 mg PO DAILY #10 tab Home Medications: Albuterol Sulfate [Proair HFA Inhalation Aerosol 8.5 gm MDI] 2 puff IH Q4HP PRN 03/07/20 Cholecalciferol (Vitamin D3) [Vitamin D3] 2 tab PO DAILY 03/07/20 Diltiazem HCl [Diltiazem 24Hr ER] 120 mg PO DAILY 03/07/20 Hydrochlorothiazide [Hydrodiuril 25 mg Tablet] 25 mg PO DAILY 03/07/20 Insulin Glargine,Hum.rec.anlog [Lantus (Pyxis) Insulin 100 Unit/1 ml 10 ml] 100 unit SQ QHS 03/07/20 Insulin Lispro [Humalog Insulin (Lispro) 100 unit/mL] 60 unit SQ AC 03/07/20 Irbesartan 300 mg PO DAILY 03/07/20 Fluticasone Furoate [Arnuity Ellipta] 100 mcg IH DAILY 60 Days #2 blst.w.dev 07/31/20 Levofloxacin [Levaquin 750 mg Tablet] 750 mg PO DAILY #10 tab 07/31/20 Umeclidinium Brm/Vilanterol Tr [Anoro Ellipta 62.5-25 Mcg INH] 1 each IH DAILY 30 Days #2 blst.w.dev 07/31/20 History of Present Illiness History of Present Illness: Patient is a 74-year-old female who presents to the emergency department for evaluation of increased shortness of breath. She has a history of COPD, CHF, oxygen dependent on 3 to 4 L per nasal cannula at home. She states has had a cough over the last several weeks. She cannot seem to make this cough productive. She tried some Mucinex today. No fevers. She states he became more acutely short of breath over the last several hours. Patient also states she has developed what she describes as "twitch." She states that she attributed this to the fact that she was on too much insulin, so she stopped taking all of it. She cannot tell me when she stopped taking it. She states he has been taking her other medications. She does not discuss any of these decisions with her primary care provider or her shift engineer. She was initial ly placed on BiPAP in the emergency room for 2 hours however she failed to improve and became more acidotic and lethargic. She was eventually intubated in the emergency room and was subsequently admitted in the ICU. She was also noted to be hyperkalemic and and was given Lasix, Kayexalate. While in the ICU she was also briefly started on an insulin drip to control her blood glucose. There was note of free-flowing right-sided pleural effusion in her CT chest. She was successfully extubated on July 27, 2020. She was eventually transferred out of the ICU on July 28, 2020. She was transitioned from IV steroids to prednisone p.o. And was started on physical therapy. Hospital Course Hospital Course: 07/29/20 She was seen and examined at bedside. She reports that her breathing is much better. She is on oxymizer for oxygen support. She did well working with physical therapy but expressed frustration that her strength is not back yet. She also complains of pain and limited range of motion right shoulder. No swelling or tenderness noted. 07/30/20 Seen and examined at bedside. Reports feeling much stronger today. Titrated off oxymizer to NC. She is tolerating it well. Trelegy started. Denies any chest pain, no SOB. 07/31/20 She was able to participate more with physical therapy. We discussed that if she is unable to use her trerely then we should just switch her back to Anoro ellipta and arnuity since this is what she is familiar with. She was told to follow up with her PCP and lung doctor Physical Exam Vital Signs: Temp Pulse Resp BP Pulse Ox 98.2 F 85 17 106/56 L 96 07/31/20 15:38 07/31/20 15:38 07/31/20 15:38 07/31/20 15:38 07/31/20 15:38 Intake & Output 07/30/20 07/31/20 08/01/20 06:59 06:59 06:59 Intake Total 540 730 Output Total 600 Balance 540 130 Weight 117 kg 115.8 kg General appearance: PRESENT: cooperative, mild distress, morbidly obese Head exam: PRESENT: atraumatic Eye exam: PRESENT: EOMI, PERRLA Ear exam: PRESENT: normal external ear exam Neck exam: PRESENT: full ROM Respiratory exam: PRESENT: decreased breath sounds, symmetrical, unlabored Cardiovascular exam: PRESENT: RRR, +S1, +S2 Pulses: PRESENT: +2 pedal pulses bilateral GI/Abdominal exam: PRESENT: normal bowel sounds, soft. ABSENT: rebound, tenderness Extremities exam: PRESENT: full ROM Musculoskeletal exam: PRESENT: full ROM Neurological exam: PRESENT: alert, awake, oriented to person, oriented to time, oriented to situation Psychiatric exam: PRESENT: agitated Skin exam: PRESENT: normal color Results Laboratory Results: WBC 8.7 10^3/uL (4.0-10.5) 07/31/20 04:42 RBC 4.42 10^6/uL (3.72-5.28) 07/31/20 04:42 Hgb 11.8 g/dL (12.0-15.5) L 07/31/20 04:42 Hct 37.6 % (36.0-47.0) 07/31/20 04:42 MCV 85 fl (80-97) 07/31/20 04:42 MCH 26.7 pg (27.0-33.4) L 07/31/20 04:42 MCHC 31.4 g/dL (32.0-36.0) L 07/31/20 04:42 RDW 14.7 % (11.5-14.0) H 07/31/20 04:42 Plt Count 262 10^3/uL (150-450) 07/31/20 04:42 Lymph % (Auto) Not Reportable 07/31/20 04:42 Pondera % (Auto) Not Reportable 07/31/20 04:42 Eos % (Auto) Not Reportable 07/31/20 04:42 Baso % (Auto) Not Reportable 07/31/20 04:42 Absolute Neuts (auto) Not Reportable 07/31/20 04:42 Absolute Lymphs (auto) Not Reportable 07/31/20 04:42 Absolute Monos (auto) Not Reportable 07/31/20 04:42 Absolute Eos (auto) Not Reportable 07/31/20 04:42 Absolute Basos (auto) Not Reportable 07/31/20 04:42 Total Counted 100 07/31/20 04:42 Seg Neutrophils % Not Reportable 07/31/20 04:42 Seg Neuts % (Manual) 87 % (42-78) H 07/31/20 04:42 Band Neutrophils % 1 % (3-5) L 07/31/20 04:42 Lymphocytes % (Manual) 5 % (13-45) L 07/31/20 04:42 Atypical Lymphs % 1 % (0) 07/25/20 04:57 Monocytes % (Manual) 7 % (3-13) 07/31/20 04:42 Eosinophils % (Manual) 0 % (0-6) 07/31/20 04:42 Basophils % (Manual) 0 % (0-2) 07/31/20 04:42 Abs Neuts (Manual) 7.7 10^3/uL (1.7-8.2) 07/31/20 04:42 Abs Lymphs (Manual) 0.4 10^3/uL (0.5-4.7) L 07/31/20 04:42 Abs Monocytes (Manual) 0.6 10^3/uL (0.1-1.4) 07/31/20 04:42 Absolute Eos (Manual) 0.0 10^3/uL (0.0-0.6) 07/31/20 04:42 Abs Basophils (Manual) 0.0 10^3/uL (0.0-0.2) 07/31/20 04:42 Toxic Vacuolation PRESENT 07/31/20 04:42 Clumped Platelets PRESENT 07/24/20 07:30 Large Platelets PRESENT 07/23/20 14:38 Platelet Comment ADEQUATE 07/31/20 04:42 Poikilocytosis SLIGHT 07/27/20 04:23 Anisocytosis SLIGHT 07/31/20 04:42 Ovalocytes 1+ 07/26/20 04:32 Schistocytes SLIGHT 07/27/20 04:23 RBC Morph Comment NORMO-CYTIC/CHROMIC 07/25/20 04:57 PT 12.8 SEC (11.4-15.4) 07/23/20 23:17 INR 0.94 07/23/20 23:17 INR (Anticoag Therapy) Cancelled 07/23/20 20:57 APTT 26.4 SEC (23.5-35.8) 07/23/20 23:17 D-Dimer 1.19 ug/mL (0.00-0.50) H 07/23/20 23:17 Carbonic Acid 1.78 mmol/L (1.05-1.35) H 07/27/20 05:12 HCO3/H2CO3 Ratio 21:1 07/27/20 05:12 ABG pH 7.44 (7.35-7.45) 07/27/20 05:12 ABG pCO2 59.2 mmHg (35-45) H 07/27/20 05:12 ABG pO2 69.0 mmHg (80-100) L 07/27/20 05:12 ABG HCO3 39.0 mmol/L (20-24) H 07/27/20 05:12 ABG Total CO2 40.9 mmol/L (21-25) H 07/27/20 05:12 ABG O2 Saturation 93.9 % (94-98) L 07/27/20 05:12 ABG Base Excess 12.6 mmol/L 07/27/20 05:12 FiO2 50% 07/27/20 05:12 Sodium 136.3 mmol/L (137-145) L 07/31/20 04:42 Potassium 4.4 mmol/L (3.6-5.0) 07/31/20 04:42 Chloride 91 mmol/L (98-107) L 07/31/20 04:42 Carbon Dioxide 38 mmol/L (22-30) H 07/31/20 04:42 Anion Gap 7 (5-19) 07/31/20 04:42 BUN 72 mg/dL (7-20) H 07/31/20 04:42 Creatinine 0.89 mg/dL (0.52-1.25) 07/31/20 04:42 Est GFR ( Amer) > 60 (>60) 07/31/20 04:42 Est GFR (MDRD) Non-Af > 60 (>60) 07/31/20 04:42 Glucose 99 mg/dL (75-110) 07/31/20 04:42 POC Glucose 339 mg/dL (70-110) H 07/31/20 15:38 Lactic Acid 1.7 mmol/L (0.7-2.1) 07/23/20 23:17 Calcium 9.4 mg/dL (8.4-10.2) 07/31/20 04:42 Phosphorus 5.0 mg/dL (2.5-4.5) H D 07/28/20 04:07 Magnesium 2.3 mg/dL (1.6-2.3) 07/27/20 04:23 Ferritin 68.20 ng/mL (11.1-264.0) 07/23/20 23:17 Total Bilirubin 0.6 mg/dL (0.2-1.3) 07/31/20 04:42 Direct Bilirubin 0.3 mg/dL (0.0-0.4) 07/31/20 04:42 Neonat Total Bilirubin Not Reportable 07/31/20 04:42 Neonat Direct Bilirubin Not Reportable 07/31/20 04:42 Neonat Indirect Bili Not Reportable 07/31/20 04:42 AST 26 U/L (14-36) 07/31/20 04:42 ALT 33 U/L (<35) 07/31/20 04:42 Alkaline Phosphatase 72 U/L (38-126) 07/31/20 04:42 Lactate Dehydrogenase 305 U/L (120-246) H 07/23/20 23:17 Troponin I 0.043 ng/mL 07/23/20 14:38 C-Reactive Protein 20.7 mg/L (<10.0) H 07/23/20 23:17 NT-Pro-B Natriuret Pep 2770 pg/mL (<125) H 07/27/20 04:23 Total Protein 6.5 g/dL (6.3-8.2) 07/31/20 04:42 Albumin 3.5 g/dL (3.5-5.0) 07/31/20 04:42 Prealbumin 15.2 mg/dL (17.6-36.0) L 07/24/20 07:30 Triglycerides 226 mg/dL (<150) H 07/26/20 04:32 Interleukin 6 48.6 pg/mL (0.0-12.2) H 07/23/20 23:17 Procalcitonin 0.18 ng/mL (0.00-0.08) H 07/25/20 04:57 COVID-19 Source See comment 07/23/20 19:00 COVID-19 (TRICIA) Not Detected (Not Detect) 07/23/20 19:00 07/23/20 07/24/20 07/25/20 14:38 07:30 04:57 Troponin I 0.043 NT-Pro-B Natriuret Pep 5520 H 5920 H 6500 H 07/27/20 04:23 Troponin I NT-Pro-B Natriuret Pep 2770 H Impressions: Chest CT 07/23/20 00:00 IMPRESSION: 1. Small right pleural effusion with adjacent atelectasis. 2. No consolidation or pneumothorax. Chest X-Ray 07/23/20 14:08 IMPRESSION: Limited examination demonstrating a right-sided pleural effusion with compressive atelectasis versus consolidation of the right lower lobe. Given lack of overt central vascular congestion, favor infectious etiology. Chest X-Ray 07/23/20 17:51 IMPRESSION: Endotracheal tube and NG tube as described. Right pleural effusion with associated atelectasis. Cardiomegaly without lakisha pulmonary edema. Chest X-Ray 07/24/20 05:00 IMPRESSION: Minimal improvement aeration in the right base. Increasing left pleural effusion. Chest X-Ray 07/25/20 05:00 IMPRESSION: Bibasilar effusions, atelectasis, left opacity. No interval change. SUPPORT DEVICE(S) IN EXPECTED LOCATIONS. Chest X-Ray 07/26/20 05:00 IMPRESSION: Slight improved aeration of lungs. Chest X-Ray 07/27/20 05:00 IMPRESSION: Persistent bibasilar consolidation Endotracheal tube, nasogastric tube in good positioning. Shoulder X-Ray 07/29/20 00:00 IMPRESSION: Mild arthropathy. Chest X-Ray 07/31/20 00:00 IMPRESSION: Basilar atelectasis. Small left pleural effusion. Plan Plan of Treatment: follow up with PCP She needs a CPAP at home and needs another sleep study. PCP to set it up. Stroke Is this a Stroke Patient?: No Acute Heart Failure Is this a Heart Failure Patient?: No
== END 2020-07-31 18:51 | disposition home health service (06) | DRG 208 ==
LOC: ER 14:01 → EH 18:20 → ICU 20:20 → 4W 07-28 12:36
PROVIDERS: ADMIT Internal Medicine; ATTEND Internal Medicine
PROC: 3E02340 Introduction of Influenza Vaccine into Muscle, Percutaneous Approach (ICD-10-PCS; 2020-07-21)
PROC: 5A1945Z Respiratory Ventilation, 24-96 Consecutive Hours (ICD-10-PCS; principal; 2020-07-23)
PROC: 0BH17EZ Insertion of Endotracheal Airway into Trachea, Via Natural or Artificial Opening (ICD-10-PCS; 2020-07-23)
DX: J96.22 Acute and chronic respiratory failure with hypercapnia (principal); I50.23 Acute on chronic systolic (congestive) heart failure; J18.9 Pneumonia, unspecified organism; J44.1 Chronic obstructive pulmonary disease with (acute) exacerbation; J44.0 Chronic obstructive pulmonary disease with (acute) lower respiratory infection; J98.11 Atelectasis; I11.0 Hypertensive heart disease with heart failure; Z99.81 Dependence on supplemental oxygen; D63.1 Anemia in chronic kidney disease; J96.21 Acute and chronic respiratory failure with hypoxia; E87.5 Hyperkalemia; E11.9 Type 2 diabetes mellitus without complications; E66.01 Morbid (severe) obesity due to excess calories; K21.9 Gastro-esophageal reflux disease without esophagitis; I48.91 Unspecified atrial fibrillation; Z23 Encounter for immunization; Z79.4 Long term (current) use of insulin; Z79.899 Other long term (current) drug therapy; Z88.8 Allergy status to other drugs, medicaments and biological substances; Z91.018 Allergy to other foods; Z11.59 Encounter for screening for other viral diseases; Z87.891 Personal history of nicotine dependence; Z82.49 Family history of ischemic heart disease and other diseases of the circulatory system
CPT/HCPCS: 36415; 36600; 71045; 71046; 71250; 80048; 80053; 82728; 82803; 82962; 83520; 83605; 83615; 83735; 83880; 84100; 84134; 84145; 84478; 84484; 85025; 85379; 85610; 85730; 86140; 87040; 87070; 87205; 87635; 90471; 90686; 93005; 93010; 93306; 94002; 94003; 94640; 96374; 96375; 99285; 99291; 99292; C9113; C9803; G0008; J0456; J0696; J1644; J1815; J1940; J2704; J2920; J2930; J3010; J3475; J3490; J7050; J7060; J7512; J7613

== ENCOUNTER → 2020-10-08 | Outpatient (CLI) | payer MEDICARE ==
--- NOTE | 2020-10-08 13:50 | RADIOLOGY REPORT (SQ) ---
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 TECHNIQUE: Dynamic and static kim-scale images acquired of the thyroid gland. Selected additional c olor/power Doppler images recorded. All images stored to PACS. LIMITATIONS: None. FINDINGS: RIGHT LOBE: Normal size. Heterogeneous echotexture. There is an 8 x 7 x 8 mm TI-RADS 3 n odule superficially within the mid thyroid lobe and a 9 x 7 x 9 mm TI-RADS 3 nodule posteriorly withi n the inferior thyroid lobe. LEFT LOBE: Normal size. Heterogeneous echotexture. No cystic or solid masses. ISTHMUS: Normal size. Heterogeneous echotexture. No cystic or solid masses. OTHER: No other significant finding. IMPRESSION: 2 TI-RADS 3 nodules within the right thyroid lobe. Given small size, current ACR guidel chris do not recommend any further follow-up imaging or tissue sampling. Background of diffusely hete rogeneous echotexture without hyperemia. COMMENT: The [employer] (ACR) Thyroid Imaging Reporting And Data System (TI-RADS ) is an ultrasound feature based summed scoring system of risk categorization and management recommen dations for thyroid nodules. TI-RADS assessment categories are as follows: 0 - Incomplete exam: Additional imaging or comparison to prior examinations recommended. 1. - Benign: Fine-needle aspiration or follow-up not routinely recommended in the absence of clinical change. 2. - Not suspicious: Fine-needle aspiration or follow-up not routinely recommended in the absence of clinical change. 3. - Mildly suspicious: Fine-needle aspiration recommended if greater than or equal to 2.5 cm in size . Ultrasound follow-up recommended if greater than or equal to 1.5 cm in size. Follow-up at 1, 3, and 5 years. 4. - Moderately suspicious: Fine-needle aspiration recommended if greater than or equal to 1.5 cm in size. Ultrasound follow-up recommended if greater than or equal to 1.0 cm in size. Follow-up at 1, 2, 3, and 5 years. 5. - Highly suspicious: Fine-needle aspiration recommended if greater than or equal to 1.0 cm in size . Ultrasound follow-up recommended if greater than or equal to 0.5 cm in size. Follow-up at 1, 2, 3, and 5 years. TECHNICAL DOCUMENTATION: JOB ID: [id number] 2010 [employer] | [email or web address]- All Rights Reserved Reading location - IP/workstation name: [email or web address]"
== END ==
LOC: RAD 12:54
PROVIDERS: ATTEND Family Medicine
DX: E01.0 Iodine-deficiency related diffuse (endemic) goiter (principal)
CPT/HCPCS: 76536